=== PATIENT | male | born 1940 | race Caucasian/White ===

== ENCOUNTER → 2017-12-16 10:57 | Outpatient (CLI) | payer MEDICARE, OTHER, SELFPAY ==
[2017-12-16 12:11] LABS: PSA,Total- Diagnostic 3.18 ng/mL (0.0-4.0)
== END ==
PROVIDERS: Family Provider Preventive Medicine Occupational Medicine; PCP Preventive Medicine Occupational Medicine; Visit Provider Nurse Practitioner Adult Health
DX: C61 Malignant neoplasm of prostate (principal)
CPT/HCPCS: 36415; 84153; 84403

== ENCOUNTER → 2018-01-15 17:15 | Outpatient (CLI) | payer MEDICARE, OTHER, SELFPAY ==
--- NOTE | 2018-01-15 | IMM_PTH ---
PATIENT: JOSIE KERNS LOC: [facility] U#:[id number] AGE/SX: 85/M ROOM: RE01/15/[address]: Dr. Vega Azevedo MD : 1940 BED: DIS: SPEC #: [id number] RECD: 01/19/18 11:19 STATUS: GEORGES RELiza #: [id number] JEREMY: 01/15/18 00:[address]: Vega Azevedo DEPT: IMMUNOHISTOCHEMISTRY RECD BY: Pat Tony ENTERED: 01/19/18 11:21 SP TYPE: IMMUNO OTHR DR: Dr. Nathan Black DO Tissues: A - PROSTATE RIGHT B - PROSTATE RIGHT D - PROSTATE LEFT E - PROSTATE LEFT F - PROSTATE LEFT Procedures: 34BE12 (add) P40 (add) 34BE12 (initial) PHYSICIAN & INSTITUTION [place] [id number] SPECIMEN INFORMATION: Tissue Source: A - Right apex, B - Right mid, D - Left apex, E - Left mid, F - Left base Clinical Info: Elevated PSA Specimen Number: [id number] A, B, D, E, F CPT code: 70236, 62703 x9 METHODOLOGY: Deparaffinized sections of prefer/formalin-fixed tissue or PAP/DQ stained slides are incubated with monoclonal/polyclonal antibodies/oligonucleotide probes. Localization is made via biotin free immunoperoxidase method. Appropriate controls are performed and reacted as expected. Results on target cell population are indicated in the following table: RESULTS: ANTIBODY / CLONE RESULT Block A P40 (BC28) negative 34BE12 (34BE12) negative Block B P40 (BC28) negative 34BE12 (34BE12) negative Block D P40 (BC28) negative 34BE12 (34BE12) negative Block E P40 (BC28) negative 34BE12 (34BE12) negative Block F P40 (BC28) negative 34BE12 (34BE12) negative These tests were developed and their performance characteristics determined by [facility]. They may not have been cleared or approved by the U.S. Food and Drug Administration. The FDA has determined that such clearance or approval is not necessary. INTERPRETATION: A. Right prostate, apex, core biopsy: Adenocarcinoma. B. Right prostate, mid, core biopsy: Adenocarcinoma. D. Left prostate, apex, core biopsy: Adenocarcinoma. E. Left prostate, mid, core biopsy: Focal atypical acinar proliferation suspicious for carcinoma. F. Left prostate, base, core biopsy: Adenocarcinoma. AM:luis 01/20/18
--- NOTE | 2018-01-15 11:15 | PROSBIL_PTH ---
PATIENT: JOSIE KERNS LOC: [facility] U#:[id number] AGE/SX: 85/M ROOM: RE01/15/[address]: Dr. Vega Azevedo MD : 1940 BED: DIS: SPEC #: [id number] RECD: 01/15/18 16:34 STATUS: GEORGES RELiza #: [id number] JEREMY: 01/15/18 11:[address]: Vega Azevedo DEPT: SURGICAL PATHOLOGY RECD BY: Jerald Hale ENTERED: 01/16/18 10:57 SP TYPE: PROST BX VIVIANA DR: Dr. Nathan Black DO Tissues: A - PROSTATE RIGHT B - PROSTATE RIGHT C - PROSTATE RIGHT D - PROSTATE LEFT E - PROSTATE LEFT F - PROSTATE LEFT Procedures: PROSTATE BX HEADER OPERATION: Prostate biopsy PRE-OP DIAGNOSIS: Elevated PSA TISSUE SUBMITTED: A - Right apex, B - Right mid, C - Right base, D - Left apex, E - Left mid, F - Left base MICROSCOPIC DIAGNOSIS A. Right prostate, apex, core biopsy: Adenocarcinoma: [place] grade: 6 (3+3) Cores involved: 2 out of 2 Tissue involved: 5% Greatest tumor length: 8 mm (discontinuous). B. Right prostate, mid, core biopsy: Adenocarcinoma: [place] grade: 6 (3+3) Cores involved: 2 out of 2 Tissue involved: 5% Greatest tumor length: 3 mm Perineural invasion: Positive C. Right prostate, base, core biopsy: Adenocarcinoma: Matthew grade: 6 (3+3) Cores involved: 2 out of 2 Tissue involved: 55% Greatest tumor length: 10 mm Perineural invasion: Positive D. Left prostate, apex, core biopsy: Adenocarcinoma: [place] grade: 6 (3+3) Cores involved: 1 out of 2 Tissue involved: 1% Greatest tumor length: 1 mm E. Left prostate, mid, core biopsy: Atypical small acinar proliferation suspicious for minute focus of adenocarcinoma. F. Left prostate, base, core biopsy: Adenocarcinoma: Matthew grade: 6 (3+3) Cores involved: 1 out of 2 Tissue involved: 20% Greatest tumor length: 4 mm AM:luis 01/19/18 COMMENT Immunohistochemistry ([id number]) supports the above diagnosis. Reference is made to the patient?s prostate, needle core biopsies from 2017 ([id number]) in which adenocarcinoma was identified. MICROSCOPIC DESCRIPTION Slides are reviewed. GROSS DESCRIPTION A - Received is one container designated prostate, right apex. The specimen consists of two elongated fragments of light holden-white soft tissue measuring 1.3 and 1.5 cm in length and 0.1 cm in diameter. The specimen is totally submitted in one cassette. B - Received is one container designated prostate, right mid. The specimen consists of two elongated fragments of light holden-white soft tissue each measuring 1.5 cm in length and 0.1 cm in diameter. The specimen is totally submitted in one cassette. C - Received is one container designated prostate, right base. The specimen consists of two elongated fragments of light holden-white soft tissue measuring 1 and 1.4 cm in length and 0.1 cm in diameter. The specimen is totally submitted in one cassette. D - Received is one container designated prostate, left apex. The specimen consists of two elongated fragments of light holden-white soft tissue each measuring 1.3 cm in length and 0.1 cm in diameter. The specimen is totally submitted in one cassette. E - Received is one container designated prostate, left mid. The specimen consists of two elongated fragments of light holden-white soft tissue each measuring 1.2 cm in length and 0.1 cm in diameter. The specimen is totally submitted in one cassette. F - Received is one container designated prostate, left base. The specimen consists of two elongated fragments of light holden-white soft tissue each measuring 1.5 cm in length and 0.1 cm in diameter. The specimen is totally submitted in one cassette. / MARCIO:luis 01/16/18 TC:0 CPT: G0146 ADDENDUM ADDENDUM ADDENDUM ADDENDUM ADDENDUM ADDENDUM ADDENDUM ADDENDUM 03/11/2018 14:24 ADDENDUM 03/11/2018 14:24 ADDENDUM 03/11/2018 14:24 ADDENDUM 03/11/2018 14:24 ADDENDUM 03/11/2018 14:24 An order for Oncotype testing was received from Dr. Azevedo. This necessitated case review, block and slide selection by pathologist at [facility]. Genomic Prostate Score = 52 Results of the complete Oncotype testing (Jumpzter report) are viewable in EMR under: Reports - Pathology - Lab Pathology Report, Scanned.
== END ==
PROVIDERS: Family Provider Preventive Medicine Occupational Medicine; PCP Preventive Medicine Occupational Medicine; Visit Provider Urology
DX: R97.20 Elevated prostate specific antigen [PSA] (principal)
CPT/HCPCS: 88305; 88341; 88342; G0416

== ENCOUNTER → 2018-10-30 12:23 | Outpatient (CLI) | payer MEDICARE, OTHER, SELFPAY ==
[2018-10-30 16:21] LABS: PSA,Total- Diagnostic 2.76 ng/mL (0.0-4.0)
== END ==
PROVIDERS: Family Provider Preventive Medicine Occupational Medicine; PCP Preventive Medicine Occupational Medicine; Referring Provider Urology; Visit Provider Urology
DX: C61 Malignant neoplasm of prostate (principal)
CPT/HCPCS: 36415; 84153

== ENCOUNTER → 2019-03-31 07:01 | Outpatient (CLI) | payer MEDICARE, OTHER, SELFPAY ==
[2019-03-03 10:56] VITALS: BMI 26.1
[2019-03-03 14:22] VITALS: BMI 26.1
--- NOTE | 2019-03-31 08:09 | CT_ITS ---
STUDY: CT ABDOMEN AND PELVIS WITH CONTRAST REASON FOR EXAM: Male, 78 years old. Incisional hernia and post surgery RADIATION DOSAGE (If Supplied By Facility): DLP = ( 772.24 ) mGycm TECHNIQUE: Transaxial images were obtained from the dome of the diaphragm to the symphysis pubis with oral contrast. 100 ml of Isovue 300 contrast was administered. Sagittal and coronal images were reconstructed. Individualized dose optimization techniques were used for this CT. COMPARISON: CT abdomen pelvis January 21, 2017 FINDINGS: The visualized lung bases are clear. The visualized portions of the heart and pericardium are within normal limits. There are no calcified gallstones present. The liver is within normal limits. There are no suspicious hepatic lesions. The spleen is normal in size. The pancreas is within normal limits. The adrenal glands are within normal limits. There are no obstructing renal stones. There is no hydronephrosis. There are no focal renal lesions. Normal visualized stomach. There is no bowel obstruction or inflammation. There is prominent stool throughout the colon. The appendix is not visualized, but there are no findings to suggest acute appendicitis. There is an infrarenal abdominal aortic aneurysm measuring 3.5 cm in diameter. There is no abdominal or pelvic free air, free fluid, fluid collection or lymphadenopathy. Several small ventral fat-containing hernias are present adjacent to the incision. There is a right inguinal fat-containing hernia. There are no destructive osseous lesions. CT/Abdomen/Pelvis WITH Contrast IMPRESSION: Small ventral fat-containing hernias adjacent to the midline incision. Right inguinal fat-containing hernia. Infrarenal abdominal aortic aneurysm measuring 3.5 cm in diameter. Prominent stool throughout the colon suggesting constipation. Electronically Signed: Tien Nice, at 19:31 EDT Tel , Service support ,
[2019-03-31 08:25] LABS: CREATININE FINGERSTICK 1.1 mg/dL (0.70-1.30)
--- NOTE | 2019-03-31 12:50 | PFT ---
INTRODUCTION: The patient is a 78-year-old male that presents for pulmonary function studies secondary to a diagnosis of COPD. Respiratory therapy reports good patient effort. Bronchodilators were used during testing. INTERPRETATION: Forced expiration spirometry demonstrates the presence of a severe large airways obstructive ventilatory defect. There was a significant response to aerosolized bronchodilators, based upon change noted in FVC. Spirograms are of good quality and do not plateau indicating slow emptying of the lungs. Body plethysmography was performed and reveals lung volumes to be within normal limits. Diffusing capacity by single breath CO is within normal limits as well. There has been improvement in the patient's pulmonary function studies since they were last completed in 2017. IMPRESSION: Partially reversible severe large airways obstructive ventilatory defect with preserved lung volumes and diffusing capacity.
== END ==
PROVIDERS: Family Provider Preventive Medicine Occupational Medicine; PCP Preventive Medicine Occupational Medicine; Referring Provider Surgery; Visit Provider Internal Medicine Critical Care Medicine
DX: J44.9 Chronic obstructive pulmonary disease, unspecified (principal); K43.2 Incisional hernia without obstruction or gangrene
CPT/HCPCS: 74177; 94060; 94726; 94729; Q9967

== ENCOUNTER → 2019-04-02 11:07 | Outpatient (CLI) | payer MEDICARE, OTHER, SELFPAY ==
[2019-03-03 10:56] VITALS: BMI 26.1
[2019-03-03 14:22] VITALS: BMI 26.1
[2019-04-02 11:36] VITALS: PULSE 3; PULSE 79; PULSE 82; PULSE 85; PULSE 88; PULSE 90; PULSE 91; O2SAT 92; O2SAT 929; O2SAT 93; O2SAT 97
--- NOTE | 2019-04-03 07:04 | PCM.PSN.6M ---
PSN 6 Minute Walk Test - 6 Minute Walk Test 6 Minute Walk Test: 6 Minute Walk Test PSN:6-Minute Walk Test Start: 04/02/19 11:36 Freq: Status: Active Protocol: RESP.6MINW Document 04/02/19 11:36 [facility] (Rec: 04/02/19 11:40 [facility] [id number]) 6 Minute Walk Test Date Performed 04/02/19 Time Performed 11:00 Height 5 ft 8 in Weight: 165 lb Weight in Pounds 165.[address]: Godwin Vines Assistive device used: None Pre-test Oxygen Delivery Method Room Air Pulse Ox (%) 97 Pulse Rate (60-100 beats/min) 79 Dyspnea Natalee Scale (0-10) 0 1st minute Oxygen Delivery Method Room Air Pulse Ox (%) 92 Pulse Rate (60-100 beats/min) 85 Dyspnea Natalee Scale (0-10) 0 2nd minute Oxygen Delivery Method Room Air Pulse Ox (%) 93 Pulse Rate (60-100 beats/min) 85 Dyspnea Natalee Scale (0-10) 2 3rd minute Oxygen Delivery Method Room Air Pulse Ox (%) 93 Pulse Rate (60-100 beats/min) 88 Dyspnea Natalee Scale (0-10) 2 4th minute Oxygen Delivery Method Room Air Pulse Ox (%) 93 Pulse Rate (60-100 beats/min) 90 Dyspnea Natalee Scale (0-10) 2 5th minute Oxygen Delivery Method Room Air Pulse Ox (%) 93 Pulse Rate (60-100 beats/min) 91 Dyspnea Natalee Scale (0-10) 3 Reported Symptoms Increased Work of Breathing 6th minute Oxygen Delivery Method Room Air Pulse Ox (%) 929 Pulse Rate (60-100 beats/min) 3 L Reported Symptoms Increased Work of Breathing Post-test Oxygen Delivery Method Room Air Pulse Ox (%) 97 Pulse Rate (60-100 beats/min) 82 Dyspnea Natalee Scale (0-10) 0 Full Laps Walked 17 Partial Lap, Number of Tiles Walked 34 Total Distance Walked (ft) 1037 - Interpretation Interpretation: The patient ambulated 1037 feet over the course of 6 minutes beginning on room air without assistive devices or breaks. Pretesting oxygen saturation was noted to be 97% on room air. With ambulation, the nupur oxygen saturation was 92%. This represents a significant exertional oxygen desaturation. - Recommendations Recommendations: There is no indication for the use of supplemental oxygen at this time. However, close interval follow-up is recommended, given the degree of oxygen desaturation noted during the study.
== END ==
PROVIDERS: Family Provider Preventive Medicine Occupational Medicine; PCP Preventive Medicine Occupational Medicine; Referring Provider Family Medicine; Visit Provider Family Medicine
DX: J44.9 Chronic obstructive pulmonary disease, unspecified (principal)
CPT/HCPCS: 94618

== ENCOUNTER → 2019-08-17 14:48 | Outpatient (CLI) | payer MEDICARE, OTHER, SELFPAY ==
[2019-07-27 08:11] VITALS: BMI 25.7
[2019-08-18 07:15] LABS: PSA,Total- Diagnostic 2.32 ng/mL (0.0-4.0)
== END ==
PROVIDERS: Family Provider Preventive Medicine Occupational Medicine; PCP Preventive Medicine Occupational Medicine; Referring Provider Urology; Visit Provider Urology
DX: R97.20 Elevated prostate specific antigen [PSA] (principal)
CPT/HCPCS: 36415; 84153; G0103

== ENCOUNTER → 2020-05-24 14:06 | Outpatient (CLI) | payer MEDICARE, OTHER, SELFPAY ==
[2020-05-24 13:28] VITALS: BMI 24.3
[2020-05-24 15:32] LABS: Absolute Lymphocyte Count 1.96 X10^3/uL (0.83-4.51); Absolute Neutrophil Count 5.4 X10^3/uL (2.0-7.7); Basophil# 0.07 X10^3/uL; Basophil% 0.8 % (0-1); Eosinophil# 0.28 X10^3/uL; Eosinophils% 3.3 % (0-5); Hematocrit 35.5 % (40-54); Hemoglobin 11.6 g/dL (13.0-16.5); Lymphocyte # 1.96 X10^3/ul (4.0); Lymphocyte % 23.1 % (19-41); Mean Corp Hgb Conc 32.7 g/dL (32-36); Mean Corpuscular Hgb 32.3 pg (27.0-32.0); Mean Corpuscular Volume 98.9 fL (80-94); Mean Platelet Vol. 9.4 fl (6.2-12.0); Monocyte% 9.4 % (0-10); NRBC Flagged by Analyzer 0 % (0-5); Neutrophil # 5.35 X10^3/uL (2.7-7.7); Platelet Count 265 K/mm3 (150-450); RBC Distribution Width CV 13.8 % (11.6-14.6); RBC Distribution Width SD 50.4 fl (35.1-43.9); Red Blood Count 3.59 M/mm3 (4.6-6.2); White Blood Count 8.5 K/mm3 (4.4-11.0)
[2020-05-24 15:44] LABS: ALB/GLOB Ratio 0.9 RATIO (0.9-2.4); AST(SGOT) 17 U/L (15-37); Alanine Aminotransfer ALT/SGPT 20 U/L (16-61); Albumin, Serum 3.6 g/dL (3.2-5.0); Alkaline Phosphatase 80 U/L (45-117); Anion Gap 3 (5-15); BUN 17 mg/dL (7-18); Calcium,Total 8.9 mg/dL (8.5-10.1); Chloride 107 mmol/L (98-107); Cholesterol 189 mg/dL (200); Creatinine, Serum 1.55 mg/dL (0.70-1.30); EST Glomerular Filtration Rate 46 mL/min (>60); Est Glom Filt Rate - Afr Amer 56 mL/min (>60); Globulin 4.1 g/dL (2.2-4.2); Glucose 91 mg/dL (74-106); High Density Lipoprotein 44 mg/dL; Protein, Total 7.7 g/dL (6.4-8.2); Sodium Level 139 mmol/L (136-145); Triglycerides 84 mg/dL; Very Low Density Lipoprotein 17 mg/dL (5-40)
== END ==
PROVIDERS: PCP Internal Medicine; Referring Provider Internal Medicine; Visit Provider Internal Medicine
DX: I25.10 Atherosclerotic heart disease of native coronary artery without angina pectoris (principal); E78.5 Hyperlipidemia, unspecified
CPT/HCPCS: 36415; 80053; 80061; 85025

== ENCOUNTER → 2020-07-13 13:47 | Outpatient (CLI) | payer MEDICARE, OTHER, SELFPAY ==
[2020-06-28 08:51] VITALS: BMI 26.9
[2020-07-13 13:45] VITALS: PULSE 69; PULSE 80; PULSE 81; PULSE 89; PULSE 95; PULSE 97; O2SAT 90; O2SAT 92; O2SAT 93; O2SAT 96; O2SAT 98
--- NOTE | 2020-07-13 15:33 | PCM.PSN.6M ---
PSN 6 Minute Walk Test - 6 Minute Walk Test 6 Minute Walk Test: 6 Minute Walk Test PSN:6-Minute Walk Test Start: 07/13/20 14:14 Freq: Status: Active Protocol: RESP.6MINW Document 07/13/20 13:45 AE (Rec: 07/13/20 14:17 [facility] [id number]) 6 Minute Walk Test Date Performed 07/13/20 Time Performed 13:45 Height 5 ft 8 in Weight: 74.843 kg Weight in Pounds 165.[address]: Dr Vines Assistive device used: None Pre-test Oxygen Delivery Method Room Air Pulse Ox (%) 93 Pulse Rate (60-100 beats/min) 69 Dyspnea Natalee Scale (0-10) 0 Exertion Natalee Scale (6-20) 6 1st minute Oxygen Delivery Method Room Air Pulse Ox (%) 90 Pulse Rate (60-100 beats/min) 80 2nd minute Oxygen Delivery Method Room Air Pulse Ox (%) 90 Pulse Rate (60-100 beats/min) 89 3rd minute Oxygen Delivery Method Room Air Pulse Ox (%) 93 Pulse Rate (60-100 beats/min) 95 4th minute Oxygen Delivery Method Room Air Pulse Ox (%) 96 Pulse Rate (60-100 beats/min) 95 5th minute Oxygen Delivery Method Room Air Pulse Ox (%) 96 Pulse Rate (60-100 beats/min) 89 6th minute Oxygen Delivery Method Room Air Pulse Ox (%) 92 Pulse Rate (60-100 beats/min) 97 Dyspnea Natalee Scale (0-10) 2 Exertion Natalee Scale (6-20) 11 Post-test Oxygen Delivery Method Room Air Pulse Ox (%) 98 Pulse Rate (60-100 beats/min) 81 Full Laps Walked 13 Partial Lap, Number of Tiles Walked 7 Total Distance Walked (ft) 774 - Interpretation Interpretation: The patient was able to ambulate 774 feet over the course of 6 minutes on room air with no assistive devices or breaks. The patient did have significant desaturation as low as 90% and no significant tachycardia. - Recommendations Recommendations: No supplemental oxygen is indicated at this time. However, patient will need to be followed closely given level of desaturation.
== END ==
PROVIDERS: PCP Internal Medicine; Visit Provider Internal Medicine Critical Care Medicine
DX: J44.9 Chronic obstructive pulmonary disease, unspecified (principal); F17.201 Nicotine dependence, unspecified, in remission
CPT/HCPCS: 94618

== ENCOUNTER → 2020-10-06 06:30 | Outpatient (CLI) | payer MEDICARE, OTHER, SELFPAY ==
[2020-06-28 08:51] VITALS: BMI 26.9
--- NOTE | 2020-10-05 | IMM_PTH ---
PATIENT: JOSIE KERNS LOC: [facility] U#:[id number] AGE/SX: 85/M ROOM: RE10/06/[address]: Dr. Vega Azeveod MD : 1940 BED: DIS: SPEC #: [id number] RECD: 10/09/20 14:08 STATUS: GEORGES RELiza #: [id number] JEREMY: 10/05/20 00:[address]: Vega Azevedo DEPT: IMMUNOHISTOCHEMISTRY RECD BY: Pat Tony ENTERED: 10/09/20 14:09 SP TYPE: IMMUNO OTHR DR: Dr. Bradley Castrejon MD Tissues: D - PROSTATE LEFT E - PROSTATE LEFT F - PROSTATE LEFT Procedures: 34BE12 (add) P40 (add) 34BE12 (initial) PHYSICIAN & INSTITUTION [place] [id number] SPECIMEN INFORMATION: Tissue Source: D - Left apex, E - Left mid, F - Left base Clinical Info: Elevated PSA Specimen Number: [id number]-F CPT code: 58903, 86191 x5 METHODOLOGY: Deparaffinized sections of prefer/formalin-fixed tissue or PAP/DQ stained slides are incubated with monoclonal/polyclonal antibodies/oligonucleotide probes. Localization is made via biotin free immunoperoxidase method. Appropriate controls are performed and reacted as expected. Results on target cell population are indicated in the following table: RESULTS: ANTIBODY / CLONE RESULT Block D P40 (BC28) positive 34BE12 (34BE12) positive Block E P40 (BC28) positive 34BE12 (34BE12) positive Block F P40 (BC28) positive 34BE12 (34BE12) positive These tests were developed and their performance characteristics determined by [facility]. They may not have been cleared or approved by the U.S. Food and Drug Administration. The FDA has determined that such clearance or approval is not necessary. The above immunohistochemical/dualISH markers are ordered and reviewed by the Pathologist. INTERPRETATION: D. Left prostate, apex, core biopsy: Benign prostatic tissue. E. Left prostate, mid, core biopsy: Benign prostatic tissue. F. Left prostate, base, core biopsy: Benign prostatic tissue. AM:luis 10/10/2020
--- NOTE | 2020-10-05 08:00 | PROSBIL_PTH ---
PATIENT: JOSIE KERNS LOC: [facility] U#:[id number] AGE/SX: 85/M ROOM: RE10/06/[address]: Dr. Vega Azevedo MD : 1940 BED: DIS: SPEC #: [id number] RECD: 10/05/20 17:52 STATUS: GEORGES LISA #: [id number] JEREMY: 10/05/20 08:[address]: Vega Azevedo DEPT: SURGICAL PATHOLOGY RECD BY: Agnes Heaton ENTERED: 10/06/20 07:19 SP TYPE: PROST BX VIVIANA DR: Dr. Bradley Castrejon MD Tissues: A - PROSTATE RIGHT B - PROSTATE RIGHT C - PROSTATE RIGHT D - PROSTATE LEFT E - PROSTATE LEFT F - PROSTATE LEFT Procedures: PROSTATE BX HEADER OPERATION: TRUS/biopsy PRE-OP DIAGNOSIS: Elevated PSA TISSUE SUBMITTED: A - Right apex, B - Right mid, C - Right base, D - Left apex, E - Left mid, F - Left base MICROSCOPIC DIAGNOSIS A. Right prostate, apex, core biopsy: Adenocarcinoma. [place] grade: 7 (4+3) Cores involved: 1 out of 1 Tissue involved: 80% Greatest tumor length: 4 mm B. Right prostate, mid, core biopsy: Adenocarcinoma. [place] grade: 7 (4+3) Cores involved: 1 out of 1 Tissue involved: 90% Greatest tumor length: 11 mm C. Right prostate, base, core biopsy: Adenocarcinoma. Matthew grade: 7 (4+3) Cores involved: 1 out of 1 Tissue involved: 70% Greatest tumor length: 7 mm D. Left prostate, apex, core biopsy: Benign prostatic tissue. See comment. E. Left prostate, mid, core biopsy: Benign prostatic tissue. See comment. F. Left prostate, base, core biopsy: Focal high-grade prostatic intraepithelial neoplasia (HGPIN). See comment. AM:luis 10/09/2020 COMMENT D-F. Immunohistochemistry ([id number]) supports the above diagnosis. Case has been reviewed in consultation with Dr. Balbuena who concurs with the above diagnosis. IDC:MARCIO MICROSCOPIC DESCRIPTION Slides are reviewed. GROSS DESCRIPTION A - Received is one container designated prostate, right apex. The specimen consists of one elongated fragment of light holden-white soft tissue measuring 0.8 cm in length and 0.1 cm in diameter. The specimen is totally submitted in one cassette. B - Received is one container designated prostate, right mid. The specimen consists of one elongated fragment of light holden-white soft tissue measuring 1.5 cm in length and 0.1 cm in diameter. The specimen is totally submitted in one cassette. C - Received is one container designated prostate, right base. The specimen consists of one elongated fragment of light holden-white soft tissue measuring 1.5 cm in length and 0.1 cm in diameter. The specimen is totally submitted in one cassette. D - Received is one container designated prostate, left apex. The specimen consists of two elongated fragments of light holden-white soft tissue each measuring 0.8 cm in length and 0.1 cm in diameter. The specimen is totally submitted in one cassette. E - Received is one container designated prostate, left mid. The specimen consists of one elongated fragment of light holden-white soft tissue measuring 1 cm in length and 0.1 cm in diameter. The specimen is totally submitted in one cassette. F - Received is one container designated prostate, left base. The specimen consists of one elongated fragment of light holden-white soft tissue measuring 1.5 cm in length and 0.1 cm in diameter. The specimen is totally submitted in one cassette. / AM:luis 10/06/2020 TC:0 CPT: G0146
== END ==
PROVIDERS: PCP Internal Medicine; Referring Provider Urology; Visit Provider Urology
DX: R97.20 Elevated prostate specific antigen [PSA] (principal)
CPT/HCPCS: 88305; 88341; 88342; G0416

== ENCOUNTER → 2020-10-17 07:22 | Outpatient (CLI) | payer MEDICARE, OTHER, SELFPAY ==
[2020-06-28 08:51] VITALS: BMI 26.9
--- NOTE | 2020-10-17 07:30 | CT_ITS ---
STUDY: CT ABDOMEN AND PELVIS WITH AND WITHOUT CONTRAST REASON FOR EXAM: Male, 80 years old. NEOPLASM OF PROSTATE -- SURG-APPY,RIGHT HEMICOLECTOMY,INGUINAL HERNIA REPAIR RADIATION DOSAGE (If Supplied By Facility): CTDIvol = ( 12.39 ) mGy, DLP = ( 1731.87 ) mGycm TECHNIQUE: Transaxial images were obtained from the dome of the diaphragm to the symphysis pubis without oral contrast. IV 75mL Isovue-300 was administered. Sagittal and coronal images were reconstructed. Individualized dose optimization techniques were used for this CT. COMPARISON: Comparison is made with prior examination dated 03/31/2019. FINDINGS: The visualized lung bases are unremarkable. The visualized portions of the heart are within normal limits. Normal liver. Normal gallbladder and extrahepatic biliary system. Normal spleen. Normal pancreas. Normal bilateral adrenal glands. Normal right kidney. Normal left kidney. Normal visualized stomach. Normal small intestine. The patient is status post right hemicolectomy. Sigmoid diverticulosis. There is diffuse atherosclerotic calcification of the abdominal aorta and its major visceral branches. There is evidence of a saccular infrarenal abdominal aortic aneurysm with a transverse dimension of 3.5 cm. 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 Normal inferior vena cava. Normal retroperitoneum. Normal urinary bladder. There is enlargement of the prostate gland. It measures 4.8 cm x 4.1 cm. There is a right-sided inguinal hernia containing adipose tissue. Small left periumbilical hernia containing fat. Trace narrowing and disc degeneration at the L5-S1 level. CT/CT Abd/Pelvis W/WO Contrast IMPRESSION: Status post right hemicolectomy. Prostatic enlargement. Stable right inguinal and left para umbilical hernia containing fat. Stable aneurysmal dilatation of the infrarenal abdominal aorta and right common iliac artery. Electronically Signed: Murphy Orozco MD at 10:13 EST , Service support ,
[2020-10-17 07:51] LABS: CREATININE FINGERSTICK 1.7 mg/dL (0.70-1.30)
== END ==
PROVIDERS: PCP Internal Medicine; Referring Provider Urology; Visit Provider Urology
DX: C61 Malignant neoplasm of prostate (principal)
CPT/HCPCS: 74178; 87426; Q9967

== ENCOUNTER → 2020-10-20 09:52 | Outpatient (CLI) | payer MEDICARE, OTHER, SELFPAY ==
[2020-06-28 08:51] VITALS: BMI 26.9
--- NOTE | 2020-10-20 09:56 | NM_ITS ---
CLINICAL: 80-year-old male with reported history of carcinoma of the prostate. WHOLE BODY 99m Tc MDP RADIONUCLIDE BONE SCINTIGRAPHY COMPARISON: CT of the abdomen-pelvis report 10/17/2020 FINDINGS: Following the intravenous administration of approximately 25.0 mCi of 99m Tc MDP, whole body bone images reveal: 1. Increased radiopharmaceutical concentration is defined in the acromioclavicular compartments of both shoulders, wrist articulations bilaterally, upper cervical spine posteriorly on the left, mid cervical spine posteriorly on the right, fifth and seventh thoracic vertebra, fifth lumbar vertebra posteriorly on the left and right. 2. The remaining skeletal structures are scintigraphically unremarkable with normal-appearing renal images and urinary bladder activity identified. Intense tracer concentration is defined in the proximal-distal sternum most consistent with reported recent median sternotomy. NM/Bone Scan Whole Body IMPRESSION: 1. The increase in tracer distribution identified in the bilateral shoulders and wrists, cervical, thoracic and lumbar spine is most consistent with degenerative arthritis. 2. There is no definitive scintigraphic evidence of diffuse axial skeletal metastatic disease on the current examination. Electronically Signed: Marquise Prado DO at 8:18 EST Tel , Service support ,
== END ==
PROVIDERS: PCP Internal Medicine; Referring Provider Urology; Visit Provider Urology
DX: C61 Malignant neoplasm of prostate (principal)
CPT/HCPCS: 78306

== ENCOUNTER 2020-11-15 09:03 | Day surgery (SDC) | payer MEDICARE, OTHER, SELFPAY ==
[2020-06-28 08:51] VITALS: BMI 26.9
[2020-11-15 09:33] VITALS: BP 105/61; PULSE 60; RESP 16; TEMP 36.4; O2SAT 94; BMI 25.9
[2020-11-15] MEDS: Lactated Ringers 1,000 ML 100 ML IV (10:03)
[2020-11-15] MEDS: Cefazolin 2 GM in 0.9% Normal Saline 100 ML IV (10:38)
[2020-11-15] MEDS: 0.9% Saline Lock 10 ML Syringe IV (11:02)
--- NOTE | 2020-11-15 11:03 | DCINST_ITS ---
Discharge Diet: Light diet - advance as tolerated Discharge Activity: Return to Normal Activity Allergies/Adverse Reactions: Allergies No Known Allergies Allergy (Verified 11/08/20 15:13) Medications to take at Discharge Tamsulosin HCl 0.4 mg PO DAILY 01/25/16 Incruse Ellipta 62.5 mcg/actuation powder for inhalation 1 inh INHALATION DAILY #30 ea NS 04/04/20 multivitamin 1 cap PO DAILY 05/10/20 albuterol sulfate 2.5 mg INHALATION Q4H PRN #180 ml 05/24/20 aspirin 81 mg tablet,delayed release 81 mg PO DAILY 05/24/20 bupropion HCl 150 mg 24 hr tablet, extended release 150 mg PO DAILY #90 tab 05/24/20 budesonide-formoterol HFA 160 mcg-4.5 mcg/actuation aerosol inhaler 2 puff INHALATION BID #10.2 g 06/28/20 lisinopril 10 mg tablet 10 mg PO DAILY tab 06/28/20 metoprolol succinate 25 mg tablet,extended release 24 hr 12.5 mg PO BID tab 06/28/20 lamotrigine 150 mg tablet 150 mg PO DAILY #90 tab 10/12/20 Primary Care Physician: Bradley Castrejon MD [Primary Care Provider] - Test Results: Test results from this visit will be discussed in further detail at your follow- up appointment, if applicable. Please Follow Up With: Vega Azevedo MD When: KEEP APPT FOR NEXT INJECTION
--- NOTE | 2020-11-15 11:03 | PCM.OPRPT ---
Report of Operation Date of Procedure: 11/15/20 Pre-Operative Diagnosis: Prostate cancer Post-Operative Diagnosis: Same Surgery/Procedure Performed:: Placement of gold fiducial markers in the prostate for radiation treatment planning, placement of a spacer gel matrix organ at risk gel matrix. Description of Surgical Findings:: Patient was taken back to the operating room after smooth induction of anesthesia he was placed supine on the table. The genitals and perineum were prepped and draped in usual sterile fashion. I then introduced a biplanar ultrasound probe into the rectum and performed ultrasonography and identified the Denonvilliers' fascia the prostate mid base and apex and seminal vesicles. The spacer gel mix was then prepared on the back table per manufactures instruction. Under ultrasound guidance in the midline perineum a bevel needle down we advanced through the perineum below the prostate into the space of Denonvilliers' fascia. This space which could be identified by ultrasound with a bright white layer between the prostate and the rectum. I then injected a puff of normal saline to identify the space further. After I confirmed that the needle was in the correct space in the mid prostate and the space of Denonvilliers' fascia between the rectum and the prostate. Then over the course of 15 seconds the gel matrix was injected slowly there was nice separation between the prostate and the rectum at the gel matrix was injected. The position of the gel matrix was confirmed by ultrasound. Then the injection needle was removed intact. I then introduced a biplanar ultrasound probe into the rectum and performed ultrasonography on the prostate. The prostate seminal vesicles, the base, the mid prostate, the apex were identified. The Denonvilliers' fascia was also identified. I first advanced the first marker in the patient's right side to the mid prostate and deployed the first semiconductor wafers marker. The second semiconductor wafers marker was then advanced under ultrasound guidance to the patient's left mid prostate . And finally the third semiconductor wafers marker was advanced of the prostate left apex and deployed under ultrasound guidance. All 3 markers were confirmed to be present within the prostate on ultrasonography. Patient's perineum was cleaned patient was taken out of stirrups and then taken back to the PACU in good condition. Type of Anesthesia:: General - Admit VTE Documentation VTE Present on Admission: No
[2020-11-15 11:20] VITALS: BP 105/61; BP 110/69; PULSE 60; RESP 16; TEMP 36; O2SAT 98
[2020-11-15 11:30] VITALS: BP 102/54; BP 105/61; PULSE 58; RESP 16; O2SAT 98
[2020-11-15 11:46] VITALS: BP 105/61; BP 120/66; PULSE 60; RESP 16; TEMP 36.3; O2SAT 99
[2020-11-15 12:30] VITALS: BP 105/61; BP 116/81; PULSE 90; RESP 16; TEMP 36.1; O2SAT 99
== END 2020-11-15 13:01 | disposition home or self-care (01) ==
LOC: SDC 09:04 → AC 09:04
PROVIDERS: PCP Internal Medicine; Referring Provider Urology; Visit Provider Urology
PROC: (CPT 55874; principal; 2020-11-15 10:45)
DX: C61 Malignant neoplasm of prostate (principal); I25.10 Atherosclerotic heart disease of native coronary artery without angina pectoris; Z95.1 Presence of aortocoronary bypass graft; N40.3 Nodular prostate with lower urinary tract symptoms; R97.20 Elevated prostate specific antigen [PSA]; I10 Essential (primary) hypertension; Z87.891 Personal history of nicotine dependence; E78.00 Pure hypercholesterolemia, unspecified; J44.9 Chronic obstructive pulmonary disease, unspecified
CPT/HCPCS: 00902; 55875; 55876; C9803; J7120; A4216

== ENCOUNTER → 2020-11-28 10:49 | Outpatient (CLI) | payer MEDICARE, OTHER, SELFPAY ==
[2020-11-15 09:33] VITALS: BMI 25.9
[2020-11-28 12:13] LABS: Absolute Lymphocyte Count 1.44 X10^3/uL (0.83-4.51); Absolute Neutrophil Count 4.5 X10^3/uL (2.0-7.7); Basophil# 0.06 X10^3/uL; Basophil% 0.8 % (0-1); Eosinophils% 4.2 % (0-5); Lymphocyte # 1.44 X10^3/ul (4.0); Lymphocyte % 20.2 % (19-41); Mean Corp Hgb Conc 31.4 g/dL (32-36); Mean Corpuscular Hgb 31.6 pg (27.0-32.0); Mean Corpuscular Volume 100.6 fL (80-94); Mean Platelet Vol. 9.6 fl (6.2-12.0); Monocyte# 0.77 X10^3/uL; Monocyte% 10.8 % (0-10); NRBC Flagged by Analyzer 0 % (0-5); Neutrophil # 4.54 X10^3/uL (2.7-7.7); Neutrophil % 63.7 % (47-70); Platelet Count 245 K/mm3 (150-450); RBC Distribution Width CV 13.5 % (11.6-14.6); RBC Distribution Width SD 49.3 fl (35.1-43.9); Red Blood Count 3.48 M/mm3 (4.6-6.2); White Blood Count 7.1 K/mm3 (4.4-11.0)
[2020-11-28 12:24] LABS: Creatinine, Serum 1.54 mg/dL (0.70-1.30); EST Glomerular Filtration Rate 47 mL/min (>60); Est Glom Filt Rate - Afr Amer 56 mL/min (>60); PSA,Total- Diagnostic 2.48 ng/mL (0.0-4.0)
== END ==
PROVIDERS: PCP Internal Medicine; Referring Provider Radiology Radiation Oncology; Visit Provider Radiology Radiation Oncology
DX: Z01.818 Encounter for other preprocedural examination (principal); C61 Malignant neoplasm of prostate
CPT/HCPCS: 36415; 82565; 84153; 85025

== ENCOUNTER → 2020-11-29 12:52 | Outpatient (CLI) | payer MEDICARE, OTHER, SELFPAY ==
[2020-11-15 09:33] VITALS: BMI 25.9
--- NOTE | 2020-11-29 12:55 | CT_ITS ---
STUDY: CT PELVIS WITH CONTRAST REASON FOR EXAM: Male, 80 years old. PROSTATE CA RADIATION DOSAGE (If Supplied By Facility): CTDIvol = ( 24.61 ) mGy, DLP = ( 2075.45 ) mGycm TECHNIQUE: Transaxial imaging of the pelvis was performed without oral contrast. Isovue 300 100 ml was administered intravenously. Individualized dose optimization techniques were used for this CT. COMPARISON: Comparison is made with prior study dated 04/16/2021. FINDINGS: Indentation at the bladder base due to prostatic enlargement. The urethra is unremarkable. Prostate is enlarged. It measures 4 cm x 3.9 cm. Metallic radiation seeds are seen within the prostate. Normal visualized small intestine. There are multiple colonic diverticula of the sigmoid colon consistent with chronic diverticulosis. There is no pelvic fluid. There is no pelvic lymphadenopathy or mass lesion. There is diffuse atherosclerotic calcification of the pelvic arteries. 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 Stable infrarenal abdominal aortic aneurysm with a transverse dimension of 3.4 cm. Mural thrombus is seen. Bilateral inguinal hernias containing fat. Small bilateral benign-appearing inguinal hernias. Normal osseous structures. CT/CT Pelvis W/CONT Therapy IMPRESSION: Prostatic enlargement with indentation at the bladder base. Metallic radiation seeds are seen within the prostate. The remainder of the examination is unchanged. Electronically Signed: Murphy Orozco MD at 15:13 EST , Service support ,
== END ==
PROVIDERS: PCP Internal Medicine; Referring Provider Radiology Radiation Oncology; Visit Provider Radiology Radiation Oncology
DX: C61 Malignant neoplasm of prostate (principal)
CPT/HCPCS: 51600; 72193; Q9965; Q9967

== ENCOUNTER → 2020-12-26 11:10 | Outpatient (CLI) | payer MEDICARE, OTHER, SELFPAY ==
[2020-12-25 13:15] VITALS: BMI 25.9
[2020-12-26 12:09] LABS: Absolute Lymphocyte Count 0.93 X10^3/uL (0.83-4.51); Absolute Neutrophil Count 3.7 X10^3/uL (2.0-7.7); Basophil# 0.07 X10^3/uL; Basophil% 1.2 % (0-1); Eosinophil# 0.39 X10^3/uL; Eosinophils% 6.8 % (0-5); Hematocrit 33.5 % (40-54); Hemoglobin 10.8 g/dL (13.0-16.5); Lymphocyte # 0.93 X10^3/ul (4.0); Lymphocyte % 16.2 % (19-41); Mean Corp Hgb Conc 32.2 g/dL (32-36); Mean Corpuscular Hgb 31.4 pg (27.0-32.0); Mean Corpuscular Volume 97.4 fL (80-94); Mean Platelet Vol. 9.6 fl (6.2-12.0); Monocyte# 0.64 X10^3/uL; Monocyte% 11.2 % (0-10); NRBC Flagged by Analyzer 0 % (0-5); Neutrophil # 3.69 X10^3/uL (2.7-7.7); Neutrophil % 64.4 % (47-70); Platelet Count 196 K/mm3 (150-450); RBC Distribution Width CV 12.8 % (11.6-14.6); RBC Distribution Width SD 45.7 fl (35.1-43.9); Red Blood Count 3.44 M/mm3 (4.6-6.2); White Blood Count 5.7 K/mm3 (4.4-11.0)
== END ==
PROVIDERS: PCP Internal Medicine; Referring Provider Radiology Radiation Oncology; Visit Provider Radiology Radiation Oncology
DX: C61 Malignant neoplasm of prostate (principal)
CPT/HCPCS: 36415; 85025

== ENCOUNTER → 2021-01-16 10:59 | Outpatient (CLI) | payer MEDICARE, OTHER, SELFPAY ==
[2020-12-25 13:15] VITALS: BMI 25.9
[2021-01-16 12:42] LABS: Absolute Lymphocyte Count 0.69 X10^3/uL (0.83-4.51); Absolute Neutrophil Count 3.7 X10^3/uL (2.0-7.7); Basophil# 0.03 X10^3/uL; Basophil% 0.5 % (0-1); Eosinophil# 0.33 X10^3/uL; Hematocrit 32.1 % (40-54); Hemoglobin 10.3 g/dL (13.0-16.5); Lymphocyte # 0.69 X10^3/ul (0.83-4.51); Lymphocyte % 12.6 % (19-41); Mean Corp Hgb Conc 32.1 g/dL (32-36); Mean Corpuscular Hgb 31.9 pg (27.0-32.0); Mean Corpuscular Volume 99.4 fL (80-94); Mean Platelet Vol. 9.4 fl (6.2-12.0); Monocyte# 0.68 X10^3/uL; Monocyte% 12.4 % (0-10); NRBC Flagged by Analyzer 0 % (0-5); Neutrophil # 3.74 X10^3/uL (2.7-7.7); Neutrophil % 68.3 % (47-70); Platelet Count 224 K/mm3 (150-450); RBC Distribution Width CV 13.2 % (11.6-14.6); RBC Distribution Width SD 47.8 fl (35.1-43.9); Red Blood Count 3.23 M/mm3 (4.6-6.2); White Blood Count 5.5 K/mm3 (4.4-11.0)
== END ==
PROVIDERS: PCP Internal Medicine
DX: C61 Malignant neoplasm of prostate (principal)
CPT/HCPCS: 36415; 85025

== ENCOUNTER 2021-01-19 17:50 | Emergency (ER) | payer MEDICARE, OTHER, SELFPAY ==
[2020-12-25 13:15] VITALS: BMI 25.9
[2021-01-19 17:52] VITALS: BP 128/85; PULSE 65; RESP 17; TEMP 36.3; O2SAT 98; BMI 26.4
--- NOTE | 2021-01-19 18:19 | EKG12_ITS ---
Test Reason : DYSRHYTHMIA Blood Pressure : / mmHG Vent. Rate : 060 BPM Atrial Rate : 060 BPM P-R Int : 178 ms QRS Dur : 100 ms QT Int : 436 ms P-R-T Axes : 054 059 066 degrees QTc Int : 436 ms Normal sinus rhythm Normal ECG Confirmed by JIM DELAROSA, BELA ([id number]), technical writer and editor JOANA ENCISO ([id number]) on 01/22/2021 9:52:03 AM Referred By: SENIA Confirmed By:DARYA FERNANDEZ MD
--- NOTE | 2021-01-19 18:32 | CT_ITS ---
STUDY: CT ABDOMEN AND PELVIS WITH CONTRAST REASON FOR EXAM: Male, 80 years old. Right upper quadrant abdominal pain. RADIATION DOSAGE (If Supplied By Facility): CTDIvol = ( 18.79 ) mGy, DLP = ( 893.27 ) mGycm TECHNIQUE: Transaxial images were obtained from the dome of the diaphragm to the symphysis pubis without oral contrast. IV 100mL Isovue-370 was administered. Sagittal and coronal images were reconstructed. Individualized dose optimization techniques were used for this CT. COMPARISON: 10/17/2020. FINDINGS: There is an 8 mm calcification in the right lung base. There is a calcification along the left pericardial surface. The heart is normal size. There are wires along the anterior pericardial surface suggesting prior external pacer. Normal liver. There is moderate abnormal edema of the gallbladder wall without gallstones or inflammatory process. There is no biliary ductal dilatation or choledocholithiasis. There are multiple benign calcified granulomata of the spleen. Normal pancreas. Normal bilateral adrenal glands. The right kidney is normal in size and cortical thickness. There is normal contrast enhancement. There is no renal calculi or hydronephrosis. There is mild stranding of the perinephric fat with thickening of the posterior pararenal fascial plane. Normal visualized right ureter. Left kidney is of normal size and cortical thickness. Normal contrast enhancement. Mild stranding of the perinephric fat. No renal calculi or hydronephrosis. Normal visualized left ureter. Normal visualized stomach. Normal small intestine. Is evidence of resection of the right colon with a ileum to proximal transverse colon anastomosis. The remainder of the colon is grossly normal. Atherosclerotic changes of the aorta. There is a fusiform infrarenal abdominal aortic aneurysm with a maximum diameter of 3.4 x 3.3 cm. 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 Normal inferior vena cava. Normal retroperitoneum. Normal urinary bladder. Prostate is normal in size. There are biopsy clips noted. Normal seminal vesicles. There is minimal free fluid in the posterior cul-de-sac. No free air is seen within the peritoneal cavity. There are 2 small supraumbilical ventral hernias of omental fat. There is a subcutaneous nodular density in the subcutaneous fat to the left of the umbilicus which may represent a small sebaceous cyst. Abdominal wall is otherwise unremarkable. Degenerative changes of the lumbar spine. There is minimal anterolisthesis of L4 on L5 without pars defects. CT/Abdomen/Pelvis W IV Cont ONLY IMPRESSION: 1. Mild edema of the gallbladder wall without gallstones or inflammatory process. The etiology is uncertain. 2. 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 3. Interval biopsy of the prostate when compared to the previous study. 4. No other abnormality when compared to 10/17/2020. Electronically Signed: Supa Rios DO at 20:33 EDT Tel [phone], Service support ,
--- NOTE | 2021-01-19 18:40 | ED.VIS.GI ---
History of Present Illness Chief Complaint: Abd Pain Informant: Patient - Abdominal Pain/Flank Pain Onset: Today Narrative: She is a 80-year-old male presenting with right upper quadrant abdominal pain. Patient said she got home from radiation therapy and took a nap. He normally does this. He woke up from his nap around noon and had sharp pain in his right upper quadrant. He denies any radiation. He had 2 episodes of associated vomiting. He denies any black or blood in his vomit. He states his symptoms are started to feel better now. He is never had a thing like this before. He denies any change in his bowel habits. He denies any other pain. He states now the abdominal pain feels more like an ache. Patient had his 33rd session of radiation for prostate cancer today. He is not currently on any chemotherapy. He does have a history of hemicolectomy after his bowels flipped. He does not drink alcohol. Denies any issues with acid reflux or his gallbladder. Denies any other complaints at this time. Past Medical History - Allergies and Home Meds Allergies/Adverse Reactions: Allergies No Known Allergies Allergy (Verified 01/19/21 17:51) Primary Care Physician: Bradley Castrejon MD [Primary Care Provider] - Past Medical History: - - Coronary artery disease, prostate cancer, volvulus of the colon, hyperlipidemia, SHELDON, COPD, BPH, bipolar disorder Surgical History: colectomy, - Lives: Spouse/ Significant Other Smoking Status: Former smoker - Family History Maternal Family History: Family History (Last Reviewed 12/25/20 @ 13:17 by Gissel Queen) Father Emphysema, unspecified Heart disease Mother Kidney disease Heart disease Brother Heart disease Family History: Reports: Heart Disease Sibling Family History: Family History (Last Reviewed 12/25/20 @ 13:17 by Gissel Queen) Father Emphysema, unspecified Heart disease Mother Kidney disease Heart disease Brother Heart disease Family History: Reports: Heart Disease Paternal Family History: Family History (Last Reviewed 12/25/20 @ 13:17 by Gsisel Queen) Father Emphysema, unspecified Heart disease Mother Kidney disease Heart disease Brother Heart disease Family History: Reports: Heart Disease Review of Systems General: Denies: Chills, Fever, Sweats Eyes: Denies: Visual changes - bilaterally, Diplopia ENT: Denies: Rhinorrhea, Sore throat Cardiovascular: Denies: Chest pain, Palpitations Respiratory: Denies: Dyspnea, Cough, Dyspnea on exertion Gastrointestinal: Reports: Abdominal pain, Nausea, Vomiting. Denies: Diarrhea, Melena, Hematochezia Genitourinary: Denies: Dysuria, Hematuria, Frequency Musculoskeletal: Denies: Back pain, Extremity Pain Skin: Denies: Rash, Wounds Neurological: Denies: Headache, Weakness, Numbness Physical Exam Vital Signs/Narrative: Vital Signs Temp Pulse Resp BP Pulse Ox 01/19/21 17:52 97.3 F L 65 17 128/85 H 98 Inital Vital Signs reviewed: Yes General: Well nourished, Well developed, No Acute Distress Head: Normocephalic, Atraumatic Eyes: Perrl, EOMI ENT: Moist mucous membranes, No rhinorrhea Neck: Supple, Nontender Cardiovascular: Regular rate, Regular rhythm, No murmurs Respiratory: No distress, CTA bilaterally, Chest nontender Abdomen: Soft, Nontender, Nondistended, Normal bowel sounds. Negative for: Guarding, Rebound tenderness, Lepe's sign Back: Nontender, Normal Inspection Extremities: Nontender, No edema Skin: Normal color, Rash - She does have a slight area of erythema over his right upper quadrant he states has been there for over a month. Is not painful. Neurological: Alert, Oriented x3, Cranial nerves II-XII grossly intact, Normal Strength, Normal Sensation Psychological: Normal affect, Normal Mood Diagnostic/Tx/Re-eval Chest X-Ray - ED: 1 View, Read by ED Physician, Read by Radiologist, No Acute Disease Clinical Impression(s) from Imaging Studies Abdomen/Pelvis CT 01/19/21 18:32 IMPRESSION: 1. Mild edema of the gallbladder wall without gallstones or inflammatory process. The etiology is uncertain. 2. 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 3. Interval biopsy of the prostate when compared to the previous study. 4. No other abnormality when compared to 10/17/2020. Electronically Signed: Supa Rios DO at 20:33 EDT Tel [phone], Service support , Chest X-Ray 01/19/21 19:44 IMPRESSION: No acute radiographic abnormalities. Electronically Signed: Collin Tilley MD at 20:12 EDT Tel , Service support , Gallbladder Ultrasound 01/19/21 20:38 IMPRESSION: Gallstones with mildly edematous thickened gallbladder wall. No evidence of acute cholecystitis. Electronically Signed: Supa iRos DO at 21:38 EDT Tel [phone], Service support , Laboratory Data 01/19/21 01/19/21 18:40 18:40 WBC 9.0 RBC 3.13 L Hgb 10.0 L Hct 30.8 L MCV 98.4 H MCH 31.9 MCHC 32.5 RDW Std Deviation 47.0 H RDW Coeff of Andrez 13.2 Plt Count 199 MPV 9.0 Immature Gran % (Auto) 0.200 Neut % (Auto) 81.9 H Lymph % (Auto) 6.2 L [place] % (Auto) 9.0 Eos % (Auto) 2.4 Baso % (Auto) 0.3 Absolute Neuts (auto) 7.4 Absolute Lymphs (auto) 0.56 L Nucleated RBC % 0 Differential Comment SCANNED Sodium 140 Potassium 4.9 Chloride 105 Carbon Dioxide 32.0 Anion Gap 3 L BUN 25 H Creatinine 1.59 H Estim Creat Clear Calc 35.80 Est GFR (MDRD) Af Amer 54 L Est GFR (MDRD) Non-Af 45 L BUN/Creatinine Ratio 15.7 Glucose 115 H Calcium 8.9 Total Bilirubin 0.50 Direct Bilirubin 0.28 AST 114 H ALT 94 H Alkaline Phosphatase 84 Troponin I < 0.015 Total Protein 6.9 Albumin 3.3 Globulin 3.6 Lipase 131 - Rhythm Strip Rhythm Strip: Sinus Rhythm Rate: 60 Ectopy: None - EKG Initial EKG Interpretation: Sinus Rhythm, - - Sinus rhythm rate of 60 Normal axis Normal intervals Normal ST segments - Medical Decision Making Patient evaluated for sudden onset of pain in his right upper quadrant. It has since improved significantly. He is well-appearing on my exam. He has negative Lepe sign. He did have vomiting prior to arrival. He ate pizza for lunch and his pain occurred about 30 minutes after that. Patient states he eats pizza a lot though and this is never happened to him before. Lab work is significant for mild transaminitis. This does appear to be acute. He also has a chronic elevation of his creatinine and had a chronic anemia which are unchanged. Lipase is normal. I do not suspect acute pancreatitis. Patient declines any pain medication in the ER. CT the abdomen pelvis obtained which shows some inflammation of the gallbladder but it is nonspecific. A right upper quadrant ultrasound obtained which shows all stones and a mildly edematous thickened gallbladder wall but no evidence of acute cholecystitis. Case is discussed with surgery on-call, Dr. Whittaker. Given that patient is resting comfortably, does not have a leukocytosis or other severe features consistent with acute cholecystitis she will follow-up in the office with him on Friday. Patient does have a 6 mm common bile duct but this is normal for his age. At this time we do not suspect choledocholithiasis. His contact information is relayed to her. Patient is discharged home with instructions to call the office on Friday. He is given a short course of Zofran to take as needed. He is counseled on avoiding fatty and greasy foods in the meantime. He is counseled that should his symptoms worsen that he might need to return to the emergency room. He verbalizes agreement understanding this plan. Patient discharged home in stable condition. ED Disposition - Plan for ED Patient: Disposition: Home or Assisted Living Diagnosis: Right upper quadrant abdominal pain, Gallstones Instructions: ED Gallstones with Biliary Colic Prescriptions: Ondansetron [Zofran Odt] 4 mg PO Q8H PRN PRN #10 tablet PRN Reason: Nausea Prescription Printed Referrals: Radha Whittaker MD [STAFF PHYSICIAN] - Additional Instructions: Call the surgeon, Dr. Whittaker on Friday to arrange close follow-up. Return the emergency room if you have worsening symptoms such as inability to eat, fever or worsening pain. Drink plenty of fluids and avoid fatty or greasy foods.
[2021-01-19 19:08] LABS: Absolute Lymphocyte Count 0.56 X10^3/uL (0.83-4.51); Absolute Neutrophil Count 7.4 X10^3/uL (2.0-7.7); Basophil# 0.03 X10^3/uL; Basophil% 0.3 % (0-1); Eosinophil# 0.22 X10^3/uL; Eosinophils% 2.4 % (0-5); Hematocrit 30.8 % (40-54); Lymphocyte # 0.56 X10^3/ul (0.83-4.51); Lymphocyte % 6.2 % (19-41); Mean Corp Hgb Conc 32.5 g/dL (32-36); Mean Corpuscular Hgb 31.9 pg (27.0-32.0); Mean Corpuscular Volume 98.4 fL (80-94); Monocyte# 0.81 X10^3/uL; NRBC Flagged by Analyzer 0 % (0-5); Neutrophil # 7.37 X10^3/uL (2.7-7.7); Neutrophil % 81.9 % (47-70); POSITIVE DIFFERENTIAL YES; Platelet Count 199 K/mm3 (150-450); RBC Distribution Width CV 13.2 % (11.6-14.6); Red Blood Count 3.13 M/mm3 (4.6-6.2)
[2021-01-19 19:32] LABS: Differential Indicated SCAN CRITERIA MET
--- NOTE | 2021-01-19 19:44 | RAD_ITS ---
INDICATION: chest pain EXAMINATION/TECHNIQUE: X-RAY - XR Chest 1 View COMPARISON: 02/09/2016. FINDINGS: Median sternotomy wires present. Multiple mediastinal clips. Again seen are bilateral lower lobe calcified granulomas. Left mid lung scarring. Tortuous and calcified thoracic aorta. The heart is not enlarged. No pleural effusion or pneumothorax. No acute osseous abnormalities. Degenerative changes of the thoracic spine. RAD/Chest 1 View (Portable) IMPRESSION: No acute radiographic abnormalities. Electronically Signed: Collin Tilley MD at 20:12 EDT Tel , Service support ,
[2021-01-19 19:47] LABS: AST(SGOT) 114 U/L (15-37); Alanine Aminotransfer ALT/SGPT 94 U/L (16-61); Albumin, Serum 3.3 g/dL (3.2-5.0); Alkaline Phosphatase 84 U/L (45-117); Anion Gap 3 (5-15); BUN 25 mg/dL (7-18); BUN/Creat Ratio 15.7 RATIO (10-20); Bilirubin, Direct 0.28 mg/dL (0.00-0.30); Calcium,Total 8.9 mg/dL (8.5-10.1); Chloride 105 mmol/L (98-107); Creatinine, Serum 1.59 mg/dL (0.70-1.30); EST Glomerular Filtration Rate 45 mL/min (>60); Est Glom Filt Rate - Afr Amer 54 mL/min (>60); Globulin 3.6 g/dL (2.2-4.2); Glucose 115 mg/dL (74-106); Lipase 131 U/L (73-393); Potassium 4.9 mmol/L (3.5-5.1); Protein, Total 6.9 g/dL (6.4-8.2); Sodium Level 140 mmol/L (136-145)
[2021-01-19 19:52] LABS: Differential Comment SCANNED
[2021-01-19 20:00] VITALS: BP 159/89; PULSE 61; RESP 16; O2SAT 98
--- NOTE | 2021-01-19 20:38 | US_ITS ---
STUDY: ABDOMINAL ULTRASOUND - RIGHT UPPER QUADRANT REASON FOR VISIT: Male, 80 years old abdominal pain. Transaminitis. TECHNIQUE: Ultrasound evaluation of the right upper quadrant was performed with real-time and static hampton-scale imaging. TECHNICAL QUALITY: Adequate. COMPARISON: CT of the abdomen and pelvis, 01/19/2021. FINDINGS: Liver: The liver measures 17.3 cm. There is normal echogenicity of the liver. The bile ducts are within normal limits. There is hepatic color flow. The direction of portal flow is hepatopetal. There is no demonstrated mass lesion. Gallbladder: Normal distended gallbladder. The the edematous gallbladder wall measures 3 mm. There is a negative sonographic Lepe''s sign. There is no pericholecystic fluid. There are several small echogenic foci consistent with small gallstones. Common Bile Duct (C.B.D.): The common bile duct measures 6 mm. Pancreas: Normal size of the head, body and tail of the pancreas. There is normal echogenicity of the pancreas. There is no demonstrated pancreatic mass or cyst. Right Kidney: Normal size of the right kidney. The right kidney measures 10.3 cm. Normal renal cortex. The right cortex measures 1.1 cm. There is no demonstrated renal mass or cyst. There is no right hydronephrosis. US/Gallbladder IMPRESSION: Gallstones with mildly edematous thickened gallbladder wall. No evidence of acute cholecystitis. Electronically Signed: Supa Rios DO at 21:38 EDT Tel [phone], Service support ,
[2021-01-19 22:06] VITALS: BP 148/81; PULSE 63; RESP 16; O2SAT 97
== END 2021-01-19 22:07 | disposition home or self-care (01) ==
PROVIDERS: Emergency Provider Emergency Medicine; PCP Internal Medicine
DX: K80.00 Calculus of gallbladder with acute cholecystitis without obstruction (principal); R10.11 Right upper quadrant pain; E78.5 Hyperlipidemia, unspecified; F31.9 Bipolar disorder, unspecified; G47.33 Obstructive sleep apnea (adult) (pediatric); I25.10 Atherosclerotic heart disease of native coronary artery without angina pectoris; J44.9 Chronic obstructive pulmonary disease, unspecified; N40.0 Benign prostatic hyperplasia without lower urinary tract symptoms; Z82.49 Family history of ischemic heart disease and other diseases of the circulatory system; Z85.46 Personal history of malignant neoplasm of prostate; Z87.891 Personal history of nicotine dependence; Z90.49 Acquired absence of other specified parts of digestive tract
CPT/HCPCS: 71045; 74177; 76705; 80048; 80076; 83690; 84484; 85025; 93005; 99283; Q9967; A4216

== ENCOUNTER → 2021-01-24 08:23 | Outpatient (CLI) | payer MEDICARE, OTHER, SELFPAY ==
[2021-01-19 17:52] VITALS: BMI 26.4
--- NOTE | 2021-01-22 17:10 | HP.PCM_ITS ---
History and Physical Date of Admission: 01/24/21 HISTORY AND PHYSICAL Froylan Vines 1940 REFERRING PHYSICIAN: Geovanna [place] John* CHIEF COMPLAINT: No chief complaint on file. HPI: The patient is a 80 year old male had presented to [facility] with complaint of RUQ and epigastric abdominal pain. He noted this pain for about one day onset and presented to [facility]. He denies previous abdominal pain. He is undergoing radiation treatment for prostate cancer. 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 He has known ventral hernias from his surgeries but no recent surgeries and the hernias have not been bothering him. He denies biliary obstructive signs/symptoms such as icterus and jaundice. Presently, he denies any abdominal pain. He denies fevers. CT scan (01/19/2021) - Normal liver. There is moderate abnormal edema of the gallbladder wall without gallstones or inflammatory process. There is no biliary ductal dilatation or choledocholithiasis. There are multiple benign calcified granulomata of the spleen. Normal pancreas US gallbladder (01/19/2021) Gallbladder: Normal distended gallbladder. The the edematous gallbladder wall measures 3 mm. There is a negative sonographic Lepe''s sign. There is no pericholecystic fluid. There are several small echogenic foci consistent with small gallstones. PAST MEDICAL HISTORY Diagnosis Date ? Bipolar 1 disorder (HCC) ? BPH (benign prostatic hyperplasia) ? CAD (coronary artery disease) ? COPD (chronic obstructive pulmonary disease) (HCC) ? Depression ? 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 Incarcerated left inguinal hernia 11/08/2016 ? Mild mitral valve regurgitation ? SHELDON (obstructive sleep apnea) PAST SURGICAL HISTORY Procedure Laterality Date ? APPENDECTOMY HX ? CABG, ARTERIAL, TWO 11/2019 ? CARDIAC CATHETERIZATION HX 09/20/2019 ? CATARACT EXTRACTION HX ? INSER NON-TUNNEL CVC >= 5 YR Left 01-25-16 ? REMVL COLON/TERM ILEUM/ILEOCOLOSTOMY 01-25-16 ? REPAIR INGUINAL HERNIA Left 11/08/2016 ? RPR 1ST INGUN HRNA AGE 5 YRS/> INCARCERATED 11/08/2016 Current Outpatient Medications Medication Sig ? therapeutic multivitamin (THERA VITAMIN) tablet Take 1 tablet by mouth daily with breakfast. ? lamoTRIgine (LAMICTAL) 200 mg tablet Take 1 tablet by mouth twice daily. ? metoprolol succinate ER (TOPROL XL) 25 mg 24 hr tablet TAKE 1 TABLET BY MOUTH TWICE DAILY. ? umeclidinium (INCRUSE ELLIPTA) 62.5 mcg/actuation inhaler Inhale 1 Puff as instructed once daily. ? atorvastatin (LIPITOR) 40 mg tablet Take 40 mg by mouth once daily. ? SYMBICORT 160-4.5 mcg/actuation inhaler 2 Puffs twice daily. ? tamsulosin ER (FLOMAX) 0.4 mg cp24 daily at bedtime. ? buPROPion XL (WELLBUTRIN XL) 150 mg 24 hr tablet once daily. ? pantoprazole DR (PROTONIX) 20 mg tablet TAKE ONE TABLET BY MOUTH DAILY AT 6AM. ? amiodarone (PACERONE) 200 mg tablet TAKE 1 TABLET BY MOUTH TWICE A DAY FOR 2 WEEKS THEN REDUCE TO 1 TABLET DAILY. ? furosemide (LASIX) 20 mg tablet TAKE 1 TABLET BY MOUTH EVERY OTHER DAY FOR 10 DAYS THEN STOP ? aspirin, enteric coated (ASPIRIN, ENTERIC COATED) 81 mg EC tablet Take 1 tablet by mouth once daily. ? albuterol HFA (VENTOLIN HFA) 90 mcg/actuation inhaler Inhale 2 Puffs as instructed every 4 hours as needed for Wheezing/Shortness of Breath. ? ferrous sulfate 325 mg (65 mg iron) EC tablet Take 325 mg by mouth daily with breakfast. 12-02-2019: on hold for past 7 days. ALLERGIES: Patient has no known allergies. PERSONAL HISTORY: Social History Tobacco Use ? Smoking status: Former Smoker Quit date: 09/15/2013 Years since quittin.3 ? Smokeless tobacco: Never Used Vaping Use ? Vaping Use: Never used Substance Use Topics ? Alcohol use: Yes Comment: rare ? Drug use: No FAMILY HISTORY Problem Relation Age of Onset ? Heart Mother mi ( of SCD at 79) ? Heart Father mi ( of SCD 75) ? COPD Father ? Heart Brother [place] s/p PCI The review of systems data was entered by the nurse and reviewed by tn Nursing Notes: Segundo You LPN 01/22/2021 3:40 PM Signed REVIEW OF SYSTEMS: General: The patient denies fatigue, denies weight loss, denies weight gain, denies feeling hot, and denies feelings of cold. Eyes: The patient denies glaucoma, NOTES eye injury/surgery, wears glasses or contacts. Ear/Nose/Throat: The patient denies allergies, denies hayfever, denies ear infections, and denies bloody noses. Cardiovascular: The patient NOTES chest pain, NOTES heart disease, denies high blood pressure,denies cardiac stent, denies prior heart attack, NOTES irregular heart beat, NOTES high cholesterol, denies poor circulation, denies heart failure, other cardiac issues, denies claudication, denies cold feet, denies peripheral arterial stent. Respiratory: The patient denies tuberculosis, denies pneumonia, denies frequent cough, denies pulmonary embolism, NOTES shortness of breath, and denies coughing up blood. Gastrointestinal: The patient denies difficulty swallowing, denies acid reflux, denies ulcers, denies vomiting, denies jaundice/hepatitis, NOTES gallbladder problems, denies black or tarry stools, denies hemorrhoids, denies bleeding from rectum, denies diverticulitis, denies constipation, denies diarrhea, denies loss of stool control, and NOTES hernias. Kidney/Bladder: The patient denies kidney stones, denies urine infections, and denies bloody urine. Skin: The patient denies a history of skin cancer, denies bleeding/changing moles, and denies a history of skin rash. Neurologic: The patient denies a history of epilepsy/convulsions, denies headaches, denies head/spinal injuries, and denies stroke/TIA. Psychiatric: The patient NOTES psychiatric medications, denies depression, and denies voices, denies substance abuse. Endocrine: The patient denies thyroid disorders, denies diabetes, and denies hormonal problems. Hematologic: The patient denies a history of bruising, denies bleeding, and denies anemia, denies blood clots. Infections: The patient denies a history of measles and mumps, denies rheumatic fever, and denies sexually transmitted diseases. Musculoskeletal: The patient denies back pain/injury, denies back problems, denies sciatica, denies knee/foot trouble, denies arthritis, or denies gout. When was patient's last Mammogram screening? N/A Last Colonoscopy: N/A Segundo You LPN PHYSICAL EXAMINATION: General: The patient is 80 year old male, well nourished, well hydrated in no acute distress. The patient is oriented to time, place, and person. VITALS: Pulse 94, temperature 36.4 ?C (97.5 ?F), height 172.7 cm (5' 8), weight 76.7 kg (169 lb), SpO2 94 %. Body mass index is 25.7 kg/m?. Head ? Normocephalic. EOM intact with sclera clear and no icterus noted. Mouth with mucus membranes moist. Neck - supple with no jugular venous distention noted. Trachea is midline. Lungs ? clear to auscultation. Normal breath sounds. No rales/rhonchi/wheezing noted. No labored breathing noted, such as retractions. No cough heard. Heart ? normal S1 and S2 auscultated. No rubs/clicks/murmurs noted. Regular rate. Abdomen ? soft and benign. Possible ventral hernia superior to umbilicus at midline incisional siteNormal bowel sounds.. Extremities ? no calf tenderness noted. No pitting edema noted. Skin ? normal skin integrity. Neurological ? gait normal, no focal deficits noted. Psych ? calm and appropriate RADIOLOGIC STUDIES: As Noted IMPRESSION: cholelithiasis with thickened gallbladder wall PLAN: I have discussed the above with the patient and his who is present with him. I have offered laparoscopic cholecystectomy, possible cholangiograms I have explained the procedure to the patient. I have counseled the patient as to the risks of the procedure, including but not limited to: infection, bleeding, injury to any blood vessels/nerves, scar tissue, injury to any intrabdominal organs, injury to bowel/bladder, injury to the common bile duct/biliary tree, bile leakage, intraabdominal abscess/bleeding, hernias at incisional sites, possible open procedure, wound infections, complications of anesthesia, etc. ? the patient understands. The patient was offered a surgery/procedure. The provider and patient have discussed in detail the risk of exposure to and/or potential harm posed by the COVID-19 virus with having a surgery/procedure at this time versus the risk of delaying the surgery/procedure. It is not possible to know either the risk of delaying the surgery or procedure or chance of getting an infection with perfect accuracy, but a joint decision was made between the patient and the provider to proceed at this time with the scheduled surgery/procedure. The patient wishes to proceed. I have answered all questions to the patient?s satisfaction and the patient has no further questions. . Diagnoses: (K80.20) Calculus of gallbladder without cholecystitis without obstruction (primary encounter diagnosis) Return to Clinic: The patient is instructed to follow-up with me after the procedure
[2021-01-24 13:22] VITALS: BP 106/45; PULSE 64; RESP 18; TEMP 36.6; O2SAT 89; BMI 25.4
[2021-01-24 13:34] LABS: International Normalized Ratio 1.1; Prothrombin Time (Protime)PT. 13.3 SECONDS (11.7-14.9)
[2021-01-24 13:35] LABS: Partial Thromboplast Time 22.4 Seconds (24.1-36.2)
[2021-01-24] MEDS: Lactated Ringers 1,000 ML 100 ML IV (13:37)
[2021-01-24 13:38] LABS: AST(SGOT) 27 U/L (15-37); Alanine Aminotransfer ALT/SGPT 56 U/L (16-61); Albumin, Serum 3.4 g/dL (3.2-5.0); Alkaline Phosphatase 76 U/L (45-117); Bilirubin, Direct 0.17 mg/dL (0.00-0.30); Globulin 3.7 g/dL (2.2-4.2); Protein, Total 7.1 g/dL (6.4-8.2)
[2021-01-24 14:18] VITALS: PULSE 39; RESP 16
[2021-01-24] MEDS: Ipratropium/Albuterol Sulfate 3 ML AMPUL.NEB INHALATION (14:18)
== END ==
LOC: AC 14:36 → PAT 02-16 08:25
PROVIDERS: Anesthesiology; PCP Internal Medicine; Referring Provider Surgery; Visit Provider Surgery
DX: K80.20 Calculus of gallbladder without cholecystitis without obstruction (principal); Z53.09 Procedure and treatment not carried out because of other contraindication; Z91.19 Patient's noncompliance with other medical treatment and regimen; G47.33 Obstructive sleep apnea (adult) (pediatric); R10.11 Right upper quadrant pain
CPT/HCPCS: 80076; 85610; 85730; 94640; J7120

== ENCOUNTER → 2021-03-27 13:31 | Outpatient (CLI) | payer MEDICARE, OTHER, SELFPAY ==
[2021-03-19 06:44] VITALS: BMI 25.2
[2021-03-27 13:45] VITALS: PULSE 110; PULSE 112; PULSE 113; PULSE 127; PULSE 128; PULSE 130; O2SAT 93; O2SAT 94; O2SAT 95; O2SAT 96; O2SAT 98
--- NOTE | 2021-03-28 09:46 | PCM.PSN.6M ---
PSN 6 Minute Walk Test 6 Minute Walk Test 6 Minute Walk Test: 6 Minute Walk Test PSN:6-Minute Walk Test Start: 03/27/21 13:51 Freq: Status: Active Protocol: [id number].6MINW Document 03/27/21 13:45 HJ (Rec: 03/27/21 13:56 [id number]) 6 Minute Walk Test Date Performed 03/27/21 Time Performed 13:45 Height 5 ft 8 in Weight: 165 lb Weight in Pounds 165.[address]: Godwin Vines FIO2 (% Oxygen) 21 Assistive device used: None Pre-test Oxygen Delivery Method Room Air Pulse Ox (%) 96 Pulse Rate (60-100 beats/min) 110 H Dyspnea Natalee Scale (0-10) 0 Exertion Natalee Scale (6-20) 6 1st minute Oxygen Delivery Method Room Air Pulse Ox (%) 93 Pulse Rate (60-100 beats/min) 112 H 2nd minute Oxygen Delivery Method Room Air Pulse Ox (%) 93 Pulse Rate (60-100 beats/min) 113 H 3rd minute Oxygen Delivery Method Room Air Pulse Ox (%) 95 Pulse Rate (60-100 beats/min) 113 H 4th minute Oxygen Delivery Method Room Air Pulse Ox (%) 94 Pulse Rate (60-100 beats/min) 127 H 5th minute Oxygen Delivery Method Room Air Pulse Ox (%) 96 Pulse Rate (60-100 beats/min) 128 H 6th minute Oxygen Delivery Method Room Air Pulse Ox (%) 96 Pulse Rate (60-100 beats/min) 130 H Post-test Oxygen Delivery Method Room Air Pulse Ox (%) 98 Pulse Rate (60-100 beats/min) 128 H Dyspnea Natalee Scale (0-10) 2 Exertion Natalee Scale (6-20) 13 Full Laps Walked 18 Partial Lap, Number of Tiles Walked 0 Total Distance Walked (ft) 1062 Interpretation Interpretation: The patient ambulated 1062 feet over the course of 6 minutes beginning on room air without assistive devices. Pretesting oxygen saturation was noted to be 96% on room air. With ambulation, the nupur oxygen saturation was 93%. There was no significant exertional oxygen desaturation. Recommendations Recommendations: There is no indication for the use of supplemental oxygen at this time.
== END ==
PROVIDERS: PCP Internal Medicine; Referring Provider Internal Medicine Critical Care Medicine; Visit Provider Internal Medicine Critical Care Medicine
DX: J44.9 Chronic obstructive pulmonary disease, unspecified (principal)
CPT/HCPCS: 94618

== ENCOUNTER → 2021-04-17 09:31 | Outpatient (CLI) | payer MEDICARE, OTHER, SELFPAY ==
[2021-03-19 06:44] VITALS: BMI 25.2
--- NOTE | 2021-04-17 09:37 | PR.HP_ITS ---
History of Present Illness Arrival date:: 04/17/21 Arrival time:: 09:30 Date of Referral:: 03/19/21 Date of Evaluation: 04/17/21 Referring Physician: Dr. Godwin Vines Primary Diagnosis: COPD GOLD III: Severe History of Present Illness: The patient has known severe obstructive pulmonary disease and is currently on maximum triple therapy inhaler regimen with symbicort, Incruse, and as needed albuterol. mMRC Breathless Scale: When is the patient short of breath? Y/N Grade: Description of Breathlessness: 0 I only get breathless with strenuous exercise. 1 I get short of breath when hurrying on level ground or walking up a slight hill. 2 On level ground, I walk slower than people of the same age because of breathless, or have to stop for breath when walking at my own pace. 3 I stop for breath after walking 100 yards or after a few minutes on level ground. 4 I am too breathless to leave the house or I am breathless when dressing. Respiratory Problems: Yes: Retain Secretions, Fatigue, Wheezing, Able to Speak in Full Sentences, Dyspnea with Activity No: Dyspnea Lying Down Flat, Cough with Secretions - Secretions Cough:: No A.T.C.: No Hx of Sleep Apnea: Yes Do you snore loudly (louder than talking or can be heard through closed doors)?: Yes Do you often feel tired/ fatigued/ sleepy during daytime?: Yes History of Hypertension (for STOP score): Yes - patient is currently noncompliant with the use of CPAP. Home Medications: Home Medications tamsulosin 0.4 mg PO DAILY 01/25/16 multivitamin 1 cap PO DAILY 05/10/20 albuterol sulfate 2.5 mg INHALATION Q4H PRN #180 ml 05/24/20 aspirin 81 mg tablet,delayed release 81 mg PO DAILY 05/24/20 bupropion HCl 150 mg 24 hr tablet, extended release 150 mg PO DAILY #90 tab 05/24/20 metoprolol succinate 25 mg tablet,extended release 24 hr 25 mg PO BID tab 06/28/20 budesonide-formoterol HFA 160 mcg-4.5 mcg/actuation aerosol inhaler 2 puff INHALATION BID #10.2 g 11/22/20 acetaminophen 325 mg capsule 325 mg PO ONCE PRN 03/29/21 atorvastatin 40 mg PO QHS 01/19/21 lamotrigine 200 mg PO BID 01/19/21 ondansetron 4 mg PO Q8H PRN PRN #10 tablet 01/19/21 albuterol sulfate 1 - 2 puff INHALATION Q6H PRN PRN 01/22/21 Incruse Ellipta 62.5 mcg/actuation powder for inhalation 1 inh INHALATION DAILY #30 ea NS 03/29/21 Allergies/Adverse Reactions: Allergies No Known Allergies Allergy (Verified 03/19/21 13:35) Medical Utilization Do you use a peak flow meter at home?: No Do you use a spacer device with your inhalers?: No Number of hospital visits in the last year?: 0 Number of emergency room visits in the last year?: 0 Do you see your physician on a regular schedule?: No Advanced Directives - Advanced Directives Power of Dementia Program Director: Yes Living Will: Yes Advance Directives Information Provided: No Advance Directives on File: No DNR Order?:: No - MOLST See MOLST form: No Past Medical History - Covid-19 Screening Fever: No Unexplained muscle aches: No Current respiratory symptoms: Yes - Severe COPD usually always short of breath with activities. Upper respiratory infections symptoms: No Gastro-intestinal symptoms: No Ikf-Svib-Vftcoo symptoms: No Has tested positive for COVID-19 in last 30 days: No Date of testin04/17/21 - Patient has already received the COVID vaccine Had contact w/person w/symptoms or Covid-19 (+) last 14 days: No 65 years or older:: Yes Lives in Assisted Living facility:: No Has a chronic lung disease or moderate to severe asthma:: Yes Has a serious heart condition:: Yes Immunocompromised:: No Severely obese (Body Mass Index of 40 or higher):: No Diabetic:: No Medical History: Past Medical History (Last Reviewed 03/19/21 @ 13:35 by Gissel Queen) Bipolar disorder F31.9 BPH (benign prostatic hyperplasia) N40.0 COPD (chronic obstructive pulmonary disease) J44.9 Degeneration of cervical intervertebral disc M50.30 Depressive disorder F32.9 Diarrhea R19.7 Emphysema, unspecified J43.9 History of alcohol abuse F10.11 History of prostate cancer Z85.46 Hyperlipidemia E78.5 Hypocalcemia E83.51 Hypoxemia R09.02 Impotence of organic origin N52.9 Macrocytic anemia D53.9 Malignant neoplasm of skin C44.90 Neck pain M54.2 Nonallopathic lesion of sacroiliac region M99.9 SHELDON (obstructive sleep apnea) G47.33 Sciatica M54.30 Sleep disorder breathing G47.30 Tobacco dependence in remission F17.201 Vertigo R42 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 Surgical History: Past Surgical History (Last Reviewed 03/19/21 @ 13:35 by Gissel Queen) H/O hemicolectomy Z90.49 2016 History of appendectomy Z90.49 History of colonoscopy Z98.890 History of left inguinal hernia repair Z98.890, Z87.19 History of open heart surgery Z98.890 12/07/19, double valve bypass Status post right colectomy Family History: Family History (Last Reviewed 03/19/21 @ 13:35 by Gissel Queen) Father Emphysema, unspecified Heart disease Mother Kidney disease Heart disease Brother Heart disease - Current/ Previous Services Pulmonary Rehab:: No Social History - Smoking History Smoking Status: Former smoker Hx Smoking Cessation Date: 08/29/13 Hx Tobacco Use: Yes Hx Smoking Exposure: No - Alcohol Use Alcohol Usage: Yes - very little; once is a great while - Substance Abuse Hx Substance Use: No - Occupation Occupation (List type of work in comments):: Retired - Hobbies, Recreation, Social Activities Hobbies: Other - [employer] cars ori[employer] Recreational Activities: I am able to engage in most, but not all activities, I can hardly do any recreational activities Functioning ADL/IADL - Current Ability Current Ability: Independent Self-Care (e.g.,grooming, dressing, & bathing), Independent Ambulation, Independent Transfer, Independent Household tasks (e.g., light meal prep, laundry, shopping) - Pt Functioning Prior to Problem Prior Functioning: Self-Care (e.g.,grooming, dressing, & bathing): Independent, Ambulation: Independent, Transfer: Independent, Household tasks (e.g., light meal prep, laundry, shopping): Independent Social Environment - Status Marital Status: - 2 - Current Living Arrangements Living Environment:: Spouse - Children How many children do you have?: 2 - 3 Do any of your children live nearby?: Yes - son still lives at home, and daughter in [place] - Safety Do you feel safe in your surroundings?: Yes - Assistance Do you need any assistance at home?: none Review of Systems Review of Systems: Right click = Denies (Slash). Left click = Reports ([place]) Respiratory: Reports: SOB upon Exertion, Wheezing, Appetite, Normal, Fatigue, Sleep, Normal. Denies: Cough, Hemoptysis, Pleuritic Pain, SOB at Rest, Sputum p roduction, Dizziness/Lightheadedness Is Patient Pain Free?: Yes Pain Location: none Pain Level: 0/10 Risk Factor Assessment - Chief Complaint Chief Complaint: COPD GOLD III: Severe - Vital Signs Temperature: 97.5 F Pulse Rate: 67 Pulse Rhythm: Regular Respiratory Rate: 18 Pulse Ox: 94 Blood Pressure: 101/62 - Diabetes Nutrition Referral for Diabetes: No - Obesity Height: 5 ft 8 in Weight:: 166 lb Weight in Pounds: 166.0 lbs Weight Source: Standing Scale Body Mass Index (BMI): 25.2 Nutritional Referral for Obesity: No - Physical Activity Physical Inactivity: None - Risk Stratification Risk Guidelines: Lowest Risk: Risk Factor for Smoking, Risk Factor for Dyslipidemia, Risk Factor for Diabetes, Risk Factor for Obesity, Risk Factor for Hypertension, Moderate Risk: Risk Factor for Depression, Highest Risk: Risk Factor for Sedentary Lifestyle Motivation - Motivation to Participate On a scale of 1 to 10, how prepared are you to commit to attending program?: 7 What do you see as barriers to successfully being able to complete the program?: I think I can do it; none. What do you see as the benefits of succesfully completing the program? In other words, what do you hope to get out of participating in the program?: Healthier, breathe easier, more motivation to do things. Are there issues you are dealing with that will interfere with completing the program?: none Do you have a spouse or signficant other, family or friends who will help support you to complete the program?: yes. Diagnostic Data Review - Pulmonary Function Test FEV1:: 1.34 - 48% predicted FVC:: 2.63 - 68% predicted FEV1/FVC%:: 51 Gold Classification: GOLD class III(severe COPD)with FEV1/FVC<70, 30%</=FEV1< 50% predicted
--- NOTE | 2021-04-17 09:37 | PCM.PR.TP ---
General Information - General Information Admitting Diagnosis: Chronic Obstructive Pulmonary Disease (COPD) Gold Classification:: GOLD 3: Severe Special Needs: Depression, Bipolar Disorder - Education/Goals Barriers to Learning: Hearing Impairment, Vision Impairment Individual Counseling: Initial Assessment: Dyspnea control techniques at rest, activity, and ADLs, Inhaled and respiratory medications, ADL management and pacing, Panic & depression management, Home exercise plan & guidelines Patient Goals: Breathe better: Initial Assessment, Increase endurance/stamina: Initial Assessment Exercise - Initial Assessment - Visit Date of Eval: 04/17/21 - Problem/Goals Problems: Deconditioning, No regular exercise, Knowledge deficit exercise guidelines, Knowledge deficit exercise safety Goals:: MO: 2-3/wk - Physician Prescribed Exercise Modalities: Treadmill, Airdyne, NuStep Frequency (days/week): 3 Duration (Minutes):: 30-45 Intensity: 60-80% of age predicted maximum heart rate reserve METs - Progression: 0.5-1.0 MET, RPE 11-14 WEEK: 2.5 Target Heart Rate:: 92-120 - Plan Plan and Plan to Review:: Benefits of exercise, Core components of exercise, How to measure dyspnea level, How to monitor dyspnea level, Exercise intensity, Exercise safety guideline, Home exercise guidelines, Natalee: 3-4/-13 Disease Management - Initial - Problems/Goals-Hypoxemia Hypoxemia Goals:: Hypoxemia managed, Using O2 as Rx's safely - Problems/Goals-Medications Medication Problems:: Medication non-adherence Medication Goals: Adherence to prescribed medications, Correct technique/timing & care of MDI, DPI, nebulizer, and spacer. - Problems/Goals-Bronchial Hygiene Bronchial Hygiene Problems:: Respiratory infection Prevention/Management Bronchial Hygiene Goals:: Pt describes signs and symptoms of infection. - Initial Assessment SpO2:: 94 - room air FiO2:: 21 Does pt report taking home meds as prescribed?: Yes Medications: Yes MDI, Yes DPI, Yes NEB, Yes Spacer - Plans Hypoxemia Plan:: Monitor SpO2 rest & with exercise, Train appropriate O2 use with exercise, Train O2 safety & systems Reviewed prescribed medications:: Purpose, Schedule, Side effects, Importance of compliance Instruct correct technique/timing & care:: MDI, DPI, Nebulizer, Return demo use of inhaler Bronchial Hygiene Plan: Controlled cough, Vibratory PEP device, Hydration, Hand hygiene, When to call MD Psychosocial - Initial Assess - Problems/Goals Problems: Depression, Ineffective coping - BiPolar Disorder, Impaired Q.O.L. Psychosocial Goals: Improved psychosocial coping skills., Verbalizes coping strategies., Adequate treatment of depression., Improved Q.O.L. - Psychosocial Test Depression:: Self report, Impaired QOL Tests Completed: Mood Scale Test - Plan Reviewed screening results: Yes Instructions given regarding:: Benefits of exercise, Relaxation techniques, Training in coping strategies Stress management: On meds currently, Receiving counseling Tobacco - Initial Assessment - Stage of Change Stages of Change:: Action - Learning Barriers Learning Barriers: Hearing, Vision, Ready to Learn - Family Support Do you have family support?: Yes - Tobacco Use Tobacco Use: Non-smoker Years Smokin Do you use smokeless tobacco?: No - Intervention Smoking Cessation Referral:: No Individual Education/Counseling:: No Education Schedule Given:: Yes - Education Gave Education Materials For:: Pulmonary Disease, Risk Factors, Breathing Techniques, Medical Compliance, Pulmonary A&P, Exacerbation Signs & Symptoms, Stress & Relaxation Tobacco - 30-Day Assessment Tobacco - 60-Day Assessment Tobacco - 90-Day Assessment Tobacco - Final Assessment Nutrition/Wt Mgmt - Initial - Problems/Goals Goals: BMI 21-25 - Diabetes Diabetes:: No - Intervention Referral to dietitian:: No Referral to Diabetic Clinic:: No Will attend diet classes:: Yes - Plan Nutrition Plan: Yes Review BMI or WC & identify target wt & strategies for wt control Patient Health Questionnaire Initial Assessment 1. Little interest or pleasure in doing things: Not at all 2. Feeling down, depressed, or hopeless: Several days 3. Trouble falling or staying asleep, or sleeping too much: Not at all 4. Feeling tired or having little energy: Several days 5. Poor appetite or overeating: Not at all 6. Feeling bad about yourself -- or that you are a failure or have let yourself or your family down: Several days 7. Trouble concentrating on things, such as reading the newspaper or watching television: Not at all 8. Moving or speaking so slowly that other people could have noticed. Or the opposite - being so fidgety or restless that you have been moving around a lot more than usual: Not at all 9. Thoughts that you would be better off , or of hurting yourself in some way: Not at all How difficult have these problems made it for you to do your work, take care of things at home, or get along with other people?: Not difficult at all Total Score: 3 COPD Knowledge Test Initial COPD is a lung disease that:: Makes it hard to breathe & gets worse over time In the [place] the term COPD describes 2 main lung conditions:: Emphysema & chronic bronchitis The most common lung irritant that causes COPD is:: Cigarette smoke Common signs and symptoms of COPD include:: An ongoing cough/cough that produces a large amount of mucus, & SOB If you have COPD, what steps can you take?: Follow your treatment plan for COPD exactly as your doctor prescribes Swelling of the ankles is common in COPD:: True Fatigue [tiredness] is common in COPD:: True Wheezing is common in COPD:: True Crushing chest pain is common in COPD:: True Rapid weight loss is common in COPD:: True Breathlessness is a normal response to exercise: True Exercise should be avoided if it makes you short of breath: True All bronchodilators act within 10 minutes: True A spacer device increases the medication to the lungs: True Annual flu vaccine is recommended for pts w/lung disease: True COPD Knowledge Test Total Score:: 9 COPD Assessment Test [CAT] - Questions Never cough = 0, Cough all the time = 5: 3 No phlegm = 0, Chest full of phlegm = 5: 1 No chest tightness = 0, Chest very tight = 5: 2 No breathless w/exertion = 0, Very breathless w/exertion = 5: 3 No limitations w/activity = 0, Very limited w/activity = 5: 2 Confident leaving home = 0, Not at all confident = 5: 2 Sleep soundly = 0, Don't sleep soundly = 5: 2 Lots of energy = 0, No energy at all = 5: 3 Total CAT score:: 18 Self-Efficacy Initial Assessment We would like to know how confident you are in doing certain activities. Please select your confidence level for:: Select your confidence level for the following using the scale 1-10 where 1 is not at all confident and 10 is totally confident. Your score is the average of all 6 responses. Fatigue: How confident are you that you can keep the fatigue caused by your disease from interfering with the things you want to do? Select Number: 8 Physical Discomfort or Pain: How confident are you that you can keep the physical discomfort or pain of your disease from interfering with the things you want to do? Select Number: 7 Emotional Distress: How confident are you that you can keep the emotional distress caused by your disease from interfering with the things you want to do? Select Number: 7 Other Symptoms or Health Problems: How confident are you that you can keep other symptoms or health problems from interfering with the things you want to do? Select Number: 8 Different Tasks and Activities: How confident are you that you can do the different tasks and activities needed to manage your health condition so as to reduce your need to see a doctor? Select Number: 8 Medication: How confident are you that you can do things other than just taking medication to reduce how much your illness affects your everyday life? Select Number: 7 Total Score:: 7 Nutrition Survey - Nutrition Survey Initial Have you lost >10 lbs over the past 2 months without trying?: No Are you following a special diet at home for diabetes, low fat, or low salt?: No Are you interested in meeting with a dietitian for help understanding your diet?: No Do you eat less than 3 meals a day?: Yes Do you eat fatty meats (nation, sausage, ribs, etc), fried foods, desserts, large amounts of salad dressings, margarine, butter, or cheese most days?: Yes Do you have food allergies? [Enter types in comment field]: No Do you eat in restaurants more than 3 times a week?: No Do you season food with salt, seasoning salt, or garlic salt?: Yes Do you used canned, boxed, frozen meals, or soups, seasoning packets?: No Total Score:: 3
[2021-04-17 10:23] VITALS: O2SAT 94
[2021-04-17 10:32] VITALS: BP 101/62; PULSE 67; RESP 18; TEMP 36.4; O2SAT 94; BMI 25.2
== END ==
PROVIDERS: PCP Internal Medicine; Referring Provider Internal Medicine Critical Care Medicine; Visit Provider Internal Medicine Critical Care Medicine
DX: J44.9 Chronic obstructive pulmonary disease, unspecified (principal)

== ENCOUNTER 2021-04-27 09:30 | Outpatient (RCR) | payer MEDICARE, OTHER, SELFPAY ==
[2021-04-17 10:32] VITALS: BMI 25.2
== END 2021-04-28 23:59 ==
LOC: PR 09:30
PROVIDERS: PCP Internal Medicine; Referring Provider Internal Medicine Critical Care Medicine; Visit Provider Internal Medicine Critical Care Medicine
DX: J44.9 Chronic obstructive pulmonary disease, unspecified (principal)
CPT/HCPCS: 97150; G0424

== ENCOUNTER 2021-05-28 09:30 | Outpatient (RCR) | payer MEDICARE, OTHER, SELFPAY ==
[2021-04-17 10:32] VITALS: BMI 25.2
--- NOTE | 2021-05-18 08:19 | PCM.PR.TP ---
Exercise - 30-Day Assessment - Physician Prescribed Exercise Modalities: Treadmill, Airdyne, NuStep Frequency (days/week): 3 - M,W,F Duration (Minutes):: 30-45 Intensity: 60-80% of age predicted maximum heart rate reserve Aerobic Exercise [30-60 min 3-7x/week]:: Progressing Target heart rate: 92-120 Natalee METs - Progression: 0.5-1.0 MET, RPE 11-14 WEEK: 3.0 - unchanged D/T arrythmias Disease Management - 30-Day - Hypoxemia Reassessment: Demonstrates knowledge of O2 Rx with exercise - Medications Medication list reviewed:: Yes Taking medications 100% of the time:: Approximately 75% of the time Medication reassessment: Yes Pt demonstrates correct technique timing for MDI, Yes Pt demonstrates correct technique timing for DPI, Yes Pt demonstrates correct technique timing for NEB, Yes Pt demonstrates correct technique timing for spacer - Bronchial Hygiene Bronchial Hygiene Plan: Yes Pt demonstrates correctly for effective cough, Yes Pt demo correct for improved hydration, Yes Pt demo correct for hand hygiene, Reinstructed Pt demo correct for device Psychosocial - 30-Day - Assessment Reassessment: Management of stress & depression, Practicing interventions, Demonstrate coping strategies, Geriatric depression screening, Self efficacy score Tobacco - Initial Assessment Tobacco - 30-Day Assessment - Stage of Change Stages of Change:: Action - Learning Barriers Learning Barriers: Participates in education - Family Support Do you have family support?: Yes - Tobacco Use Tobacco Use: Non-smoker Do you use smokeless tobacco?: No - Intervention Education Schedule Given:: Yes - Education Gave Education Materials For:: Pulmonary Disease, Risk Factors, Breathing Techniques, Medical Compliance, Pulmonary A&P, Exacerbation Signs & Symptoms, Stress & Relaxation Tobacco - 60-Day Assessment Tobacco - 90-Day Assessment Tobacco - Final Assessment Nutrition/Wt Mgmt - 30-Day - Weight Management Weight Assessment:: BMI 21 to 25 Weight:: 168 lb - BMI 25.2 Weight Goals Progress:: Goal met Patient Health Questionnaire 30-Day Re-eval Assessment 1. Little interest or pleasure in doing things: Not at all 2. Feeling down, depressed, or hopeless: Several days 3. Trouble falling or staying asleep, or sleeping too much: Not at all 4. Feeling tired or having little energy: Several days 5. Poor appetite or overeating: Not at all 6. Feeling bad about yourself -- or that you are a failure or have let yourself or your family down: Several days 7. Trouble concentrating on things, such as reading the newspaper or watching television: Not at all 8. Moving or speaking so slowly that other people could have noticed. Or the opposite - being so fidgety or restless that you have been moving around a lot more than usual: Not at all 9. Thoughts that you would be better off , or of hurting yourself in some way: Not at all How difficult have these problems made it for you to do your work, take care of things at home, or get along with other people?: Not difficult at all Total Score: 3 COPD Assessment Test [CAT] - Questions Never cough = 0, Cough all the time = 5: 3 No phlegm = 0, Chest full of phlegm = 5: 1 No chest tightness = 0, Chest very tight = 5: 2 No breathless w/exertion = 0, Very breathless w/exertion = 5: 3 No limitations w/activity = 0, Very limited w/activity = 5: 2 Confident leaving home = 0, Not at all confident = 5: 2 Sleep soundly = 0, Don't sleep soundly = 5: 2 Lots of energy = 0, No energy at all = 5: 3 Total CAT score:: 18 Self-Efficacy 30-Day Re-eval Assessment We would like to know how confident you are in doing certain activities. Please select your confidence level for:: Select your confidence level for the following using the scale 1-10 where 1 is not at all confident and 10 is totally confident. Your score is the average of all 6 responses. Fatigue: How confident are you that you can keep the fatigue caused by your disease from interfering with the things you want to do? Select Number: 8 Physical Discomfort or Pain: How confident are you that you can keep the physical discomfort or pain of your disease from interfering with the things you want to do? Select Number: 7 Emotional Distress: How confident are you that you can keep the emotional distress caused by your disease from interfering with the things you want to do? Select Number: 7 Other Symptoms or Health Problems: How confident are you that you can keep other symptoms or health problems from interfering with the things you want to do? Select Number: 8 Different Tasks and Activities: How confident are you that you can do the different tasks and activities needed to manage your health condition so as to reduce your need to see a doctor? Select Number: 8 Medication: How confident are you that you can do things other than just taking medication to reduce how much your illness affects your everyday life? Select Number: 7 Total Score:: 7 Nutrition Survey
== END 2021-05-29 23:59 ==
LOC: PR 09:30
PROVIDERS: PCP Internal Medicine; Referring Provider Internal Medicine Critical Care Medicine; Visit Provider Internal Medicine Critical Care Medicine
DX: J44.9 Chronic obstructive pulmonary disease, unspecified (principal)
CPT/HCPCS: 97150; G0424

== ENCOUNTER 2021-06-27 09:30 | Outpatient (RCR) | payer MEDICARE, OTHER, SELFPAY ==
[2021-05-30 00:41] VITALS: BMI 25.2
--- NOTE | 2021-06-18 08:13 | PCM.PR.TP ---
Exercise - 60-Day Assessment - Physician Prescribed Exercise Modalities: Treadmill, Airdyne, NuStep Frequency (days/week): 3 Duration (Minutes):: 35-40 Intensity: 60-80% of age predicted maximum heart rate reserve Aerobic Exercise [30-60 min 3-7x/week]:: Progressing Target heart rate: 92-120 Natalee METs - Progression: 0.5-1.0 MET, RPE 11-14 WEEK: 3.0 - unchanged - Home Exercise Home Exercise:: No Disease Management - 60-Day - Hypoxemia Reassessment: Demonstrates knowledge of O2 Rx with exercise - Medications Medication list reviewed:: Yes Taking medications 100% of the time:: Approximately 75% of the time - aided by his Medication reassessment: Yes Pt demonstrates correct technique timing for MDI, Yes Pt demonstrates correct technique timing for NEB, Reinstructed Pt demonstrates correct technique timing for spacer - Bronchial Hygiene Bronchial Hygiene Plan: Reinstructed Pt demo correct for improved hydration - Reinforced Psychosocial - 60-Day - Assessment Depression reassess: Management of stress: Progressing, Management of depression: Progressing, Practicing interventions: Progressing Tobacco - Initial Assessment Tobacco - 30-Day Assessment Tobacco - 60-Day Assessment - Stage of Change Stages of Change:: Action - Learning Barriers Learning Barriers: Participates in education - Family Support Do you have family support?: Yes - Tobacco Use Tobacco Use: Non-smoker Do you use smokeless tobacco?: No - Intervention Smoking Cessation Referral:: No Individual Education/Counseling:: No Education Schedule Given:: Yes - Education Gave Education Materials For:: Pulmonary Disease, Risk Factors, Breathing Techniques, Medical Compliance, Pulmonary A&P, Exacerbation Signs & Symptoms, Stress & Relaxation Tobacco - 90-Day Assessment Tobacco - Final Assessment Nutrition/Wt Mgmt - 60-Day - Weight Management Weight:: 168 lb - BMI 25.2 Weight Goals Progress:: Goal met Patient Health Questionnaire 60-Day Re-eval Assessment 1. Little interest or pleasure in doing things: Not at all 2. Feeling down, depressed, or hopeless: Nearly every day 3. Trouble falling or staying asleep, or sleeping too much: Several days 4. Feeling tired or having little energy: Nearly every day 5. Poor appetite or overeating: More than half the days 7. Trouble concentrating on things, such as reading the newspaper or watching television: More than half the days 8. Moving or speaking so slowly that other people could have noticed. Or the opposite - being so fidgety or restless that you have been moving around a lot more than usual: Several days 9. Thoughts that you would be better off , or of hurting yourself in some way: Nearly every day How difficult have these problems made it for you to do your work, take care of things at home, or get along with other people?: Extremely difficult Total Score: 15 Self-Efficacy 60-Day Re-eval Assessment We would like to know how confident you are in doing certain activities. Please select your confidence level for:: Select your confidence level for the following using the scale 1-10 where 1 is not at all confident and 10 is totally confident. Your score is the average of all 6 responses. Fatigue: How confident are you that you can keep the fatigue caused by your disease from interfering with the things you want to do? Select Number: 7 Physical Discomfort or Pain: How confident are you that you can keep the physical discomfort or pain of your disease from interfering with the things you want to do? Select Number: 6 Emotional Distress: How confident are you that you can keep the emotional distress caused by your disease from interfering with the things you want to do? Select Number: 6 Other Symptoms or Health Problems: How confident are you that you can keep other symptoms or health problems from interfering with the things you want to do? Select Number: 7 Different Tasks and Activities: How confident are you that you can do the different tasks and activities needed to manage your health condition so as to reduce your need to see a doctor? Select Number: 7 Medication: How confident are you that you can do things other than just taking medication to reduce how much your illness affects your everyday life? Select Number: 6 Total Score:: 6 Nutrition Survey
== END 2021-06-28 23:59 ==
LOC: PR 09:30
PROVIDERS: PCP Internal Medicine; Referring Provider Internal Medicine Critical Care Medicine; Visit Provider Internal Medicine Critical Care Medicine
DX: J44.9 Chronic obstructive pulmonary disease, unspecified (principal)
CPT/HCPCS: 97150; G0424

== ENCOUNTER → 2021-07-12 10:42 | Outpatient (CLI) | payer MEDICARE, OTHER, SELFPAY ==
[2021-07-12 12:03] LABS: Basophil# 0.05 X10^3/uL; Basophil% 0.8 % (0-1); Eosinophil# 0.36 X10^3/uL; Eosinophils% 5.9 % (0-5); Hematocrit 30.5 % (40-54); Hemoglobin 9.7 g/dL (13.0-16.5); Lymphocyte % 16.5 % (19-41); Mean Corp Hgb Conc 31.8 g/dL (32-36); Mean Corpuscular Hgb 32.2 pg (27.0-32.0); Mean Corpuscular Volume 101.3 fL (80-94); Mean Platelet Vol. 9.6 fl (6.2-12.0); Monocyte# 0.63 X10^3/uL; Monocyte% 10.4 % (0-10); NRBC Flagged by Analyzer 0 % (0-5); Neutrophil # 4.01 X10^3/uL (2.7-7.7); Neutrophil % 66.1 % (47-70); Platelet Count 236 K/mm3 (150-450); RBC Distribution Width CV 13.4 % (11.6-14.6); RBC Distribution Width SD 49.5 fl (35.1-43.9); Red Blood Count 3.01 M/mm3 (4.6-6.2); White Blood Count 6.1 K/mm3 (4.4-11.0)
[2021-07-12 12:23] LABS: Anion Gap 7 (5-15); BUN 29 mg/dL (7-18); BUN/Creat Ratio 17.5 RATIO (10-20); Calcium,Total 9.3 mg/dL (8.5-10.1); Chloride 109 mmol/L (98-107); Cholesterol 118 mg/dL (200); Creatinine, Serum 1.66 mg/dL (0.70-1.30); EST Glomerular Filtration Rate 43 mL/min (>60); Est Glom Filt Rate - Afr Amer 52 mL/min (>60); Glucose 94 mg/dL (74-106); High Density Lipoprotein 41 mg/dL; Potassium 4.7 mmol/L (3.5-5.1); Sodium Level 142 mmol/L (136-145); Thyroid Stim Hormone (TSH) 2.65 uIU/mL (0.358-3.74); Triglycerides 120 mg/dL; Very Low Density Lipoprotein 24 mg/dL (5-40)
== END ==
PROVIDERS: PCP Internal Medicine; Referring Provider Nurse Practitioner Family; Visit Provider Nurse Practitioner Family
DX: F31.9 Bipolar disorder, unspecified (principal); I25.10 Atherosclerotic heart disease of native coronary artery without angina pectoris; E78.5 Hyperlipidemia, unspecified
CPT/HCPCS: 36415; 80048; 80061; 84443; 85025

== ENCOUNTER → 2021-07-16 11:24 | Outpatient (CLI) | payer MEDICARE, OTHER, SELFPAY ==
[2021-07-16 13:00] LABS: Vitamin B12 506 pg/mL (211-911)
== END ==
PROVIDERS: PCP Internal Medicine; Referring Provider Nurse Practitioner Family; Visit Provider Nurse Practitioner Family
DX: D53.9 Nutritional anemia, unspecified (principal)
CPT/HCPCS: 36415; 82607; 82746

== ENCOUNTER 2021-07-25 09:30 | Outpatient (RCR) | payer MEDICARE, OTHER, SELFPAY ==
[2021-06-29 00:31] VITALS: BMI 25.2
--- NOTE | 2021-07-16 07:03 | PCM.PR.TP ---
Exercise - 90-Day Assessment - Physician Prescribed Exercise Modalities: Treadmill, Airdyne, NuStep Frequency (days/week): 3 - M, W, F Duration (minutes): 38 Aerobic Exercise [30-60 min 3-7x/week]:: Met Target heart rate: 92-120 Natalee-13 METs - Progression: 0.5-1.0 MET, RPE 11-14 WEEK: 3.0 - Home Exercise Home Exercise?: Yes Frequency:: walks with Time (minutes):: 30 Disease Management - 90-Day - Hypoxemia Reassessment: Demonstrates knowledge of O2 Rx with exercise - Medications Medication list reviewed:: Yes Taking medications 100% of the time:: Met Medication reassessment: Yes Pt demonstrates correct technique timing for MDI, Yes Pt demonstrates correct technique timing for DPI, Yes Pt demonstrates correct technique timing for NEB, Yes Pt demonstrates correct technique timing for spacer - Bronchial Hygiene Bronchial Hygiene Plan: Yes Pt demonstrates correctly for effective cough, Yes Pt demo correct for device - Return demonstration use of Acapella, Yes Pt demo correct for sputum management - Return demonstration use of PEP therapy, Yes Pt demo correct for improved hydration, Yes Pt demo correct for hand hygiene, Yes Pt demo correct for verbalize when to call MD Psychosocial - 90-Day - Assessment Depression reassess: Management of stress: Met, Management of depression: Met, Practicing interventions: Met Tobacco - Initial Assessment Tobacco - 30-Day Assessment Tobacco - 60-Day Assessment Tobacco - 90-Day Assessment - Stage of Change Stages of Change:: Action - Learning Barriers Learning Barriers: Participates in education - Family Support Do you have family support?: Yes - and Daughter very supportive - Tobacco Use Tobacco Use: Non-smoker - Education Gave Education Materials For:: Pulmonary Disease, Risk Factors, Breathing Techniques, Medical Compliance, Pulmonary A&P, Exacerbation Signs & Symptoms, Stress & Relaxation Tobacco - Final Assessment Nutrition/Wt Mgmt - 90-Day - Weight Management Weight Assessment:: BMI 21 to 25 Weight:: 171 lb - BMI 25.2 Weight Goals Progress:: Progressing Patient Health Questionnaire 90-Day Re-eval Assessment 1. Little interest or pleasure in doing things: Not at all 2. Feeling down, depressed, or hopeless: More than half the days 3. Trouble falling or staying asleep, or sleeping too much: Several days 4. Feeling tired or having little energy: More than half the days 5. Poor appetite or overeating: Several days 6. Feeling bad about yourself -- or that you are a failure or have let yourself or your family down: Not at all 7. Trouble concentrating on things, such as reading the newspaper or watching television: Not at all 8. Moving or speaking so slowly that other people could have noticed. Or the opposite - being so fidgety or restless that you have been moving around a lot more than usual: Several days 9. Thoughts that you would be better off , or of hurting yourself in some way: Several days How difficult have these problems made it for you to do your work, take care of things at home, or get along with other people?: Somewhat difficult Total Score: 8 Self-Efficacy 90-Day Re-eval Assessment We would like to know how confident you are in doing certain activities. Please select your confidence level for:: Select your confidence level for the following using the scale 1-10 where 1 is not at all confident and 10 is totally confident. Your score is the average of all 6 responses. Fatigue: How confident are you that you can keep the fatigue caused by your disease from interfering with the things you want to do? Select Number: 8 Physical Discomfort or Pain: How confident are you that you can keep the physical discomfort or pain of your disease from interfering with the things you want to do? Select Number: 7 Emotional Distress: How confident are you that you can keep the emotional distress caused by your disease from interfering with the things you want to do? Select Number: 7 Other Symptoms or Health Problems: How confident are you that you can keep other symptoms or health problems from interfering with the things you want to do? Select Number: 8 Different Tasks and Activities: How confident are you that you can do the different tasks and activities needed to manage your health condition so as to reduce your need to see a doctor? Select Number: 8 Medication: How confident are you that you can do things other than just taking medication to reduce how much your illness affects your everyday life? Select Number: 7 Total Score:: 7 Nutrition Survey
== END 2021-07-29 23:59 ==
LOC: PR 09:30
PROVIDERS: PCP Internal Medicine; Referring Provider Internal Medicine Critical Care Medicine; Visit Provider Internal Medicine Critical Care Medicine
DX: J44.9 Chronic obstructive pulmonary disease, unspecified (principal)
CPT/HCPCS: 97150; G0424

== ENCOUNTER 2021-11-27 14:05 | Outpatient (CLI) | payer MEDICARE, OTHER, SELFPAY ==
[2021-11-27 15:20] LABS: PSA,Total- Diagnostic 0.48 ng/mL (0.0-4.0)
== END 2021-11-27 23:59 | disposition home or self-care (01) ==
LOC: LAB 14:10
PROVIDERS: PCP Internal Medicine; Referring Provider Registered Nurse; Visit Provider Registered Nurse
DX: C61 Malignant neoplasm of prostate (principal)
CPT/HCPCS: 36415; 84153

== ENCOUNTER 2021-12-07 14:16 | Outpatient (CLI) | payer MEDICARE, OTHER, SELFPAY ==
[2021-12-07 16:07] LABS: PSA,Total- Diagnostic 0.37 ng/mL (0.0-4.0)
== END 2021-12-07 23:59 | disposition home or self-care (01) ==
LOC: LAB 14:18
PROVIDERS: PCP Internal Medicine; Visit Provider Registered Nurse
DX: C61 Malignant neoplasm of prostate (principal)
CPT/HCPCS: 36415; 84153

== ENCOUNTER 2021-12-31 16:02 | Outpatient (CLI) | payer MEDICARE, OTHER, SELFPAY ==
[2021-12-31 17:02] LABS: Absolute Lymphocyte Count 1.07 X10^3/uL (0.83-4.51); Absolute Neutrophil Count 4.7 X10^3/uL (2.0-7.7); Basophil# 0.06 X10^3/uL; Basophil% 0.9 % (0-1); Eosinophil# 0.26 X10^3/uL; Eosinophils% 3.8 % (0-5); Hematocrit 32.1 % (40-54); Hemoglobin 10.4 g/dL (13.0-16.5); Lymphocyte # 1.07 X10^3/ul (0.83-4.51); Lymphocyte % 15.6 % (19-41); Mean Corp Hgb Conc 32.4 g/dL (32-36); Mean Corpuscular Hgb 33.1 pg (27.0-32.0); Mean Corpuscular Volume 102.2 fL (80-94); Mean Platelet Vol. 9.2 fl (6.2-12.0); Monocyte# 0.76 X10^3/uL; Monocyte% 11.1 % (0-10); NRBC Flagged by Analyzer 0 % (0-5); Neutrophil # 4.67 X10^3/uL (2.7-7.7); Neutrophil % 68.2 % (47-70); Platelet Count 243 K/mm3 (150-450); RBC Distribution Width CV 13.5 % (11.6-14.6); RBC Distribution Width SD 50.4 fl (35.1-43.9); Red Blood Count 3.14 M/mm3 (4.6-6.2); White Blood Count 6.9 K/mm3 (4.4-11.0)
[2021-12-31 17:36] LABS: ALB/GLOB Ratio 0.9 RATIO (0.9-2.4); AST(SGOT) 17 U/L (15-37); Alanine Aminotransfer ALT/SGPT 24 U/L (16-61); Albumin, Serum 3.3 g/dL (3.2-5.0); Alkaline Phosphatase 87 U/L (45-117); Anion Gap 5 (5-15); BUN 18 mg/dL (7-18); BUN/Creat Ratio 9.6 RATIO (10-20); Calcium,Total 8.7 mg/dL (8.5-10.1); Chloride 108 mmol/L (98-107); Creatinine, Serum 1.87 mg/dL (0.70-1.30); EST Glomerular Filtration Rate 37 mL/min (>60); Est Glom Filt Rate - Afr Amer 45 mL/min (>60); Globulin 3.8 g/dL (2.2-4.2); Glucose 107 mg/dL (74-106); Potassium 4.6 mmol/L (3.5-5.1); Protein, Total 7.1 g/dL (6.4-8.2); Sodium Level 141 mmol/L (136-145)
== END 2021-12-31 23:59 | disposition home or self-care (01) ==
LOC: BIMLAB 16:03
PROVIDERS: PCP Internal Medicine; Referring Provider Internal Medicine; Visit Provider Internal Medicine
DX: R11.10 Vomiting, unspecified (principal); J44.9 Chronic obstructive pulmonary disease, unspecified
CPT/HCPCS: 36415; 80053; 85025

== ENCOUNTER → 2022-01-17 | Outpatient (CLI) | payer MEDICARE, OTHER, SELFPAY ==
--- NOTE | 2022-01-17 09:04 | ART_ITS ---
Reason For Study: PVD Procedure A bilateral lower extremity continuous wave Doppler with analog waveform analysis and ankle brachial indexes. Left Segmental Pressures Left brachial= 128mmHg. Left posterior tibial artery = 129mmHg. Left dorsalis pedis artery = 133mmHg. The left dorsalis pedis waveforms are triphasic. The left posterior tibial artery waveforms are triphasic. Right Segmental Pressures Right posterior tibial artery = 115mmHg. Right dorsalis pedis artery = 115mmHg. The right dorsalis pedis waveforms are triphasic. The right posterior tibial artery waveforms are biphasic. Indices The right ankle brachial index by the dorsalis pedis is .9. The right ankle brachial index by the posterior tibial artery is .9. The left ankle brachial index by the posterior tibial artery is 1.01. The left ankle brachial index by the dorsalis pedis is 1.04. VL/Ankle Brachial Index Interpretation Summary Mildly abnormal right PT and DP ankle-brachial index of 0.9 and 0.9 respectivel y with biphasic right posterior tibial Doppler waveforms and normal triphasic right dorsalis pedis Do ppler waveforms Normal left PT and DP ankle-brachial index of 1.01 and 1.04 respectively with n ormal left posterior tibial and dorsalis pedis triphasic Doppler waveforms Ordering Physician: Bradley Castrejon Performed By: Roberto Chavez [id number]
== END | disposition home or self-care (01) ==
LOC: CVS 09:03
PROVIDERS: PCP Internal Medicine; Referring Provider Internal Medicine; Visit Provider Internal Medicine
DX: I73.9 Peripheral vascular disease, unspecified (principal)
CPT/HCPCS: 93922

== ENCOUNTER → 2022-04-02 | Outpatient (CLI) | payer MEDICARE, OTHER, SELFPAY ==
--- NOTE | 2022-04-02 08:18 | US_ITS ---
STUDY: RENAL ULTRASOUND - COMPLETE REASON FOR EXAM: Male, 81 years old. CKD TECHNIQUE: Ultrasound evaluation of the kidneys was performed with real-time and static lay-scale imaging. COMPARISON: None. FINDINGS: RIGHT KIDNEY: with mild renal atrophy. The right kidney measures 8.9 cm x 5.5 cm x 4 cm. There is a normal cortex of the right kidney. The renal cortex measures 1.2 cm. There is no right renal mass or cyst. There are no right renal calculi. There is no right hydronephrosis. DISTAL RIGHT URETER: There is non-visualization of the distal right ureter. There is no demonstrated right ureterovesical junction calculus. There is a visualized right ureteral jet. LEFT KIDNEY: Normal location of the left kidney, which is normal in size. The left kidney measures 10.1 cm x 5.5 cm x 4.4 cm. There is a normal cortex of the left kidney. The renal cortex measures 1.1 cm. There is no left renal mass or cyst. There are no left renal calculi. There is no left hydronephrosis. DISTAL LEFT URETER: There is non-visualization of the distal left ureter. There is no demonstrated left ureterovesical junction calculus. There is a visualized left ureteral jet. BLADDER: The distended urinary bladder has a volume of 144 ml. There is a normal wall thickness of the distended urinary bladder. There is no demonstrated mass within the urinary bladder. There are no demonstrated bladder calculi. US/Kidney and Bladder IMPRESSION: Mild degree of right renal atrophy. Electronically Signed: Murphy Orozco MD at 12:25 EDT ,
== END | disposition home or self-care (01) ==
PROVIDERS: PCP Internal Medicine; Referring Provider Internal Medicine Nephrology; Visit Provider Internal Medicine Nephrology
DX: N18.32 Chronic kidney disease, stage 3b (principal)
CPT/HCPCS: 76770

== ENCOUNTER → 2022-04-18 | Outpatient (CLI) | payer MEDICARE, OTHER, SELFPAY ==
[2022-04-18 15:12] LABS: Hematocrit 30.6 % (40-54); Hemoglobin 10.1 g/dL (13.0-16.5); Mean Corpuscular Hgb 33.1 pg (27.0-32.0); Mean Corpuscular Volume 100.3 fL (80-94); Mean Platelet Vol. 9.3 fl (6.2-12.0); Platelet Count 241 K/mm3 (150-450); RBC Distribution Width CV 13.4 % (11.6-14.6); RBC Distribution Width SD 49.2 fl (35.1-43.9); Red Blood Count 3.05 M/mm3 (4.6-6.2); White Blood Count 7.5 K/mm3 (4.4-11.0)
[2022-04-18 15:24] LABS: Albumin, Serum 3.2 g/dL (3.2-5.0); BUN 19 mg/dL (7-18); BUN/Creat Ratio 9.3 RATIO (10-20); Chloride 106 mmol/L (98-107); Creatinine, Serum 2.05 mg/dL (0.70-1.30); EST Glomerular Filtration Rate 33 mL/min (>60); Est Glom Filt Rate - Afr Amer 40 mL/min (>60); Glucose 107 mg/dL (74-106); Phosphorus 2.8 mg/dL (2.5-4.9); Potassium 4.6 mmol/L (3.5-5.1); Sodium Level 139 mmol/L (136-145)
[2022-04-18 15:27] LABS: Vitamin D,25 Hydroxy 103.9 ng/mL
[2022-04-18 15:33] LABS: PTHIN 55.5 pg/mL (18.4-80.1)
[2022-04-21 08:26] LABS: Anti-dsDNA Ab <1 IU/mL (0-9)
[2022-04-22 17:07] LABS: Cytoplasmic Ab (C-ANCA) <1:20 titer (Neg:<1:20)
[2022-04-22 20:00] LABS: Complement C3 127 mg/dL (82-167); Perinuclear Ab (P-ANCA) <1:20 titer (Neg:<1:20)
== END | disposition home or self-care (01) ==
LOC: BIMLAB 13:31
PROVIDERS: PCP Internal Medicine; Referring Provider Internal Medicine Nephrology; Visit Provider Internal Medicine Nephrology
DX: N18.32 Chronic kidney disease, stage 3b (principal)
CPT/HCPCS: 36415; 80069; 82306; 83970; 85027; 86160; 86225; 86256

== ENCOUNTER → 2022-04-22 | Outpatient (CLI) | payer MEDICARE, OTHER, SELFPAY ==
[2022-04-22 15:40] LABS: Protein, Urine (Random) 16.1 mg/dL (<11.9); Protein:Creat Ratio 90 mg/g CRE (0-200)
== END | disposition home or self-care (01) ==
LOC: LABSPEC 14:04
PROVIDERS: PCP Internal Medicine; Referring Provider Internal Medicine Nephrology; Visit Provider Internal Medicine Nephrology
DX: N18.32 Chronic kidney disease, stage 3b (principal)
CPT/HCPCS: 82570; 84156

== ENCOUNTER → 2022-06-04 | Outpatient (CLI) | payer MEDICARE, OTHER, SELFPAY ==
--- NOTE | 2022-06-04 14:10 | RAD_ITS ---
STUDY: X-RAY CHEST REASON FOR EXAM: Male, 81 years old. Cough and chest congestion TECHNIQUE: PA and lateral views of the chest. COMPARISON: Comparison is made with prior study dated 01/19/2021. FINDINGS: There is hyperinflation of the lungs consistent with chronic obstructive lung disease (COPD). Scattered calcified granulomas. There is no demonstrated pleural abnormality. Sternal cerclage wires and vascular clips are present from a prior sternotomy and coronary artery bypass graft procedure (CABG). Normal mediastinum and robert. Normal visualized pulmonary arteries. There is atherosclerotic calcification of the aortic arch with tortuosity. There is demineralization of the osseous structures. There is degenerative osteoarthritis of the bilateral shoulders. There is no demonstrated abnormality of the visualized soft tissue structures of the upper abdomen. RAD/Chest PA and Lateral IMPRESSION: Hyperinflation. The lungs are clear. Electronically Signed: Murphy Orozco MD at 14:45 EDT ,
== END | disposition home or self-care (01) ==
LOC: RAD 13:56
PROVIDERS: PCP Internal Medicine; Referring Provider Internal Medicine; Visit Provider Internal Medicine
DX: R05.9 Cough, unspecified (principal); R09.89 Other specified symptoms and signs involving the circulatory and respiratory systems
CPT/HCPCS: 71046

== ENCOUNTER → 2022-07-15 | Outpatient (CLI) | payer MEDICARE, OTHER, SELFPAY ==
--- NOTE | 2022-07-15 13:10 | ECHOCS_ITS ---
Reason For Study: Dyspnea/SOB Procedure This was a 2D Doppler, Color Flow transthoracic echocardiogram. The study was technically difficult. Contrast injection was performed. Exam performed in department. Left Ventricle Normal LV size. Left ventricular systolic function is normal. The estimated ejection fraction is 65 %. No evidence for diastolic dysfunction. No regional wall motion abnormalities noted. Right Ventricle Normal RV size. Normal systolic function. Atria Normal left atrium. Normal right atrium. No doppler evidence for ASD. Mitral Valve There is no mitral annular calcification. Normal mitral valve. The mitral papillary muscle appears thickened and/or calcified. Trivial mitral valve insufficiency. Tricuspid Valve Normal tricuspid valve. Mild tricuspid valve insufficiency. Right ventricular systolic pressure estimated to be 29 mmHg. Aortic Valve Trisinus/trileaflet aortic valve. Mild focal aortic valve thickening. Pulmonic Valve The pulmonic valve is not well visualized. Mild (1+) pulmonic valve insufficiency. Great Vessels Borderline-mildly enlarged aortic root. Pericardium/Pleural No pericardial effusion. Medication 20 gauge I.V. with prn adaptor inserted into left arm. Diluted definity 2ml given slow IV push to enhance endocardial definition. MMode/2D Measurements & Calculations LVIDd: 3.8 cm IVSd: 0.94 cm Ao root diam: 4.0 cm LVIDs: 2.5 cm LVPWd: 0.92 cm LA dimension: 2.7 cm RVDd: 3.9 cm FS: 35.3 % LAV(MOD-bp): 31.0 ml LA A4 area: 15.0 cm2 RA A4 area: 15.7 cm2 LAV(MOD-bp) Indexed: 16.4 ml/m2 LAV(MOD-sp2): 22.5 ml LAV(MOD-sp4): 31.6 ml Time Measurements MV dec time: 0.20 sec Doppler Measurements & Calculations MV E max brennen: 37.3 cm/sec Lat Peak E' Brennen: 11.3 cm/sec Med Peak E' Brennen: 8.3 cm/sec MV A max brennen: 61.2 cm/sec E/E' lat: 3.3 E/E' med: 4.5 MV E/A: 0.61 MV V2 max: 75.9 cm/sec MV P1/2t max brennen: 49.2 cm/sec Ao V2 max: 114.2 cm/sec MV max P.3 mmHg MV P1/2t: 76.0 msec Ao max P.2 mmHg MV V2 mean: 31.0 cm/sec MV dec slope: 189.4 cm/sec2 Ao V2 mean: 76.5 cm/sec MV mean P.48 mmHg Ao mean P.7 mmHg MV V2 VTI: 18.5 cm MVA(P1/2t): 2.9 cm2 Ao V2 VTI: 19.6 cm LV V1 max: 92.1 cm/sec PA V2 max: 109.2 cm/sec PI end-d brennen: 102.0 cm/sec LV V1 max P.4 mmHg LV V1 mean P.6 mmHg LV V1 mean: 58.4 cm/sec LV V1 VTI: 17.5 cm TR max brennen: 253.1 cm/sec TR max P.7 mmHg ECHO/Echo Complete W/ Contrast Interpretation Summary The study was technically difficult. Contrast injection was performed. Left ventricular systolic function is normal. The estimated ejection fraction is 65 %. The mitral papillary muscle appears thickened and/or calcified. Trivial mitral valve insufficiency. Mild tricuspid valve insufficiency. Mild focal aortic valve thickening. Mild (1+) pulmonic valve insufficiency. Borderline-mildly enlarged aortic root. Right ventricular systolic pressure estimated to be 29 mmHg. No evidence for diastolic dysfunction. Ordering Physician: Godwin Vines Referring Physician: Bradley Castrejon Performed By: Joel Carrera RCS
== END | disposition home or self-care (01) ==
LOC: CVS 13:06
PROVIDERS: PCP Internal Medicine; Referring Provider Internal Medicine Critical Care Medicine; Visit Provider Internal Medicine Critical Care Medicine
DX: I25.10 Atherosclerotic heart disease of native coronary artery without angina pectoris (principal)
CPT/HCPCS: 93306; Q9957; A4216; C8929

== ENCOUNTER → 2022-10-07 | Outpatient (CLI) | payer MEDICARE, OTHER, SELFPAY ==
[2022-10-07 12:05] LABS: Absolute Lymphocyte Count 1.29 X10^3/uL (0.83-4.51); Absolute Neutrophil Count 5.1 X10^3/uL (2.0-7.7); Basophil# 0.06 X10^3/uL; Basophil% 0.8 % (0-1); Eosinophil# 0.26 X10^3/uL; Eosinophils% 3.4 % (0-5); Hematocrit 34.1 % (40-54); Hemoglobin 11.4 g/dL (13.0-16.5); Lymphocyte # 1.29 X10^3/ul (0.83-4.51); Lymphocyte % 17.1 % (19-41); Mean Corp Hgb Conc 33.4 g/dL (32-36); Mean Corpuscular Hgb 33.1 pg (27.0-32.0); Mean Corpuscular Volume 99.1 fL (80-94); Mean Platelet Vol. 9.6 fl (6.2-12.0); Monocyte# 0.78 X10^3/uL; Monocyte% 10.3 % (0-10); NRBC Flagged by Analyzer 0 % (0-5); Neutrophil # 5.14 X10^3/uL (2.7-7.7); Neutrophil % 68.1 % (47-70); Platelet Count 324 K/mm3 (150-450); RBC Distribution Width CV 13.1 % (11.6-14.6); RBC Distribution Width SD 47.5 fl (35.1-43.9); Red Blood Count 3.44 M/mm3 (4.6-6.2); White Blood Count 7.6 K/mm3 (4.4-11.0)
[2022-10-07 12:35] LABS: ALB/GLOB Ratio 0.8 RATIO (0.9-2.4); AST(SGOT) 9 U/L (15-37); Alanine Aminotransfer ALT/SGPT 18 U/L (16-61); Albumin, Serum 3.3 g/dL (3.2-5.0); Alkaline Phosphatase 75 U/L (45-117); Anion Gap 8 (5-15); BUN 14 mg/dL (7-18); BUN/Creat Ratio 8.9 RATIO (10-20); Calcium,Total 9.3 mg/dL (8.5-10.1); Chloride 99 mmol/L (98-107); Creatinine, Serum 1.58 mg/dL (0.70-1.30); EST Glomerular Filtration Rate 45 mL/min (>60); Est Glom Filt Rate - Afr Amer 55 mL/min (>60); Globulin 4.4 g/dL (2.2-4.2); Glucose 98 mg/dL (74-106); Potassium 5.4 mmol/L (3.5-5.1); Protein, Total 7.7 g/dL (6.4-8.2); Sodium Level 135 mmol/L (136-145)
== END | disposition home or self-care (01) ==
LOC: BIMLAB 10:40
PROVIDERS: PCP Internal Medicine; Referring Provider Internal Medicine; Visit Provider Internal Medicine
DX: J44.9 Chronic obstructive pulmonary disease, unspecified (principal); F31.9 Bipolar disorder, unspecified; N18.30 Chronic kidney disease, stage 3 unspecified
CPT/HCPCS: 36415; 80053; 85025

== ENCOUNTER → 2022-10-21 | Outpatient (CLI) | payer MEDICARE, OTHER, SELFPAY ==
[2022-10-21 15:29] LABS: AST(SGOT) 13 U/L (15-37); Alanine Aminotransfer ALT/SGPT 22 U/L (16-61); Albumin, Serum 3.1 g/dL (3.2-5.0); Alkaline Phosphatase 72 U/L (45-117); Bilirubin, Direct 0.07 mg/dL (0.00-0.30); Cholesterol 154 mg/dL (200); Globulin 4.1 g/dL (2.2-4.2); High Density Lipoprotein 39 mg/dL; Protein, Total 7.2 g/dL (6.4-8.2); Triglycerides 118 mg/dL; Very Low Density Lipoprotein 24 mg/dL (5-40)
[2022-10-21 15:31] LABS: Anion Gap 8 (5-15); BUN 14 mg/dL (7-18); BUN/Creat Ratio 8.7 RATIO (10-20); Calcium,Total 9.2 mg/dL (8.5-10.1); Chloride 103 mmol/L (98-107); Creatinine, Serum 1.61 mg/dL (0.70-1.30); EST Glomerular Filtration Rate 44 mL/min (>60); Est Glom Filt Rate - Afr Amer 53 mL/min (>60); Glucose 89 mg/dL (74-106); Potassium 4.6 mmol/L (3.5-5.1); Sodium Level 138 mmol/L (136-145)
[2022-10-24 19:37] LABS: Lamotrigine (Lamictal) Level 3.6 ug/mL (2.0-20.0)
== END | disposition home or self-care (01) ==
LOC: BIMLAB 13:14
PROVIDERS: Nurse Practitioner Family; PCP Internal Medicine; Referring Provider Internal Medicine; Visit Provider Internal Medicine
DX: F31.9 Bipolar disorder, unspecified (principal); E78.5 Hyperlipidemia, unspecified; I25.10 Atherosclerotic heart disease of native coronary artery without angina pectoris; Z95.1 Presence of aortocoronary bypass graft
CPT/HCPCS: 36415; 80048; 80061; 80076; 82542

== ENCOUNTER → 2022-11-12 | Outpatient (CLI) | payer MEDICARE, OTHER, SELFPAY ==
[2022-11-12 17:25] LABS: PSA,Total- Diagnostic 0.37 ng/mL (0.0-4.0)
== END | disposition home or self-care (01) ==
LOC: BIMLAB 15:58
PROVIDERS: PCP Internal Medicine; Referring Provider Urology; Visit Provider Urology
DX: C61 Malignant neoplasm of prostate (principal)
CPT/HCPCS: 36415; 84153

== ENCOUNTER 2023-02-18 16:17 | Inpatient (IN) | payer MEDICARE, OTHER, SELFPAY ==
[2023-02-18 16:25] VITALS: BP 125/86; PULSE 88; RESP 22; TEMP 37.2; O2SAT 98
[2023-02-18 16:56] VITALS: BMI 24.5
[2023-02-18 18:50] VITALS: PULSE 88
[2023-02-18] MEDS: Metoprolol Tartrate 25 MG Tablet 12.5 MG PO (18:50)
[2023-02-18 18:56] VITALS: O2SAT 98
[2023-02-18 20:00] VITALS: PULSE 88; RESP 28
[2023-02-18] MEDS: Budesonide Respules 0.5 MG/2 ML AMPUL.NEB. 1 MG INHALATION (20:00)
[2023-02-18] MEDS: Atorvastatin Calcium 40 MG Tablet PO (21:36)
[2023-02-18] MEDS: MELATONIN 3 MG TABLET PO (21:36)
[2023-02-18] MEDS: Heparin Injection (Vial) 5,000 UNIT/ML VIAL 5000 UNIT SC (21:42)
--- NOTE | 2023-02-18 21:51 | PCM.HP.STD ---
HPI - General General Date of Admission: 02/18/23 Date of Service: 02/18/23 Chief Complaint: Here for rehabilitation. HPI Narrative JOSIE KERNS, is a 82 Male who presents with followin02/01/2023 [facility] with hematemesis, transferred to [facility]. 02/02/2023 Patient high risk, highly complicated transfer to [facility]. 02/03/2023 Admit to [facility] with hematemesis with concern for emphysematous gastritis, portal venous gas. 02/03/2023 EGD showed focal severe inflammation with appearance of necrosis of greater curvature/fundus. 02/04/2023 Exploratory laparotomy with wedge gastrectomy with partial sleeve of the stomach. 02/05/2023 Transfused 2 units PRBC for hemoglobin 6.4, improved to 9.0. 02/06/2023 Extubated, on oxygen 4 liters per nasal cannula, appeared fluid overloaded, hypertensive overnight. Hemoglobin stable. 02/07/2023 Worsening pleural effusion, Lasix 40mg given. 02/08/2023 CT chest showed increase of partially loculated pleural effusions. IR consulted, too small to be drained. 02/12/2023 Return of bowel function, NG removed, passed swallow evaluation, Advance diet to clear liquid diet. 02/13/2023 MBS showed mild/moderate oral phase dysphagia, no significant pharyngeal phase issues identified. Minced and moist diet with thin liquids recommended. 02/14/2023 Stop TPN, start PO diet. 02/15/2023 TPN weaned off. 02/16/2023 Delgado removed, voiding freely, Encourage PO intake. 02/17/2023 Defer Corpak, up in chair drinking Ensure. 02/18/2023 Minerva removed, oxygen 2 liters per nasal cannula, wean as tolerated. 02/18/2023 Admit to TCU with debility, here for rehabilitation, strengthening, prior to discharge home with . [facility] Medical History (Updated 02/18/23 @ 22:[address] Jean Pérez MD) Atherosclerotic heart disease of [place] coronary artery without angina pectoris Bipolar disorder BPH (benign prostatic hyperplasia) Chest congestion Chronic vomiting CKD (chronic kidney disease), stage III COPD (chronic obstructive pulmonary disease) Cough Degeneration of cervical intervertebral disc Depressive disorder Diarrhea Emphysema, unspecified History of alcohol abuse History of prostate cancer Hyperlipidemia Hypocalcemia Impotence of organic origin Macrocytic anemia Malignant neoplasm of skin Nonallopathic lesion of sacroiliac region SHELDON (obstructive sleep apnea) PAD (peripheral artery disease) Postoperative atrial fibrillation (12/09/19) Sciatica Sleep disorder breathing Tobacco dependence in remission Tremor Volvulus of colon Home Medications multivitamin 1 cap PO DAILY supplement 05/10/20 [History Last Taken Unknown] albuterol sulfate 2.5 mg/3 mL (0.083 %) solution for nebulization 2.5 mg (3 mL) inhalation Q4H PRN shortness of breath or wheezing #180 mL 05/24/20 [Rx Last Taken Unknown] aspirin 81 mg tablet,delayed release 81 mg PO DAILY heart health 05/24/20 [History Last Taken Unknown] B-complex with vitamin C 1 cap PO DAILY 09/07/21 [History Last Taken Unknown] guaifenesin 1,200 mg tablet, extended release 12 hr (Mucinex) 1,200 mg PO Q12H #60 tabs 05/14/22 [Rx Last Taken Unknown] lamotrigine 150 mg tablet 150 mg PO DAILY #90 tabs 08/13/22 [Rx Last Taken Unknown] acetaminophen 325 mg tablet 650 mg PO Q4H PRN Pain 02/18/23 [History Last Taken Unknown] acetylcysteine 200 mg/mL (20 %) solution 1 ml inhalation Q4H PRN PRN Congestion 02/18/23 [History Last Taken Unknown] albuterol sulfate 90 mcg/actuation aerosol inhaler 2 puff inhalation Q4H PRN PRN wheezing/sob 02/18/23 [History Last Taken Unknown] atorvastatin 40 mg tablet 40 mg PO QHS cholesterol 02/18/23 [History Last Taken Unknown] bisacodyl 10 mg rectal suppository 10 mg RI DAILY PRN Constipation 02/18/23 [History Last Taken Unknown] budesonide 0.5 mg/2 mL suspension for nebulization 1 mg inhalation BID lungs 02/18/23 [History Last Taken Unknown] budesonide-formoterol HFA 160 mcg-4.5 mcg/actuation aerosol inhaler (Symbicort) 2 puff inhalation BID lungs 02/18/23 [History Last Taken Unknown] bupropion HCl 150 mg 24 hr tablet, extended release 150 mg PO DAILY antidepressant 02/18/23 [History Last Taken Unknown] cholecalciferol (vitamin D3) 25 mcg (1,000 unit) tablet (Vitamin D3) 25 mcg PO DAILY supplement 02/18/23 [History Last Taken Unknown] furosemide 40 mg tablet 40 mg PO DAILY water pill 02/18/23 [History Last Taken Unknown] heparin (porcine) 5,000 unit/mL injection syringe 5,000 unit subcut Q8H blood thinner 02/18/23 [History Last Taken Unknown] hydralazine 20 mg/mL injection solution 20 mg IV Q6H PRN BP >160 02/18/23 [History Last Taken Unknown] ipratropium 0.5 mg-albuterol 3 mg (2.5 mg base)/3 mL nebulization soln 3 ml inhalation Q4H PRN PRN wheezing/sob 02/18/23 [History Last Taken Unknown] ipratropium bromide 0.02 % solution for inhalation 2.5 ml inhalation Q4H PRN wheezing/sob 02/18/23 [History Last Taken Unknown] lamotrigine 25 mg tablet (Lamictal) 25 mg PO DAILY seizures 02/18/23 [History Last Taken Unknown] melatonin 3 mg tablet 3 mg PO QHS sleep 02/18/23 [History Last Taken Unknown] metoprolol tartrate 25 mg tablet 12.5 mg PO BID BP 02/18/23 [History Last Taken Unknown] metoprolol tartrate 5 mg/5 mL intravenous syringe 5 mg IV Q5M PRN AFIB HR >100 02/18/23 [History Last Taken Unknown] multivitamin,tx-minerals 1 tab PO DAILY supplement 02/18/23 [History Last Taken Unknown] ondansetron HCl (PF) 4 mg/2 mL injection solution 4 mg IM Q6H PRN Nausea 02/18/23 [History Last Taken Unknown] pantoprazole 40 mg intravenous solution 40 mg IV 0600,1700 acid reflux 02/18/23 [History Last Taken Unknown] tamsulosin 0.4 mg capsule 0.4 mg PO DAILY prostate 02/18/23 [History Last Taken Unknown] umeclidinium 62.5 mcg/actuation blister powder for inhalation (Incruse Ellipta) 1 inh inhalation DAILY lungs 02/18/23 [History Last Taken Unknown] Allergy/AdvReac Type Severity Reaction Status Date / Time meclizine AdvReac Other Verified 02/18/23 17:19 Family History Father Emphysema, unspecified Heart disease Mother Kidney disease Heart disease Brother Heart disease Surgical History (Updated 02/18/23 @ 22:[address] Jean Pérez MD) H/O coronary artery bypass surgery (12/07/19) H/O hemicolectomy History of appendectomy History of cholecystectomy History of colonoscopy History of left inguinal hernia repair History of open heart surgery History of partial colectomy History of partial gastrectomy Social History (Updated 02/18/23 @ 22:[address] Jean Pérez MD) household members: spouse Smoking Status: Former smoker quit date: 08/29/13 Tobacco: How many years used: 54 second hand exposure: Yes alcohol intake: never substance use type: does not use what type of physical activity do you participate in: other details: cardiac rehab ROS Constitutional Constitutional: Denies chills, fever(s) or weight gain ENT HEENT: Denies headache(s), nasal congestion or nasal discharge Cardiovascular Cardiovascular: Denies chest pain or palpitations Respiratory/Chest Respiratory/Chest: Denies cough, excessive phlegm production or shortness of breath with exertion Gastrointestinal Gastrointestinal: Denies abdominal pain, nausea or vomiting Genitourinary Genitourinary: Denies dysuria Musculoskeletal Musculoskeletal: Denies joint pain or joint swelling Integumentary Integumentary: Denies rash or wounds Neurologic Neurologic: Denies focal weakness, numbness or tingling Psychiatric Psychiatric: Denies anxiety, auditory hallucinations, depression, homicidal ideation or suicidal ideation Vital Signs Vital Signs Vital Signs: 02/18/23 16:25 02/18/23 18:50 02/18/23 18:56 Temperature 98.9 F Temperature Source Temporal Pulse Rate 88 88 Pulse Rhythm Regular Pulse Strength Normal (2+) Respiratory Rate 22 H Respiratory Effort Normal Non-Labored Respiratory Depth Normal Respiratory Pattern Normal Blood Pressure 125/86 H Blood Pressure Mean 99 Blood Pressure Source Monitor Blood Pressure Position Sitting Blood Pressure Location Left Arm Pulse Ox 98 98 Oxygen Delivery Method Nasal Cannula Nasal Cannula Oxygen Flow Rate (L/min) 2 2 Physical Exam Const alert General Appearance: cooperative HEENT normocephalic Eyes PERRL and EOMs intact bilaterally Neck supple, no JVD and no carotid bruits Resp normal respiratory effort, normal air movement and clear to auscultation bilaterally Cardio regular rate and regular rhythm GI normal to inspection, nondistended, normoactive bowel sounds, non-tender and non-distended Extremity normal capillary refill General Extremity: Negative for edema Skin no rashes or lesions noted General Skin Exam: no breakdown Psych affect normal Appearance: appropriate Results Lab / Micro Data Micro: Microbiology 02/18/23 18:47 Nasal Secretion SARS-CoV-2 Antigen (Rapid) - Final Assessment & Plan Assessment/Plan (1) Debility: (2) Upper gastrointestinal bleeding: (3) Gastric necrosis: (4) COPD (chronic obstructive pulmonary disease): (5) GERD (gastroesophageal reflux disease): (6) Hypertension: (7) Bipolar disorder: (8) BPH (benign prostatic hyperplasia): (9) Coronary artery disease: (10) Obstructive sleep apnea: (11) Chronic kidney disease, stage 3a: PLAN: Plan 82 year old male with below past medical history hospitalized for gastric necrosis, 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 Debility - PT/OT. Dysphagia - ST. Pain - Tylenol 1000mg q6h prn pain (1-10). Bowel - senna/colace 1 tablet bid, Dulcolax 10mg pr daily prn. Adult immunization - Administer pneumonia vaccine, covid19 vaccine, flu vaccine as appropriate. DVT prophylaxis - Lovenox 30mg sc daily. Coronary artery disease - Metoprolol 12.5mg bid, aspirin 81mg daily. Hyperlipidemia - Atorvastatin 40mg qhs. COPD - Budesonide 1mg neb bid, Incruse 1 puff daily, Duoneb 3ml q4h prn, home oxygen 2 liters per nasal cannula. Bipolar disorder - Bupropion XL 150mg daily, Lamictal 25mg daily, stable chronic chcf use, GDR not recommended. Pleural effusion - Furosemide 40mg daily thru 02/22/2023. Insomnia - Melatonin 3mg qhs. Nutrition - MVI daily. Nausea - Zofran 4mg po q6h prn. Severe gastritis - Pantoprazole 40mg bid. BPH - Tamsulosin 0.4mg daily. Vitamin D deficiency - D3 25mcg daily.
[2023-02-18 22:00] VITALS: PULSE 93; RESP 28
[2023-02-18] MEDS: Ipratropium/Albuterol Sulfate 3 ML AMPUL.NEB INHALATION (22:00)
[2023-02-19] MEDS: Umeclidinium Bromide Inhaler 1 PUFF INHALATION (05:23)
[2023-02-19 05:24] VITALS: BP 135/70; PULSE 92
[2023-02-19] MEDS: Metoprolol Tartrate 25 MG Tablet 12.5 MG PO ×2 (05:24→17:15)
[2023-02-19] MEDS: lamoTRIgine 25 MG Tablet PO (05:25)
[2023-02-19] MEDS: Furosemide 40 MG Tablet PO (05:25)
[2023-02-19] MEDS: Enoxaparin 30 MG/0.3 ML Syringe SC (05:25)
[2023-02-19] MEDS: Senna/Docusate Sodium 1 Tablet PO (05:25)
[2023-02-19] MEDS: Pantoprazole Sodium 40 MG Tablet PO ×2 (05:25→17:15)
[2023-02-19] MEDS: buPROPion (XL) 150 MG TABLET.XL PO (05:25)
[2023-02-19 06:11] LABS: Absolute Lymphocyte Count 1.08 X10^3/uL (0.83-4.51); Absolute Neutrophil Count 3.8 X10^3/uL (2.0-7.7); Basophil# 0.06 X10^3/uL; Eosinophil# 0.35 X10^3/uL; Eosinophils% 5.8 % (0-5); Hematocrit 30.6 % (40-54); Hemoglobin 9.7 g/dL (13.0-16.5); Lymphocyte # 1.08 X10^3/ul (0.83-4.51); Lymphocyte % 17.9 % (19-41); Mean Corp Hgb Conc 31.7 g/dL (32-36); Mean Corpuscular Hgb 31.3 pg (27.0-32.0); Mean Corpuscular Volume 98.7 fL (80-94); Mean Platelet Vol. 10.3 fl (6.2-12.0); Monocyte# 0.71 X10^3/uL; Monocyte% 11.8 % (0-10); NRBC Flagged by Analyzer 0 % (0-5); Neutrophil % 63.2 % (47-70); Platelet Count 407 K/mm3 (150-450); RBC Distribution Width CV 13.9 % (11.6-14.6); RBC Distribution Width SD 50.1 fl (35.1-43.9)
[2023-02-19 07:07] VITALS: PULSE 88; RESP 22; O2SAT 96
[2023-02-19 07:11] LABS: Anion Gap 10 (5-15); BUN 44 mg/dL (7-18); BUN/Creat Ratio 27.2 RATIO (10-20); Calcium,Total 8.7 mg/dL (8.5-10.1); Chloride 112 mmol/L (98-107); Creatinine, Serum 1.62 mg/dL (0.70-1.30); EST Glomerular Filtration Rate 44 mL/min (>60); Est Glom Filt Rate - Afr Amer 53 mL/min (>60); Estimated Creatinine Clearance 35.19 ml/min; Glucose 99 mg/dL (74-106); Potassium 3.8 mmol/L (3.5-5.1); Sodium Level 145 mmol/L (136-145)
[2023-02-19] MEDS: Budesonide Respules 0.5 MG/2 ML AMPUL.NEB. 1 MG INHALATION ×2 (07:15→18:52)
[2023-02-19] MEDS: Multivitamins,Ther W-Minerals Tablet 1 TABLET PO (08:03)
[2023-02-19] MEDS: Cholecalciferol (VIT D3) 25 MCG TABLET (1,000 UNITS) PO (08:03)
[2023-02-19] MEDS: Tamsulosin HCl 0.4 MG Capsule PO (08:03)
[2023-02-19] MEDS: Aspirin E.C. 81 MG Tablet PO (08:03)
--- NOTE | 2023-02-19 09:37 | CASEMGMT ---
Social Work Met with patient to complete initial assessment. Introduced self and role. Pt slow to respond and poor historian. SW offered to contact for further information. Pt agreed. SW phoned and completed assessment with her. provided great history. For PLOF, see SW assessment. explained pt has hx of open heart surgery, at which time pt refused skilled HHC; hx of prostate cancer two years ago, which he completed 64 radiation treatments and currently in remission. states PCP has been attempted to set up app[facility] get tested/dx with Parkinson's disease. explains pt has been asking for to assist more and slowly losing memory over the past year. Pt never managed the finances in the 56 years of marriage, but began assisting pt with medications the last year. noted pt cannot pick up attendant the pills with his fingers well; puts them in the palm of her hand and gives them to pt. SW educated to Medicare benefit. Encouraged to contact secondary insurance to ensure copay coverage. Discussed code status. states pt has expressed DNR several times prior. Pt also has advanced directives. agreed to bring in copies of advanced directives and to sign DNR-CCA, no intubation form when visiting this evening. MOLST not completed d/t to pt's cognition. SW encouraged and family to view therapy sessions at any time to assist in determining when/if can assist pt at home. appreciative of information. SW will continue to follow. Alyssa Lane [employer]
--- NOTE | 2023-02-19 11:06 | PCM.PN.DRR ---
TCU RX Drug Regimen Review Subjective: TCU Admission. 82 YOM presented to outside ER with hematemesis. 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 Admitted to TCU with debility for strengthening and rehabilitation. Objective: Allergies meclizine Adverse Reaction (Verified 02/18/23 17:19) Other Current Medications Generic Name Dose Route Start Last Admin Trade Name Freq PRN Reason Stop Dose Admin Acetaminophen 1,000 mg 02/18/23 22:15 Acetaminophen 500 Mg Tablet PO Q6H PRN PRN Pain 1-10 Albuterol/Ipratropium 3 ml 02/18/23 17:07 02/18/23 22:00 Ipratropium/Albuterol Sulfate 3 Ml Ampul.Neb INHALATION 3 ml Q4H PRN PRN Administration wheezing/sob Aspirin 81 mg 02/19/23 08:00 02/19/23 08:03 Aspirin E.C. 81 Mg Tablet PO 81 mg DAILYCM MARY Administration Atorvastatin Calcium 40 mg 02/18/23 22:00 02/18/23 21:36 Atorvastatin Calcium 40 Mg Tablet PO 40 mg QHS MARY Administration Bisacodyl 10 mg 02/18/23 17:07 Bisacodyl 10 Mg Suppository RC DAILY PRN Constipation Budesonide 1 mg 02/18/23 18:00 02/19/23 07:15 Budesonide Respules 0.5 Mg/2 Ml Ampul.Neb. INHALATION 1 mg BID.RT MARY Administration Bupropion HCl 150 mg 02/19/23 06:00 02/19/23 05:25 Bupropion (Xl) 150 Mg Tablet.Xl PO 150 mg DAILY MARY Administration Cholecalciferol 25 mcg 02/19/23 08:00 02/19/23 08:03 Cholecalciferol (Vit D3) 25 Mcg Tablet (1,000 Units) PO 25 mcg DAILYCM MARY Administration Enoxaparin Sodium 40 mg 02/20/23 06:00 Enoxaparin 40 Mg/0.4 Ml Syringe SC DAILY MARY Furosemide 40 mg 02/19/23 06:00 02/19/23 05:25 Furosemide 40 Mg Tablet PO 02/22/23 06:01 40 mg DAILY MARY Administration Lamotrigine 25 mg 02/19/23 06:00 02/19/23 05:25 Lamotrigine 25 Mg Tablet PO 25 mg DAILY MARY Administration Melatonin 3 mg 02/18/23 22:00 02/18/23 21:36 Melatonin 3 Mg Tablet PO 3 mg QHS MARY Administration Metoprolol Tartrate 12.5 mg 02/18/23 18:00 02/19/23 05:24 Metoprolol Tartrate 25 Mg Tablet PO 12.5 mg BID MARY Administration Multivitamins/Minerals 1 tablet 02/19/23 08:00 02/19/23 08:03 Multivitamins,Ther W-Minerals Tablet PO 1 tablet DAILYCM MARY Administration Nutritional Formula (Lactose Free) 120 ml 02/19/23 12:00 Ensure Plus High Protein 120 Ml Liquid PO 4X/DAY [facility] Ondansetron HCl 4 mg 02/18/23 22:14 Ondansetron Odt 4 Mg Tablet PO Q8H PRN PRN NAUSEA/VOMITING Pantoprazole Sodium 40 mg 02/19/23 07:00 02/19/23 05:25 Pantoprazole Sodium 40 Mg Tablet PO 40 mg 0700,1700 [facility] Administration Senna/Docusate Sodium 1 tablet 02/19/23 06:00 02/19/23 05:25 Senna/Docusate Sodium 1 Tablet PO 1 tablet BID [facility] Administration Sodium Chloride 10 - 40 ml 02/18/23 16:40 0.9% Saline Lock 10 Ml Syringe IV UD PRN SALINE FLUSH Tamsulosin HCl 0.4 mg 02/19/23 08:30 02/19/23 08:03 Tamsulosin Hcl 0.4 Mg Capsule PO 0.4 mg DAILY@0830 [facility] Administration Tuberculin PPD 0.1 ml 02/26/23 10:00 Tuberculin,Purif.Prot.Deriv. 50 Tu/Ml Vial ID 02/26/23 10:01 X1 ONE Umeclidinium [place] 1 puff 02/19/23 06:00 02/19/23 05:23 Umeclidinium [place] Inhaler INHALATION 1 puff DAILY [facility] Administration Problem List (Last Reviewed 02/18/23 @ 22:[address] Jean Pérez MD) Chronic kidney disease, stage 3a (Chronic) Obstructive sleep apnea (Acute) Coronary artery disease (Acute) BPH (benign prostatic hyperplasia) (Acute) Bipolar disorder (Acute) Hypertension (Chronic) GERD (gastroesophageal reflux disease) (Acute) COPD (chronic obstructive pulmonary disease) (Chronic) Gastric necrosis (Acute) Upper gastrointestinal bleeding (Acute) Debility (Acute) Vital Signs Temp Pulse Resp BP Pulse Ox O2 Del Method O2 Flow Rate 98.9 F 88 22 H 135/70 H 96 Nasal Cannula 4 02/18/23 16:25 02/19/23 07:07 02/19/23 07:07 02/19/23 05:24 02/19/23 07:07 02/19/23 07:07 02/19/23 07:07 Oxygen Flow Rate (L/min) 4 Oxygen Delivery Method Nasal Cannula Weight: 73.17 kg Body Mass Index (BMI) 24.5 Sodium 145 mmol/L (136-145) 02/19/23 05:56 Potassium 3.8 mmol/L (3.5-5.1) 02/19/23 05:56 Chloride 112 mmol/L (98-107) H 02/19/23 05:56 Carbon Dioxide 23.0 mmol/L (21.0-32.0) 02/19/23 05:56 Anion Gap 10 (5-15) 02/19/23 05:56 BUN 44 mg/dL (7-18) H 02/19/23 05:56 Creatinine 1.62 mg/dL (0.70-1.30) H 02/19/23 05:56 Est GFR (MDRD) Af Amer 53 mL/min (>60) L 02/19/23 05:56 Est GFR (MDRD) Non-Af 44 mL/min (>60) L 02/19/23 05:56 BUN/Creatinine Ratio 27.2 RATIO (10-20) H 02/19/23 05:56 Glucose 99 mg/dL (74-106) 02/19/23 05:56 Assessment/Plan: 1. Pain: acetaminophen 1000mg PO Q6H PRN pain 1-10. Resident has not had any PRN doses. Please continue to monitor for increased pain and PRN usage. 2. Bowel: senna/docusate 1T PO BID and bisacodyl 10mg RC daily PRN constipation. Resident has not had any doses of bisacodyl. Last documented bowel movement today, 02/19/23. Please continue to monitor for constipation and PRN usage. 3. DVT prophylaxis: enoxaparin 40mg SC daily. Dose changed to 40mg due to CrCl >30mL/min. Please continue to monitor for S/S of bleeding/DVT, hemoglobin (last 9.7g/dL), platelets (last 407,000) and renal function. 4. Severe gastritis: pantoprazole 40mg PO BID. Please continue to monitor for S/S of gastritis and diarrhea (BEERs medication). 5. CAD: metoprolol tartrate 12.5mg PO BID and aspirin 81mg PO DAILYCM. Please continue to monitor HR (last 88), BP (last 135/70), S/S of bleeding and hemoglobin. 6. Pleural effusion: furosemide 40mg PO daily thru 02/22/23. Please continue to monitor potassium (last 3.8mmol/L), swelling, BP and renal function. 7. COPD: budesonide 1mg inhalation BID.RT, Incruse 1puff daily and Duoneb 3mL inhalation Q4H PRN SOB/wheezing. Resident has had 1 dose of Duoneb. Please continue to monitor for S/S of COPD/SOB/wheezing, S/S of thrush, HR and PRN usage. Please rinse mouth with water and spit after budesonide administration to prevent thrush. 8. Hyperlipidemia: atorvastatin 40mg PO QHS. Please continue to monitor lipid panel (last 10/21/22), LFTs (last 10/21/22) and muscle pain. 9. Insomnia: melatonin 3mg PO QHS. Please continue to monitor for excessive drowsiness. 10. BPH: tamsulosin 0.4mg PO daily. Please continue to monitor for S/S of BPH and BP. 11. Nausea: ondansetron ODT 4mg PO Q8H PRN nausea/vomiting. Resident has not had any doses. Please continue to monitor for nausea/vomiting and PRN usage. 12. Nutrition/vitamin D deficiency: multivitamin with minerals 1T PO DAILYCM and cholecalciferol 25mcg PO daily. Please continue to monitor vitamin D levels (last 04/18/22). Assessment/Plan for indications treated with psychotropic medications: 1. Bipolar disorder: bupropion XL 150mg PO daily and lamotrigine 25mg PO daily. Please see physician note regarding GDR. Please continue to monitor for suicidal ideation (black box warning), falls/fractures (BEERs medication), drowsiness and serous rash (black box warning). Medical chart and medication regimen reviewed. The following medication irregularities or issues were identified: None Date of Note:: 02/19/23
[2023-02-19] MEDS: Ensure Plus High Protein 120 ML LIQUID PO ×3 (12:10→21:44)
[2023-02-19] MEDS: Tuberculin,Purif.prot.deriv. 50 TU/ML Vial 0.1 ML ID (12:11)
[2023-02-19 14:26] VITALS: O2SAT 97
[2023-02-19 15:17] VITALS: BP 114/75; PULSE 76; RESP 16; TEMP 36.5; O2SAT 98
[2023-02-19 17:15] VITALS: BP 125/54; PULSE 80
[2023-02-19 18:52] VITALS: PULSE 76; RESP 28
[2023-02-19] MEDS: Atorvastatin Calcium 40 MG Tablet PO (21:46)
[2023-02-19] MEDS: MELATONIN 3 MG TABLET PO (21:46)
[2023-02-20 06:32] VITALS: BP 134/75; PULSE 78
[2023-02-20] MEDS: buPROPion (XL) 150 MG TABLET.XL PO (06:32)
[2023-02-20] MEDS: Metoprolol Tartrate 25 MG Tablet 12.5 MG PO ×2 (06:32→17:20)
[2023-02-20] MEDS: lamoTRIgine 25 MG Tablet PO (06:32)
[2023-02-20] MEDS: Senna/Docusate Sodium 1 Tablet PO (06:32)
[2023-02-20] MEDS: Pantoprazole Sodium 40 MG Tablet PO ×2 (06:32→17:20)
[2023-02-20] MEDS: Enoxaparin 40 MG/0.4 ML Syringe SC (06:32)
[2023-02-20] MEDS: Furosemide 40 MG Tablet PO (06:32)
[2023-02-20] MEDS: Umeclidinium Bromide Inhaler 1 PUFF INHALATION (06:33)
[2023-02-20] MEDS: Ensure Plus High Protein 120 ML LIQUID PO ×4 (06:33→21:41)
[2023-02-20 06:55] VITALS: PULSE 76; RESP 22; O2SAT 94
[2023-02-20] MEDS: Ipratropium/Albuterol Sulfate 3 ML AMPUL.NEB INHALATION (06:55)
[2023-02-20] MEDS: Budesonide Respules 0.5 MG/2 ML AMPUL.NEB. 1 MG INHALATION ×2 (06:55→19:25)
[2023-02-20 07:12] VITALS: BP 134/75; PULSE 78
[2023-02-20] MEDS: Aspirin E.C. 81 MG Tablet PO (07:51)
[2023-02-20] MEDS: Multivitamins,Ther W-Minerals Tablet 1 TABLET PO (07:51)
[2023-02-20] MEDS: Tamsulosin HCl 0.4 MG Capsule PO (07:51)
[2023-02-20] MEDS: Cholecalciferol (VIT D3) 25 MCG TABLET (1,000 UNITS) PO (07:51)
--- NOTE | 2023-02-20 14:19 | EKG12_ITS ---
Test Reason : CHEST PAIN Blood Pressure : / mmHG Vent. Rate : 079 BPM Atrial Rate : 079 BPM P-R Int : 124 ms QRS Dur : 092 ms QT Int : 404 ms P-R-T Axes : 000 064 055 degrees QTc Int : 463 ms Normal sinus rhythm Normal ECG When compared with ECG of 19-JAN-2021 18:24, No significant change was found Confirmed by RIRI DELAROSA, SHASTA ([id number]), editorial manager JOANA ENCISO ([id number]) on 02/25/2023 10:33:17 AM Referred By: ZINA Confirmed By:SHASTA MEENZES MD
--- NOTE | 2023-02-20 14:45 | NURSING ---
Addendum entered by Bharti Manuel 02/20/23 16:00: DR IZAGUIRRE AWARE OF EKG, EARLIER EPISODE OF CP. NO N.O. Original Note: R' C/O LEFT SIDED CHEST PAIN WHILE TOILETING IN THERAPY. RATED PAIN 3/10. MILD SOB. O2 IN PLAC E AT 2L VIA NC. VS OBTAINED: 114/63, 83 HR, 96% 2L VIA NC. STAT EKG ORDERED. CHEST PAIN QUICKLY RESOLVED ONCE LYING DOWN IN BED. CURRENTLY DENIES ANY CP/SOB. WILL CONT' TO MONITOR.
[2023-02-20 15:59] VITALS: BP 122/61; PULSE 79; RESP 16; TEMP 36.8; O2SAT 95
[2023-02-20 17:20] VITALS: PULSE 79
[2023-02-20] MEDS: Nystatin Powder 15gm Bottle 1 APPLIC TOPICAL (17:25)
[2023-02-20 19:25] VITALS: PULSE 72; RESP 24
[2023-02-20] MEDS: Atorvastatin Calcium 40 MG Tablet PO (21:38)
[2023-02-20] MEDS: MELATONIN 3 MG TABLET PO (21:38)
[2023-02-21] MEDS: Umeclidinium Bromide Inhaler 1 PUFF INHALATION (04:49)
[2023-02-21 04:50] VITALS: BP 115/52; PULSE 82
[2023-02-21] MEDS: Enoxaparin 40 MG/0.4 ML Syringe SC (04:50)
[2023-02-21] MEDS: buPROPion (XL) 150 MG TABLET.XL PO (04:50)
[2023-02-21] MEDS: Pantoprazole Sodium 40 MG Tablet PO ×2 (04:50→17:33)
[2023-02-21] MEDS: Senna/Docusate Sodium 1 Tablet PO ×2 (04:50→17:34)
[2023-02-21] MEDS: Metoprolol Tartrate 25 MG Tablet 12.5 MG PO ×2 (04:50→17:34)
[2023-02-21] MEDS: Furosemide 40 MG Tablet PO (04:54)
[2023-02-21] MEDS: lamoTRIgine 25 MG Tablet PO (04:54)
[2023-02-21] MEDS: Ensure Plus High Protein 120 ML LIQUID PO ×4 (05:00→20:59)
[2023-02-21 06:23] LABS: Hematocrit 29.5 % (40-54); Hemoglobin 9.4 g/dL (13.0-16.5)
[2023-02-21 08:00] VITALS: O2SAT 96
[2023-02-21] MEDS: Nystatin Powder 15gm Bottle 1 APPLIC TOPICAL ×2 (08:58→17:33)
[2023-02-21] MEDS: Aspirin E.C. 81 MG Tablet PO (08:58)
[2023-02-21] MEDS: Tamsulosin HCl 0.4 MG Capsule PO (08:59)
[2023-02-21] MEDS: Cholecalciferol (VIT D3) 25 MCG TABLET (1,000 UNITS) PO (08:59)
[2023-02-21] MEDS: Multivitamins,Ther W-Minerals Tablet 1 TABLET PO (08:59)
[2023-02-21] MEDS: Pneumococcal Vaccine 20 Valent 0.5 ML Syringe IM (09:05)
--- NOTE | 2023-02-21 14:26 | CASEMGMT ---
Social Work Received call from dtr, Tanika, with many questions on LOS, insurance, DC plans. Dtr also expressed having the responsibility of understanding all of the medical information, options, and explaining to pt's and pt's son. SW provided emotional support. Validated feelings. Empathized with situation. SW educated at length to Medicare benefit in SNF, SNF medicare guidelines, LTC options, financial liability, Medicaid eligibility for SNF with spouse in the community. Offered ongoing assistance with DC planning and options. Encouraged all family to be present for POC mtg for updates and recommendations. Dtr expressed realism to not being able to return home in this condition and aware of SNF need if he does not improve. Dtr expressed great appreciation for support and assistance from this worker. SW to continue to follow for ongoing assistance and support. Alyssa Lane, SHYLA KEATINGW
[2023-02-21 16:00] VITALS: BP 122/75; PULSE 90; RESP 18; TEMP 36.2; O2SAT 98
[2023-02-21 17:34] VITALS: PULSE 90
[2023-02-21] MEDS: Budesonide Respules 0.5 MG/2 ML AMPUL.NEB. 1 MG INHALATION (19:55)
[2023-02-21 19:56] VITALS: PULSE 69; RESP 18; O2SAT 96
[2023-02-21 20:46] VITALS: PULSE 76; RESP 18
[2023-02-21] MEDS: Atorvastatin Calcium 40 MG Tablet PO (21:00)
[2023-02-21] MEDS: Acetaminophen 500 MG Tablet 1000 MG PO (21:00)
[2023-02-21] MEDS: MELATONIN 3 MG TABLET PO (21:00)
[2023-02-22] MEDS: Umeclidinium Bromide Inhaler 1 PUFF INHALATION (05:27)
[2023-02-22 05:28] VITALS: BP 122/70; PULSE 76
[2023-02-22] MEDS: Furosemide 40 MG Tablet PO (05:28)
[2023-02-22] MEDS: lamoTRIgine 25 MG Tablet PO (05:28)
[2023-02-22] MEDS: Pantoprazole Sodium 40 MG Tablet PO ×2 (05:28→18:18)
[2023-02-22] MEDS: Metoprolol Tartrate 25 MG Tablet 12.5 MG PO ×2 (05:28→18:18)
[2023-02-22] MEDS: buPROPion (XL) 150 MG TABLET.XL PO (05:28)
[2023-02-22] MEDS: Enoxaparin 40 MG/0.4 ML Syringe SC (05:30)
[2023-02-22] MEDS: Ensure Plus High Protein 120 ML LIQUID PO ×4 (05:33→21:52)
[2023-02-22] MEDS: Nystatin Powder 15gm Bottle 1 APPLIC TOPICAL ×2 (05:48→18:25)
[2023-02-22] MEDS: Aspirin E.C. 81 MG Tablet PO (07:58)
[2023-02-22] MEDS: Multivitamins,Ther W-Minerals Tablet 1 TABLET PO (07:58)
[2023-02-22] MEDS: Tamsulosin HCl 0.4 MG Capsule PO (07:58)
[2023-02-22] MEDS: Cholecalciferol (VIT D3) 25 MCG TABLET (1,000 UNITS) PO (07:59)
[2023-02-22] MEDS: Budesonide Respules 0.5 MG/2 ML AMPUL.NEB. 1 MG INHALATION ×2 (08:30→20:21)
[2023-02-22 08:54] VITALS: PULSE 70; RESP 16; O2SAT 94
[2023-02-22 14:59] VITALS: BP 106/50; PULSE 65; RESP 24; TEMP 36.7; O2SAT 95
[2023-02-22 18:18] VITALS: BP 127/68; PULSE 86
[2023-02-22] MEDS: Senna/Docusate Sodium 1 Tablet PO (18:20)
[2023-02-22 20:05] VITALS: PULSE 78; RESP 18; O2SAT 97
[2023-02-22] MEDS: MELATONIN 3 MG TABLET PO (21:51)
[2023-02-22] MEDS: Atorvastatin Calcium 40 MG Tablet PO (21:51)
[2023-02-23] MEDS: lamoTRIgine 25 MG Tablet PO (05:15)
[2023-02-23] MEDS: Enoxaparin 40 MG/0.4 ML Syringe SC (05:15)
[2023-02-23] MEDS: Umeclidinium Bromide Inhaler 1 PUFF INHALATION (05:16)
[2023-02-23 05:18] VITALS: BP 110/57; PULSE 77
[2023-02-23] MEDS: Metoprolol Tartrate 25 MG Tablet 12.5 MG PO ×2 (05:18→17:34)
[2023-02-23] MEDS: buPROPion (XL) 150 MG TABLET.XL PO (05:20)
[2023-02-23] MEDS: Nystatin Powder 15gm Bottle 1 APPLIC TOPICAL ×2 (05:21→17:34)
[2023-02-23] MEDS: Senna/Docusate Sodium 1 Tablet PO (05:21)
[2023-02-23] MEDS: Ensure Plus High Protein 120 ML LIQUID PO ×4 (05:24→21:40)
[2023-02-23] MEDS: Aspirin 81 MG TAB.CHEW PO (09:07)
[2023-02-23] MEDS: Multivitamins,Ther W-Minerals Tablet 1 TABLET PO (09:07)
[2023-02-23] MEDS: Cholecalciferol (VIT D3) 25 MCG TABLET (1,000 UNITS) PO (09:07)
[2023-02-23] MEDS: Tamsulosin HCl 0.4 MG Capsule PO (09:07)
[2023-02-23] MEDS: Pantoprazole Sodium 40 MG Tablet PO ×2 (09:07→17:34)
[2023-02-23 14:48] VITALS: BP 109/55; PULSE 77; RESP 18; TEMP 36.3; O2SAT 98
[2023-02-23 17:34] VITALS: BP 121/62; PULSE 83
[2023-02-23 20:17] VITALS: PULSE 80; RESP 16
[2023-02-23 20:20] VITALS: PULSE 78; RESP 28
[2023-02-23] MEDS: Budesonide Respules 0.5 MG/2 ML AMPUL.NEB. 1 MG INHALATION (20:20)
[2023-02-23] MEDS: MELATONIN 3 MG TABLET PO (21:42)
[2023-02-23] MEDS: Atorvastatin Calcium 40 MG Tablet PO (21:42)
[2023-02-24] MEDS: lamoTRIgine 25 MG Tablet PO (05:15)
[2023-02-24] MEDS: Enoxaparin 40 MG/0.4 ML Syringe SC (05:15)
[2023-02-24] MEDS: Senna/Docusate Sodium 1 Tablet PO (05:15)
[2023-02-24] MEDS: Umeclidinium Bromide Inhaler 1 PUFF INHALATION (05:17)
[2023-02-24] MEDS: Nystatin Powder 15gm Bottle 1 APPLIC TOPICAL ×2 (05:18→17:15)
[2023-02-24 05:20] VITALS: BP 101/53; PULSE 82
[2023-02-24] MEDS: buPROPion (XL) 150 MG TABLET.XL PO (05:23)
[2023-02-24] MEDS: Ensure Plus High Protein 120 ML LIQUID PO ×4 (05:25→20:32)
[2023-02-24] MEDS: Pantoprazole Sodium 40 MG Tablet PO ×2 (07:55→17:16)
[2023-02-24] MEDS: Tamsulosin HCl 0.4 MG Capsule PO (07:56)
[2023-02-24] MEDS: Multivitamins,Ther W-Minerals Tablet 1 TABLET PO (07:56)
[2023-02-24] MEDS: Cholecalciferol (VIT D3) 25 MCG TABLET (1,000 UNITS) PO (07:56)
[2023-02-24] MEDS: Aspirin 81 MG TAB.CHEW PO (07:56)
[2023-02-24 08:38] VITALS: PULSE 92; RESP 24; O2SAT 94
[2023-02-24] MEDS: Budesonide Respules 0.5 MG/2 ML AMPUL.NEB. 1 MG INHALATION (08:40)
[2023-02-24 13:57] VITALS: BP 119/64; PULSE 78; RESP 18; TEMP 36.1; O2SAT 99
[2023-02-24 17:15] VITALS: PULSE 78
[2023-02-24] MEDS: Metoprolol Tartrate 25 MG Tablet 12.5 MG PO (17:15)
[2023-02-24] MEDS: Atorvastatin Calcium 40 MG Tablet PO (20:32)
[2023-02-24] MEDS: MELATONIN 3 MG TABLET PO (20:32)
[2023-02-25] VITALS (7 sets, daily range): BP systolic 109–134; BP diastolic 53–57; PULSE 70–84; RESP 16–18; TEMP 36.8; O2SAT 94–99
[2023-02-25] MEDS: Pantoprazole Sodium 40 MG Tablet PO ×2 (05:17→18:00)
[2023-02-25] MEDS: buPROPion (XL) 150 MG TABLET.XL PO (05:17)
[2023-02-25] MEDS: lamoTRIgine 25 MG Tablet PO (05:17)
[2023-02-25] MEDS: Senna/Docusate Sodium 1 Tablet PO ×2 (05:17→18:08)
[2023-02-25] MEDS: Metoprolol Tartrate 25 MG Tablet 12.5 MG PO ×2 (05:17→18:07)
[2023-02-25] MEDS: Nystatin Powder 15gm Bottle 1 APPLIC TOPICAL ×2 (05:18→18:08)
[2023-02-25] MEDS: Enoxaparin 40 MG/0.4 ML Syringe SC (05:18)
[2023-02-25] MEDS: Umeclidinium Bromide Inhaler 1 PUFF INHALATION (05:26)
[2023-02-25] MEDS: Budesonide Respules 0.5 MG/2 ML AMPUL.NEB. 1 MG INHALATION ×2 (07:29→19:30)
[2023-02-25] MEDS: Cholecalciferol (VIT D3) 25 MCG TABLET (1,000 UNITS) PO (08:23)
[2023-02-25] MEDS: Multivitamins,Ther W-Minerals Tablet 1 TABLET PO (08:23)
[2023-02-25] MEDS: Tamsulosin HCl 0.4 MG Capsule PO (08:23)
[2023-02-25] MEDS: Aspirin 81 MG TAB.CHEW PO (08:23)
[2023-02-25] MEDS: Ensure Plus High Protein 120 ML LIQUID PO ×3 (12:37→20:36)
--- NOTE | 2023-02-25 16:05 | CASEMGMT ---
Social Work BIMS (09/12) and PHQ-9 (01/23) completed for MDS assessment. Alyssa Lane MSW SECONDARY ENGLISH TEACHER
[2023-02-25] MEDS: MELATONIN 3 MG TABLET PO (20:33)
[2023-02-25] MEDS: Atorvastatin Calcium 40 MG Tablet PO (20:33)
[2023-02-26 05:30] LABS: Absolute Lymphocyte Count 1.33 X10^3/uL (0.83-4.51); Absolute Neutrophil Count 4.2 X10^3/uL (2.0-7.7); Basophil# 0.04 X10^3/uL; Basophil% 0.6 % (0-1); Eosinophil# 0.29 X10^3/uL; Eosinophils% 4.3 % (0-5); Hematocrit 29.9 % (40-54); Hemoglobin 9.9 g/dL (13.0-16.5); Lymphocyte # 1.33 X10^3/ul (0.83-4.51); Lymphocyte % 19.9 % (19-41); Mean Corp Hgb Conc 33.1 g/dL (32-36); Mean Corpuscular Hgb 32.1 pg (27.0-32.0); Mean Corpuscular Volume 97.1 fL (80-94); Mean Platelet Vol. 9.6 fl (6.2-12.0); Monocyte# 0.82 X10^3/uL; Monocyte% 12.2 % (0-10); NRBC Flagged by Analyzer 0 % (0-5); Neutrophil # 4.18 X10^3/uL (2.7-7.7); Neutrophil % 62.4 % (47-70); Platelet Count 284 K/mm3 (150-450); RBC Distribution Width CV 13.8 % (11.6-14.6); RBC Distribution Width SD 48.7 fl (35.1-43.9); Red Blood Count 3.08 M/mm3 (4.6-6.2); White Blood Count 6.7 K/mm3 (4.4-11.0)
[2023-02-26 05:40] VITALS: BP 117/67; PULSE 83
[2023-02-26] MEDS: buPROPion (XL) 150 MG TABLET.XL PO (05:40)
[2023-02-26] MEDS: Metoprolol Tartrate 25 MG Tablet 12.5 MG PO (05:40)
[2023-02-26] MEDS: lamoTRIgine 25 MG Tablet PO (05:40)
[2023-02-26] MEDS: Pantoprazole Sodium 40 MG Tablet PO ×2 (05:41→18:16)
[2023-02-26] MEDS: Senna/Docusate Sodium 1 Tablet PO (05:41)
[2023-02-26] MEDS: Enoxaparin 40 MG/0.4 ML Syringe SC (05:41)
[2023-02-26 05:49] LABS: Anion Gap 8 (5-15); BUN 21 mg/dL (7-18); BUN/Creat Ratio 14.3 RATIO (10-20); Calcium,Total 8.7 mg/dL (8.5-10.1); Chloride 107 mmol/L (98-107); Creatinine, Serum 1.47 mg/dL (0.70-1.30); EST Glomerular Filtration Rate 49 mL/min (>60); Est Glom Filt Rate - Afr Amer 59 mL/min (>60); Estimated Creatinine Clearance 38.78 ml/min; Glucose 103 mg/dL (74-106); Sodium Level 140 mmol/L (136-145)
[2023-02-26] MEDS: Ensure Plus High Protein 120 ML LIQUID PO ×4 (05:51→20:07)
[2023-02-26 07:20] VITALS: O2SAT 94
[2023-02-26] MEDS: Umeclidinium Bromide Inhaler 1 PUFF INHALATION (09:22)
[2023-02-26] MEDS: Tamsulosin HCl 0.4 MG Capsule PO (09:23)
[2023-02-26] MEDS: Multivitamins,Ther W-Minerals Tablet 1 TABLET PO (09:24)
[2023-02-26] MEDS: Cholecalciferol (VIT D3) 25 MCG TABLET (1,000 UNITS) PO (09:24)
[2023-02-26] MEDS: Aspirin 81 MG TAB.CHEW PO (09:24)
[2023-02-26] MEDS: Nystatin Powder 15gm Bottle 1 APPLIC TOPICAL ×2 (09:30→18:17)
--- NOTE | 2023-02-26 10:20 | CASEMGMT ---
Social Work IDT met with patient, , dtr and son for care plan meeting. Discussed patient's progress in PT/OT/ST/SN. Educated to Medicare benefit. Encouraged to contact secondary insurance to ensure copay coverage. IDT recommending 24/ care currently and according to family, pt was mod I prior with no concerns. Son stated he could build a ramp to enter if pt cannot complete steps. Inquired to family level needed to return home. Family all provided their insight. SW assisted with having a voice and express her needs/wishes for pt to return home. Concluded pt will need to be close to [place], possibly [place] for all tasks. Son does live home with pt/ and can have more flexible work schedule. Pt will continue to receive skilled services but SW broached topic of having an alternative DC plan. SW offered assistance with DC planning. Will continue to follow. SHYLA LeslieW
[2023-02-26] MEDS: Tuberculin,Purif.prot.deriv. 50 TU/ML Vial 0.1 ML ID (11:14)
[2023-02-26 13:22] VITALS: BP 93/61; PULSE 78; RESP 18; TEMP 36; O2SAT 99
[2023-02-26 18:15] VITALS: BP 93/61; PULSE 78
[2023-02-26] MEDS: Atorvastatin Calcium 40 MG Tablet PO (20:04)
[2023-02-26] MEDS: MELATONIN 3 MG TABLET PO (20:05)
[2023-02-27] MEDS: Enoxaparin 40 MG/0.4 ML Syringe SC (05:18)
[2023-02-27] MEDS: Pantoprazole Sodium 40 MG Tablet PO ×2 (05:18→17:24)
[2023-02-27] MEDS: buPROPion (XL) 150 MG TABLET.XL PO (05:18)
[2023-02-27] MEDS: lamoTRIgine 25 MG Tablet PO (05:18)
[2023-02-27 05:19] VITALS: BP 114/71; PULSE 94
[2023-02-27] MEDS: Metoprolol Tartrate 25 MG Tablet 12.5 MG PO ×2 (05:19→17:24)
[2023-02-27] MEDS: Senna/Docusate Sodium 1 Tablet PO (05:19)
[2023-02-27] MEDS: Umeclidinium Bromide Inhaler 1 PUFF INHALATION (05:23)
[2023-02-27] MEDS: Nystatin Powder 15gm Bottle 1 APPLIC TOPICAL ×2 (05:25→17:25)
[2023-02-27] MEDS: Budesonide Respules 0.5 MG/2 ML AMPUL.NEB. 1 MG INHALATION (07:19)
[2023-02-27] MEDS: Tamsulosin HCl 0.4 MG Capsule PO (08:53)
[2023-02-27] MEDS: Multivitamins,Ther W-Minerals Tablet 1 TABLET PO (08:54)
[2023-02-27] MEDS: Aspirin 81 MG TAB.CHEW PO (08:54)
[2023-02-27] MEDS: Cholecalciferol (VIT D3) 25 MCG TABLET (1,000 UNITS) PO (08:54)
[2023-02-27 09:34] VITALS: PULSE 76; RESP 18
[2023-02-27] MEDS: Ensure Plus High Protein 120 ML LIQUID PO ×2 (12:22→20:51)
[2023-02-27 13:52] VITALS: BP 98/57; PULSE 74; RESP 16; TEMP 36.6; O2SAT 98
[2023-02-27 17:24] VITALS: PULSE 84
[2023-02-27] MEDS: MELATONIN 3 MG TABLET PO (20:49)
[2023-02-27] MEDS: Atorvastatin Calcium 40 MG Tablet PO (20:49)
[2023-02-28 05:46] VITALS: BP 104/54; PULSE 72
[2023-02-28] MEDS: lamoTRIgine 25 MG Tablet PO (05:46)
[2023-02-28] MEDS: Metoprolol Tartrate 25 MG Tablet 12.5 MG PO ×2 (05:46→16:36)
[2023-02-28] MEDS: buPROPion (XL) 150 MG TABLET.XL PO (05:46)
[2023-02-28] MEDS: Enoxaparin 40 MG/0.4 ML Syringe SC (05:46)
[2023-02-28] MEDS: Pantoprazole Sodium 40 MG Tablet PO ×2 (05:46→16:33)
[2023-02-28] MEDS: Nystatin Powder 15gm Bottle 1 APPLIC TOPICAL ×2 (05:47→16:36)
[2023-02-28] MEDS: Umeclidinium Bromide Inhaler 1 PUFF INHALATION (05:47)
[2023-02-28] MEDS: Ensure Plus High Protein 120 ML LIQUID PO ×4 (05:49→21:49)
[2023-02-28] MEDS: Aspirin 81 MG TAB.CHEW PO (10:27)
[2023-02-28] MEDS: Tamsulosin HCl 0.4 MG Capsule PO (10:27)
[2023-02-28] MEDS: Multivitamins,Ther W-Minerals Tablet 1 TABLET PO (10:27)
[2023-02-28] MEDS: Cholecalciferol (VIT D3) 25 MCG TABLET (1,000 UNITS) PO (10:27)
[2023-02-28 12:18] VITALS: BMI 24.3
[2023-02-28 13:34] VITALS: BP 123/58; PULSE 72; RESP 14; TEMP 36.8; O2SAT 97
[2023-02-28 16:36] VITALS: PULSE 72
[2023-02-28] MEDS: Senna/Docusate Sodium 1 Tablet PO (16:36)
[2023-02-28] MEDS: MELATONIN 3 MG TABLET PO (21:47)
[2023-02-28] MEDS: Atorvastatin Calcium 40 MG Tablet PO (21:47)
[2023-03-01] MEDS: Ensure Plus High Protein 120 ML LIQUID PO ×4 (04:55→21:01)
[2023-03-01] MEDS: Umeclidinium Bromide Inhaler 1 PUFF INHALATION (04:55)
[2023-03-01 04:56] VITALS: BP 104/64; PULSE 83
[2023-03-01] MEDS: lamoTRIgine 25 MG Tablet PO (04:56)
[2023-03-01] MEDS: Metoprolol Tartrate 25 MG Tablet 12.5 MG PO ×2 (04:56→17:37)
[2023-03-01] MEDS: Pantoprazole Sodium 40 MG Tablet PO ×2 (04:59→17:37)
[2023-03-01] MEDS: buPROPion (XL) 150 MG TABLET.XL PO (04:59)
[2023-03-01] MEDS: Nystatin Powder 15gm Bottle 1 APPLIC TOPICAL ×2 (05:00→17:41)
[2023-03-01] MEDS: Enoxaparin 40 MG/0.4 ML Syringe SC (05:00)
[2023-03-01] MEDS: Aspirin 81 MG TAB.CHEW PO (09:08)
[2023-03-01] MEDS: Tamsulosin HCl 0.4 MG Capsule PO (09:08)
[2023-03-01] MEDS: Multivitamins,Ther W-Minerals Tablet 1 TABLET PO (09:08)
[2023-03-01] MEDS: Cholecalciferol (VIT D3) 25 MCG TABLET (1,000 UNITS) PO (09:08)
[2023-03-01 15:48] VITALS: BP 113/63; PULSE 72; RESP 16; TEMP 36.5; O2SAT 96
[2023-03-01 17:37] VITALS: PULSE 72
[2023-03-01] MEDS: MELATONIN 3 MG TABLET PO (21:00)
[2023-03-01] MEDS: Atorvastatin Calcium 40 MG Tablet PO (21:00)
[2023-03-01 21:03] VITALS: PULSE 74; RESP 16; O2SAT 98
[2023-03-02] MEDS: Ensure Plus High Protein 120 ML LIQUID PO ×4 (05:11→21:26)
[2023-03-02] MEDS: lamoTRIgine 25 MG Tablet PO (05:11)
[2023-03-02] MEDS: Enoxaparin 40 MG/0.4 ML Syringe SC (05:12)
[2023-03-02] MEDS: buPROPion (XL) 150 MG TABLET.XL PO (05:12)
[2023-03-02] MEDS: Nystatin Powder 15gm Bottle 1 APPLIC TOPICAL ×2 (05:12→18:34)
[2023-03-02] MEDS: Senna/Docusate Sodium 1 Tablet PO (05:12)
[2023-03-02 05:13] VITALS: BP 108/57; PULSE 78
[2023-03-02] MEDS: Metoprolol Tartrate 25 MG Tablet 12.5 MG PO ×2 (05:13→18:30)
[2023-03-02] MEDS: Umeclidinium Bromide Inhaler 1 PUFF INHALATION (05:13)
[2023-03-02 10:00] VITALS: RESP 16
[2023-03-02] MEDS: Multivitamins,Ther W-Minerals Tablet 1 TABLET PO (12:16)
[2023-03-02] MEDS: Tamsulosin HCl 0.4 MG Capsule PO (12:16)
[2023-03-02] MEDS: Cholecalciferol (VIT D3) 25 MCG TABLET (1,000 UNITS) PO (12:16)
[2023-03-02] MEDS: Pantoprazole Sodium 40 MG Tablet PO ×2 (12:16→18:34)
[2023-03-02] MEDS: Aspirin 81 MG TAB.CHEW PO (12:16)
[2023-03-02 16:00] VITALS: BP 133/56; PULSE 77; RESP 16; TEMP 36.8; O2SAT 96
[2023-03-02 18:30] VITALS: BP 133/56; PULSE 77
[2023-03-02] MEDS: MELATONIN 3 MG TABLET PO (21:26)
[2023-03-02] MEDS: Acetaminophen 500 MG Tablet 1000 MG PO (21:26)
[2023-03-02] MEDS: Atorvastatin Calcium 40 MG Tablet PO (21:26)
[2023-03-03] MEDS: Ensure Plus High Protein 120 ML LIQUID PO ×2 (05:21→18:01)
[2023-03-03] MEDS: Acetaminophen 500 MG Tablet 1000 MG PO (05:21)
[2023-03-03] MEDS: Umeclidinium Bromide Inhaler 1 PUFF INHALATION (05:21)
[2023-03-03] MEDS: lamoTRIgine 25 MG Tablet PO (05:22)
[2023-03-03] MEDS: Nystatin Powder 15gm Bottle 1 APPLIC TOPICAL ×2 (05:22→18:01)
[2023-03-03] MEDS: buPROPion (XL) 150 MG TABLET.XL PO (05:22)
[2023-03-03] MEDS: Enoxaparin 40 MG/0.4 ML Syringe SC (05:22)
[2023-03-03 05:25] VITALS: BP 92/61; PULSE 78
[2023-03-03] MEDS: Aspirin 81 MG TAB.CHEW PO (08:15)
[2023-03-03] MEDS: Pantoprazole Sodium 40 MG Tablet PO ×2 (08:15→18:01)
[2023-03-03] MEDS: Multivitamins,Ther W-Minerals Tablet 1 TABLET PO (08:16)
[2023-03-03] MEDS: Cholecalciferol (VIT D3) 25 MCG TABLET (1,000 UNITS) PO (08:16)
[2023-03-03] MEDS: Tamsulosin HCl 0.4 MG Capsule PO (08:16)
--- NOTE | 2023-03-03 09:13 | NURSING ---
Contract Assistant Note; Activity Asset: Niki Galeano is independent in his choice of daily activities whoever needs some assistance with his tv and reminders. He has family in daily and when not in therapy he prefers to rest most of the day do to his decline in health. He will read his daily and the news paper and visit with therapy dog when awake. Staff will continue to offer activities and respect his right to say no. Family bring stuff for him as well daily.
--- NOTE | 2023-03-03 09:57 | MDS.RN ---
Information for the mds was obtained from review of the clinical record, interview of resident, staff, and direct observation of resident's care.
[2023-03-03] MEDS: Ondansetron ODT 4 MG Tablet PO (12:20)
[2023-03-03 13:15] VITALS: BP 109/50; PULSE 81; RESP 18; TEMP 36.8; O2SAT 97
[2023-03-03 18:01] VITALS: BP 112/82; PULSE 86
[2023-03-03] MEDS: Metoprolol Tartrate 25 MG Tablet 12.5 MG PO (18:01)
[2023-03-03] MEDS: Senna/Docusate Sodium 1 Tablet PO (18:01)
[2023-03-03 20:59] VITALS: PULSE 90; RESP 16; O2SAT 97
[2023-03-03] MEDS: Atorvastatin Calcium 40 MG Tablet PO (21:11)
[2023-03-03] MEDS: Doxepin Hydrochloride 10 MG Capsule PO (21:12)
[2023-03-04] MEDS: lamoTRIgine 25 MG Tablet PO (05:26)
[2023-03-04] MEDS: Enoxaparin 40 MG/0.4 ML Syringe SC (05:26)
[2023-03-04 05:27] VITALS: BP 138/70; PULSE 72
[2023-03-04] MEDS: Pantoprazole Sodium 40 MG Tablet PO ×2 (05:27→18:08)
[2023-03-04] MEDS: Metoprolol Tartrate 25 MG Tablet 12.5 MG PO ×2 (05:27→18:07)
[2023-03-04] MEDS: buPROPion (XL) 150 MG TABLET.XL PO (05:27)
[2023-03-04] MEDS: Senna/Docusate Sodium 1 Tablet PO ×2 (05:27→18:08)
[2023-03-04] MEDS: Nystatin Powder 15gm Bottle 1 APPLIC TOPICAL ×2 (05:28→18:12)
[2023-03-04] MEDS: Umeclidinium Bromide Inhaler 1 PUFF INHALATION (05:36)
[2023-03-04] MEDS: Aspirin 81 MG TAB.CHEW PO (08:42)
[2023-03-04] MEDS: Tamsulosin HCl 0.4 MG Capsule PO (08:42)
[2023-03-04] MEDS: Cholecalciferol (VIT D3) 25 MCG TABLET (1,000 UNITS) PO (08:42)
[2023-03-04 11:34] VITALS: BMI 24.3
[2023-03-04] MEDS: Ensure Plus High Protein 120 ML LIQUID PO ×3 (12:44→21:33)
[2023-03-04 13:43] VITALS: O2SAT 96
[2023-03-04 15:29] VITALS: BP 107/54; PULSE 51; RESP 17; TEMP 37.2; O2SAT 93
[2023-03-04 18:07] VITALS: BP 110/52; PULSE 78
[2023-03-04] MEDS: Atorvastatin Calcium 40 MG Tablet PO (21:38)
[2023-03-04] MEDS: Doxepin Hydrochloride 10 MG Capsule PO (21:38)
[2023-03-05] MEDS: Ensure Plus High Protein 120 ML LIQUID PO ×4 (05:10→21:30)
[2023-03-05] MEDS: Umeclidinium Bromide Inhaler 1 PUFF INHALATION (05:12)
[2023-03-05] MEDS: Enoxaparin 40 MG/0.4 ML Syringe SC (05:13)
[2023-03-05 05:14] VITALS: BP 118/69; PULSE 77
[2023-03-05] MEDS: buPROPion (XL) 150 MG TABLET.XL PO (05:14)
[2023-03-05] MEDS: Metoprolol Tartrate 25 MG Tablet 12.5 MG PO ×2 (05:14→18:00)
[2023-03-05] MEDS: Nystatin Powder 15gm Bottle 1 APPLIC TOPICAL ×2 (05:14→17:59)
[2023-03-05] MEDS: lamoTRIgine 25 MG Tablet PO (05:14)
[2023-03-05] MEDS: Senna/Docusate Sodium 1 Tablet PO ×2 (05:14→18:00)
[2023-03-05 05:50] LABS: Absolute Lymphocyte Count 1.29 X10^3/uL (0.83-4.51); Absolute Neutrophil Count 5.8 X10^3/uL (2.0-7.7); Basophil# 0.05 X10^3/uL; Basophil% 0.6 % (0-1); Eosinophil# 0.23 X10^3/uL; Eosinophils% 2.8 % (0-5); Hematocrit 30.6 % (40-54); Hemoglobin 9.8 g/dL (13.0-16.5); Lymphocyte # 1.29 X10^3/ul (0.83-4.51); Lymphocyte % 15.6 % (19-41); Mean Corpuscular Hgb 31.8 pg (27.0-32.0); Mean Corpuscular Volume 99.4 fL (80-94); Mean Platelet Vol. 9.6 fl (6.2-12.0); Monocyte# 0.91 X10^3/uL; NRBC Flagged by Analyzer 0 % (0-5); Neutrophil # 5.79 X10^3/uL (2.7-7.7); Neutrophil % 69.8 % (47-70); Platelet Count 187 K/mm3 (150-450); RBC Distribution Width CV 14.2 % (11.6-14.6); RBC Distribution Width SD 50.7 fl (35.1-43.9); Red Blood Count 3.08 M/mm3 (4.6-6.2); White Blood Count 8.3 K/mm3 (4.4-11.0)
[2023-03-05 06:29] LABS: Anion Gap 3 (5-15); BUN 21 mg/dL (7-18); BUN/Creat Ratio 14.6 RATIO (10-20); Calcium,Total 8.6 mg/dL (8.5-10.1); Chloride 108 mmol/L (98-107); Creatinine, Serum 1.44 mg/dL (0.70-1.30); EST Glomerular Filtration Rate 50 mL/min (>60); Est Glom Filt Rate - Afr Amer 61 mL/min (>60); Estimated Creatinine Clearance 39.58 ml/min; Glucose 96 mg/dL (74-106); Potassium 4.5 mmol/L (3.5-5.1); Sodium Level 137 mmol/L (136-145)
[2023-03-05] MEDS: Pantoprazole Sodium 40 MG Tablet PO ×2 (07:30→18:00)
[2023-03-05] MEDS: Aspirin 81 MG TAB.CHEW PO (09:00)
[2023-03-05] MEDS: Tamsulosin HCl 0.4 MG Capsule PO (09:00)
[2023-03-05] MEDS: Cholecalciferol (VIT D3) 25 MCG TABLET (1,000 UNITS) PO (09:00)
[2023-03-05 10:00] VITALS: PULSE 78; RESP 16; O2SAT 94
[2023-03-05 10:54] VITALS: O2SAT 98
[2023-03-05 16:00] VITALS: BP 116/62; PULSE 75; RESP 16; TEMP 36.4; O2SAT 97
[2023-03-05 18:00] VITALS: BP 118/64; PULSE 73
[2023-03-05] MEDS: Ondansetron ODT 4 MG Tablet PO (18:35)
[2023-03-05 21:05] VITALS: PULSE 108; RESP 18; O2SAT 99
[2023-03-05] MEDS: Ipratropium/Albuterol Sulfate 3 ML AMPUL.NEB INHALATION (21:05)
--- NOTE | 2023-03-05 21:14 | CPS ---
pt does not leave mask on-no resp distress noted at this time
[2023-03-05] MEDS: Mirtazapine 15 MG Tablet 7.5 MG PO (21:30)
[2023-03-05] MEDS: Doxepin Hydrochloride 10 MG Capsule PO (21:30)
[2023-03-05] MEDS: Atorvastatin Calcium 40 MG Tablet PO (21:30)
[2023-03-06 05:05] VITALS: BP 96/46; PULSE 80
[2023-03-06] MEDS: Ensure Plus High Protein 120 ML LIQUID PO ×4 (05:07→20:48)
[2023-03-06] MEDS: Senna/Docusate Sodium 1 Tablet PO ×2 (05:09→17:15)
[2023-03-06] MEDS: Enoxaparin 40 MG/0.4 ML Syringe SC (05:09)
[2023-03-06] MEDS: buPROPion (XL) 150 MG TABLET.XL PO (05:09)
[2023-03-06] MEDS: Umeclidinium Bromide Inhaler 1 PUFF INHALATION (05:09)
[2023-03-06] MEDS: lamoTRIgine 25 MG Tablet PO (05:09)
[2023-03-06 05:16] VITALS: BP 96/46; PULSE 80
[2023-03-06] MEDS: Nystatin Powder 15gm Bottle 1 APPLIC TOPICAL ×2 (05:16→18:29)
[2023-03-06 06:24] VITALS: O2SAT 96
[2023-03-06] MEDS: Aspirin 81 MG TAB.CHEW PO (08:59)
[2023-03-06] MEDS: Tamsulosin HCl 0.4 MG Capsule PO (08:59)
[2023-03-06] MEDS: Pantoprazole Sodium 40 MG Tablet PO ×2 (08:59→17:15)
[2023-03-06] MEDS: Cholecalciferol (VIT D3) 25 MCG TABLET (1,000 UNITS) PO (08:59)
[2023-03-06 15:04] VITALS: BP 114/53; PULSE 85; RESP 18; TEMP 36.3; O2SAT 93
--- NOTE | 2023-03-06 15:24 | CHAPLAIN ---
Type of Pastoral Visit _x__ Initial Visit ___ Follow-up Visit ___ On-call Visit ___ General Patient Visit ___ Spiritual Assessment ___ Family Conference ___ Bereavement ___ Rapid Response ___ Code Blue ___ Other (describe below) Pastoral Care Referral From _x__ Patient ___ Family ___ Nurse ___ Physician ___ Rn Primary Care ___ Resident Service Coordinator ___ Other (describe below) Sacrament/Intervention _x__ Active listening ___ Anointing ___ Adventism ___ Bereavement ___ Communion ___ Anu exploration ___ ___ Life review _x__ Prayer ___ Reconciliation ___ Sacrament of Sick _x__ Supportive presence ___ Wedding ___ Other (describe below) Pastoral Comments
[2023-03-06 16:09] VITALS: O2SAT 100
[2023-03-06 17:15] VITALS: BP 107/68; PULSE 80
[2023-03-06] MEDS: Metoprolol Tartrate 25 MG Tablet 12.5 MG PO (17:15)
[2023-03-06] MEDS: Mirtazapine 15 MG Tablet 7.5 MG PO (20:48)
[2023-03-06] MEDS: Atorvastatin Calcium 40 MG Tablet PO (20:52)
[2023-03-06] MEDS: Doxepin Hydrochloride 10 MG Capsule PO (20:52)
[2023-03-07 05:54] LABS: Hematocrit 28.5 % (40-54); Hemoglobin 9.1 g/dL (13.0-16.5)
[2023-03-07 06:17] VITALS: BP 121/69; PULSE 100
[2023-03-07] MEDS: Metoprolol Tartrate 25 MG Tablet 12.5 MG PO ×2 (06:17→17:44)
[2023-03-07] MEDS: Umeclidinium Bromide Inhaler 1 PUFF INHALATION (06:17)
[2023-03-07] MEDS: Enoxaparin 40 MG/0.4 ML Syringe SC (06:17)
[2023-03-07] MEDS: lamoTRIgine 25 MG Tablet PO (06:17)
[2023-03-07] MEDS: buPROPion (XL) 150 MG TABLET.XL PO (06:17)
[2023-03-07] MEDS: Pantoprazole Sodium 40 MG Tablet PO ×2 (06:18→17:44)
[2023-03-07] MEDS: Nystatin Powder 15gm Bottle 1 APPLIC TOPICAL ×2 (06:18→17:46)
[2023-03-07] MEDS: Cholecalciferol (VIT D3) 25 MCG TABLET (1,000 UNITS) PO (08:45)
[2023-03-07] MEDS: Tamsulosin HCl 0.4 MG Capsule PO (08:45)
[2023-03-07] MEDS: Aspirin 81 MG TAB.CHEW PO (08:45)
[2023-03-07] MEDS: Ensure Plus High Protein 120 ML LIQUID PO ×2 (12:04→22:18)
[2023-03-07 16:00] VITALS: BP 138/109; PULSE 71; RESP 18; TEMP 36.7; O2SAT 96
[2023-03-07 17:44] VITALS: BP 137/100; PULSE 70
[2023-03-07] MEDS: Mirtazapine 15 MG Tablet 7.5 MG PO (22:16)
[2023-03-07] MEDS: Atorvastatin Calcium 40 MG Tablet PO (22:16)
[2023-03-07] MEDS: Doxepin Hydrochloride 10 MG Capsule PO (22:17)
[2023-03-08 06:00] VITALS: BP 111/48; PULSE 79
[2023-03-08] MEDS: Metoprolol Tartrate 25 MG Tablet 12.5 MG PO ×2 (06:00→16:39)
[2023-03-08] MEDS: Ensure Plus High Protein 120 ML LIQUID PO ×4 (06:03→20:53)
[2023-03-08] MEDS: Pantoprazole Sodium 40 MG Tablet PO ×2 (06:04→16:39)
[2023-03-08] MEDS: lamoTRIgine 25 MG Tablet PO (06:04)
[2023-03-08] MEDS: buPROPion (XL) 150 MG TABLET.XL PO (06:06)
[2023-03-08] MEDS: Nystatin Powder 15gm Bottle 1 APPLIC TOPICAL ×2 (06:06→16:40)
[2023-03-08] MEDS: Umeclidinium Bromide Inhaler 1 PUFF INHALATION (06:06)
[2023-03-08] MEDS: Senna/Docusate Sodium 1 Tablet PO ×2 (06:06→16:40)
[2023-03-08 06:59] LABS: Hematocrit 29.2 % (40-54); Hemoglobin 9.1 g/dL (13.0-16.5)
[2023-03-08] MEDS: Tamsulosin HCl 0.4 MG Capsule PO (10:28)
[2023-03-08] MEDS: Cholecalciferol (VIT D3) 25 MCG TABLET (1,000 UNITS) PO (10:28)
[2023-03-08] MEDS: Aspirin 81 MG TAB.CHEW PO (10:29)
[2023-03-08 13:07] VITALS: BP 117/50; PULSE 73; RESP 18; TEMP 36.6; O2SAT 96
[2023-03-08 16:39] VITALS: PULSE 73
[2023-03-08 20:00] VITALS: RESP 16
[2023-03-08] MEDS: Mirtazapine 15 MG Tablet 7.5 MG PO (20:54)
[2023-03-08] MEDS: Doxepin Hydrochloride 10 MG Capsule PO (20:54)
[2023-03-08] MEDS: Atorvastatin Calcium 40 MG Tablet PO (20:54)
[2023-03-09] MEDS: Senna/Docusate Sodium 1 Tablet PO ×2 (05:03→16:26)
[2023-03-09] MEDS: buPROPion (XL) 150 MG TABLET.XL PO (05:03)
[2023-03-09] MEDS: Umeclidinium Bromide Inhaler 1 PUFF INHALATION (05:03)
[2023-03-09] MEDS: Pantoprazole Sodium 40 MG Tablet PO ×2 (05:03→16:25)
[2023-03-09] MEDS: lamoTRIgine 25 MG Tablet PO (05:03)
[2023-03-09] MEDS: Nystatin Powder 15gm Bottle 1 APPLIC TOPICAL ×2 (05:04→16:25)
[2023-03-09 05:05] VITALS: BP 139/66; PULSE 91
[2023-03-09] MEDS: Ensure Plus High Protein 120 ML LIQUID PO ×4 (05:05→20:37)
[2023-03-09] MEDS: Metoprolol Tartrate 25 MG Tablet 12.5 MG PO ×2 (05:05→16:28)
[2023-03-09 07:17] VITALS: O2SAT 98
[2023-03-09] MEDS: Tamsulosin HCl 0.4 MG Capsule PO (08:15)
[2023-03-09] MEDS: Aspirin 81 MG TAB.CHEW PO (08:15)
[2023-03-09] MEDS: Cholecalciferol (VIT D3) 25 MCG TABLET (1,000 UNITS) PO (08:16)
[2023-03-09 14:26] VITALS: BP 121/60; PULSE 70; RESP 16; TEMP 36.6; O2SAT 98
[2023-03-09 16:28] VITALS: PULSE 70
[2023-03-09] MEDS: Atorvastatin Calcium 40 MG Tablet PO (20:38)
[2023-03-09] MEDS: Doxepin Hydrochloride 10 MG Capsule PO (20:38)
[2023-03-09] MEDS: Mirtazapine 15 MG Tablet 7.5 MG PO (20:38)
[2023-03-10 06:04] LABS: Hematocrit 29.8 % (40-54); Hemoglobin 9.7 g/dL (13.0-16.5)
[2023-03-10] MEDS: Pantoprazole Sodium 40 MG Tablet PO ×2 (06:45→18:20)
[2023-03-10] MEDS: Umeclidinium Bromide Inhaler 1 PUFF INHALATION (06:45)
[2023-03-10] MEDS: Ensure Plus High Protein 120 ML LIQUID PO ×2 (06:45→22:28)
[2023-03-10] MEDS: buPROPion (XL) 150 MG TABLET.XL PO (06:45)
[2023-03-10] MEDS: lamoTRIgine 25 MG Tablet PO (06:46)
[2023-03-10 06:50] VITALS: BP 111/47; PULSE 76
[2023-03-10] MEDS: Metoprolol Tartrate 25 MG Tablet 12.5 MG PO ×2 (06:50→18:20)
[2023-03-10] MEDS: Nystatin Powder 15gm Bottle 1 APPLIC TOPICAL ×2 (06:56→18:21)
[2023-03-10] MEDS: Cholecalciferol (VIT D3) 25 MCG TABLET (1,000 UNITS) PO (08:05)
[2023-03-10] MEDS: Aspirin 81 MG TAB.CHEW PO (08:05)
[2023-03-10] MEDS: Tamsulosin HCl 0.4 MG Capsule PO (08:05)
[2023-03-10] MEDS: Ondansetron ODT 4 MG Tablet PO (08:26)
--- NOTE | 2023-03-10 08:29 | NURSING ---
Patient had episode of emesis in dining area. Zoan provided. Will monitor.
[2023-03-10 10:05] VITALS: PULSE 72; O2SAT 94
[2023-03-10 18:14] VITALS: BP 115/70; PULSE 77; RESP 18; TEMP 36.2; O2SAT 97
[2023-03-10 18:20] VITALS: PULSE 77
[2023-03-10] MEDS: Senna/Docusate Sodium 1 Tablet PO (18:21)
[2023-03-10] MEDS: Mirtazapine 15 MG Tablet 7.5 MG PO (22:28)
[2023-03-10] MEDS: traZODone 100 MG Tablet PO (22:28)
[2023-03-10] MEDS: Atorvastatin Calcium 40 MG Tablet PO (22:28)
[2023-03-11] MEDS: Ensure Plus High Protein 120 ML LIQUID PO ×2 (06:07→11:59)
[2023-03-11] MEDS: Pantoprazole Sodium 40 MG Tablet PO ×2 (06:08→18:11)
[2023-03-11 06:09] VITALS: BP 111/52; PULSE 82
[2023-03-11] MEDS: Metoprolol Tartrate 25 MG Tablet 12.5 MG PO ×2 (06:09→18:11)
[2023-03-11] MEDS: buPROPion (XL) 150 MG TABLET.XL PO (06:09)
[2023-03-11] MEDS: lamoTRIgine 25 MG Tablet PO (06:09)
[2023-03-11] MEDS: Senna/Docusate Sodium 1 Tablet PO ×2 (06:10→18:11)
[2023-03-11] MEDS: Umeclidinium Bromide Inhaler 1 PUFF INHALATION (06:10)
[2023-03-11] MEDS: Nystatin Powder 15gm Bottle 1 APPLIC TOPICAL ×2 (06:10→22:42)
[2023-03-11] MEDS: Acetaminophen 500 MG Tablet 1000 MG PO (06:15)
[2023-03-11] MEDS: Cholecalciferol (VIT D3) 25 MCG TABLET (1,000 UNITS) PO (08:53)
[2023-03-11] MEDS: Tamsulosin HCl 0.4 MG Capsule PO (08:53)
[2023-03-11] MEDS: Aspirin 81 MG TAB.CHEW PO (08:53)
[2023-03-11 11:30] VITALS: BMI 24.3
[2023-03-11 14:45] VITALS: BP 138/103; PULSE 106; RESP 16; TEMP 36.3; O2SAT 97
[2023-03-11 18:11] VITALS: BP 118/53; PULSE 78
[2023-03-11 18:15] VITALS: BP 118/53; PULSE 78
[2023-03-11] MEDS: traZODone 100 MG Tablet PO (22:44)
[2023-03-11] MEDS: Mirtazapine 15 MG Tablet 7.5 MG PO (22:44)
[2023-03-11] MEDS: Atorvastatin Calcium 40 MG Tablet PO (22:44)
[2023-03-12 05:46] LABS: Absolute Lymphocyte Count 1.34 X10^3/uL (0.83-4.51); Absolute Neutrophil Count 4.9 X10^3/uL (2.0-7.7); Basophil# 0.04 X10^3/uL; Basophil% 0.5 % (0-1); Eosinophil# 0.27 X10^3/uL; Eosinophils% 3.7 % (0-5); Hematocrit 26.5 % (40-54); Hemoglobin 8.6 g/dL (13.0-16.5); Lymphocyte # 1.34 X10^3/ul (0.83-4.51); Lymphocyte % 18.3 % (19-41); Mean Corp Hgb Conc 32.5 g/dL (32-36); Mean Corpuscular Hgb 32.1 pg (27.0-32.0); Mean Corpuscular Volume 98.9 fL (80-94); Mean Platelet Vol. 9.2 fl (6.2-12.0); Monocyte# 0.76 X10^3/uL; Monocyte% 10.4 % (0-10); NRBC Flagged by Analyzer 0 % (0-5); Neutrophil # 4.89 X10^3/uL (2.7-7.7); Neutrophil % 66.7 % (47-70); Platelet Count 202 K/mm3 (150-450); RBC Distribution Width CV 14.4 % (11.6-14.6); RBC Distribution Width SD 51.8 fl (35.1-43.9); Red Blood Count 2.68 M/mm3 (4.6-6.2); White Blood Count 7.3 K/mm3 (4.4-11.0)
[2023-03-12 05:55] VITALS: BP 119/71; PULSE 102
[2023-03-12] MEDS: Metoprolol Tartrate 25 MG Tablet 12.5 MG PO ×2 (05:55→18:15)
[2023-03-12] MEDS: Pantoprazole Sodium 40 MG Tablet PO ×2 (05:55→18:14)
[2023-03-12] MEDS: Senna/Docusate Sodium 1 Tablet PO ×2 (05:55→18:14)
[2023-03-12] MEDS: lamoTRIgine 25 MG Tablet PO (05:55)
[2023-03-12] MEDS: Ensure Plus High Protein 120 ML LIQUID PO ×4 (05:56→22:36)
[2023-03-12] MEDS: buPROPion (XL) 150 MG TABLET.XL PO (05:56)
[2023-03-12] MEDS: Umeclidinium Bromide Inhaler 1 PUFF INHALATION (05:57)
[2023-03-12] MEDS: Nystatin Powder 15gm Bottle 1 APPLIC TOPICAL ×2 (05:57→18:15)
[2023-03-12] MEDS: Carbidopa/Levodopa 25/100 Tablet PO ×3 (06:01→18:14)
[2023-03-12] MEDS: Acetaminophen 500 MG Tablet 1000 MG PO (06:01)
[2023-03-12 06:18] LABS: Anion Gap 5 (5-15); BUN 28 mg/dL (7-18); BUN/Creat Ratio 18.1 RATIO (10-20); Calcium,Total 8.3 mg/dL (8.5-10.1); Chloride 108 mmol/L (98-107); Creatinine, Serum 1.55 mg/dL (0.70-1.30); EST Glomerular Filtration Rate 46 mL/min (>60); Est Glom Filt Rate - Afr Amer 56 mL/min (>60); Estimated Creatinine Clearance 36.77 ml/min; Glucose 97 mg/dL (74-106); Sodium Level 139 mmol/L (136-145)
[2023-03-12] MEDS: Cholecalciferol (VIT D3) 25 MCG TABLET (1,000 UNITS) PO (08:59)
[2023-03-12] MEDS: Tamsulosin HCl 0.4 MG Capsule PO (08:59)
[2023-03-12] MEDS: Aspirin 81 MG TAB.CHEW PO (08:59)
[2023-03-12] MEDS: Iron Polysaccharide Complex 150 MG CAPSULE PO (10:10)
[2023-03-12 14:32] VITALS: BP 132/98; PULSE 101; RESP 16; TEMP 36.1; O2SAT 97
[2023-03-12 18:15] VITALS: BP 104/49; PULSE 72
[2023-03-12] MEDS: Atorvastatin Calcium 40 MG Tablet PO (22:36)
[2023-03-12] MEDS: Mirtazapine 15 MG Tablet 7.5 MG PO (22:36)
[2023-03-12] MEDS: traZODone 100 MG Tablet PO (22:36)
[2023-03-12 23:26] VITALS: PULSE 88; RESP 20; O2SAT 97
[2023-03-13] MEDS: Pantoprazole Sodium 40 MG Tablet PO ×2 (06:41→18:28)
[2023-03-13] MEDS: Senna/Docusate Sodium 1 Tablet PO ×2 (06:41→18:27)
[2023-03-13] MEDS: Umeclidinium Bromide Inhaler 1 PUFF INHALATION (06:41)
[2023-03-13] MEDS: lamoTRIgine 25 MG Tablet PO (06:41)
[2023-03-13] MEDS: Carbidopa/Levodopa 25/100 Tablet PO ×3 (06:41→18:29)
[2023-03-13 06:42] VITALS: BP 101/57; PULSE 83
[2023-03-13] MEDS: Metoprolol Tartrate 25 MG Tablet 12.5 MG PO ×2 (06:42→18:28)
[2023-03-13] MEDS: buPROPion (XL) 150 MG TABLET.XL PO (06:42)
[2023-03-13] MEDS: Ensure Plus High Protein 120 ML LIQUID PO ×2 (06:51→21:03)
[2023-03-13] MEDS: Nystatin Powder 15gm Bottle 1 APPLIC TOPICAL ×2 (06:51→18:32)
--- NOTE | 2023-03-13 09:10 | NURSING ---
8 am meds held at this time d/t emesis after breakfast. Small emesis is cream colored and appears somewhat curdled. Lg amount of brown liquid stool. Pericare done per 2 staff assist. New gown applied. Moderate amount of cream colored nasal congestion. New nasal cannula applied. O2 at 2 lpm. Elena beata given. Placed in recliner chair in common area. Call hewitt w/ in reach. Chair alarm in use. Will continue to monitor.
[2023-03-13 10:00] VITALS: PULSE 65; RESP 16
[2023-03-13] MEDS: Iron Polysaccharide Complex 150 MG CAPSULE PO (11:44)
[2023-03-13] MEDS: Tamsulosin HCl 0.4 MG Capsule PO (11:45)
[2023-03-13] MEDS: Aspirin 81 MG TAB.CHEW PO (11:45)
[2023-03-13] MEDS: Cholecalciferol (VIT D3) 25 MCG TABLET (1,000 UNITS) PO (11:45)
[2023-03-13] MEDS: Acetaminophen 500 MG Tablet 1000 MG PO (11:48)
--- NOTE | 2023-03-13 13:02 | PT ---
Spoke with pt's and daughter about starting family training on Friday daily at 11:00. Pt's and dtr both stated they will attend. Emphasized to family the need to be hands on assist during therapy sessions next week so they are able to truly determine if they will be able to assist pt at home.
[2023-03-13 13:33] VITALS: BP 102/54; PULSE 66; RESP 16; TEMP 36.4; O2SAT 93
[2023-03-13 18:28] VITALS: BP 124/85; PULSE 65
[2023-03-13] MEDS: traZODone 100 MG Tablet PO (21:02)
[2023-03-13] MEDS: Mirtazapine 15 MG Tablet 7.5 MG PO (21:02)
[2023-03-13] MEDS: Atorvastatin Calcium 40 MG Tablet PO (21:02)
[2023-03-14] MEDS: Ensure Plus High Protein 120 ML LIQUID PO ×3 (05:23→17:39)
[2023-03-14] MEDS: buPROPion (XL) 150 MG TABLET.XL PO (05:24)
[2023-03-14] MEDS: Pantoprazole Sodium 40 MG Tablet PO ×2 (05:24→17:39)
[2023-03-14] MEDS: lamoTRIgine 25 MG Tablet PO (05:24)
[2023-03-14] MEDS: Carbidopa/Levodopa 25/100 Tablet PO ×3 (05:24→17:39)
[2023-03-14] MEDS: Nystatin Powder 15gm Bottle 1 APPLIC TOPICAL ×2 (05:25→17:49)
[2023-03-14] MEDS: Umeclidinium Bromide Inhaler 1 PUFF INHALATION (05:26)
[2023-03-14 05:27] VITALS: BP 116/71; PULSE 69
[2023-03-14] MEDS: Metoprolol Tartrate 25 MG Tablet 12.5 MG PO ×2 (05:27→17:39)
[2023-03-14] MEDS: Senna/Docusate Sodium 1 Tablet PO ×2 (05:37→17:40)
[2023-03-14 05:46] LABS: Hemoglobin 9.7 g/dL (13.0-16.5)
[2023-03-14] MEDS: Aspirin 81 MG TAB.CHEW PO (08:20)
[2023-03-14] MEDS: Tamsulosin HCl 0.4 MG Capsule PO (08:21)
[2023-03-14] MEDS: Cholecalciferol (VIT D3) 25 MCG TABLET (1,000 UNITS) PO (08:21)
[2023-03-14] MEDS: Ferrous Sulfate 300 MG/5 ML UDC PO ×2 (08:31→17:39)
[2023-03-14 09:00] VITALS: O2SAT 95
[2023-03-14 11:59] VITALS: O2SAT 2
[2023-03-14 16:00] VITALS: BP 101/50; PULSE 73; RESP 18; TEMP 35.7; O2SAT 96
[2023-03-14 17:39] VITALS: PULSE 73
[2023-03-14] MEDS: Atorvastatin Calcium 40 MG Tablet PO (22:28)
[2023-03-14] MEDS: Mirtazapine 15 MG Tablet 7.5 MG PO (22:28)
[2023-03-14] MEDS: traZODone 100 MG Tablet PO (22:28)
[2023-03-15 04:34] VITALS: PULSE 81
[2023-03-15] MEDS: Umeclidinium Bromide Inhaler 1 PUFF INHALATION (04:34)
[2023-03-15] MEDS: Metoprolol Tartrate 25 MG Tablet 12.5 MG PO ×2 (04:34→18:22)
[2023-03-15] MEDS: buPROPion (XL) 150 MG TABLET.XL PO (04:34)
[2023-03-15] MEDS: lamoTRIgine 25 MG Tablet PO (04:34)
[2023-03-15] MEDS: Ensure Plus High Protein 120 ML LIQUID PO ×4 (04:34→21:02)
[2023-03-15] MEDS: Senna/Docusate Sodium 1 Tablet PO ×2 (04:34→18:22)
[2023-03-15] MEDS: Carbidopa/Levodopa 25/100 Tablet PO ×3 (04:36→18:22)
[2023-03-15] MEDS: Pantoprazole Sodium 40 MG Tablet PO ×2 (04:36→18:22)
[2023-03-15] MEDS: Nystatin Powder 15gm Bottle 1 APPLIC TOPICAL ×2 (04:42→18:32)
[2023-03-15 06:44] VITALS: O2SAT 90
[2023-03-15] MEDS: Aspirin 81 MG TAB.CHEW PO (11:20)
[2023-03-15] MEDS: Cholecalciferol (VIT D3) 25 MCG TABLET (1,000 UNITS) PO (11:20)
[2023-03-15] MEDS: Ferrous Sulfate 300 MG/5 ML UDC PO ×2 (11:20→18:22)
[2023-03-15] MEDS: Tamsulosin HCl 0.4 MG Capsule PO (11:20)
[2023-03-15 16:00] VITALS: BP 119/61; PULSE 68; RESP 18; TEMP 36.5; O2SAT 95
[2023-03-15 18:22] VITALS: BP 119/61; PULSE 68
[2023-03-15] MEDS: Atorvastatin Calcium 40 MG Tablet PO (20:59)
[2023-03-15] MEDS: traZODone 100 MG Tablet PO (20:59)
[2023-03-15] MEDS: Mirtazapine 15 MG Tablet 7.5 MG PO (20:59)
[2023-03-16] MEDS: Umeclidinium Bromide Inhaler 1 PUFF INHALATION (05:21)
[2023-03-16] MEDS: Carbidopa/Levodopa 25/100 Tablet PO ×3 (05:22→18:21)
[2023-03-16] MEDS: buPROPion (XL) 150 MG TABLET.XL PO (05:22)
[2023-03-16] MEDS: Pantoprazole Sodium 40 MG Tablet PO ×2 (05:22→18:21)
[2023-03-16] MEDS: Ensure Plus High Protein 120 ML LIQUID PO ×3 (05:23→18:33)
[2023-03-16] MEDS: Senna/Docusate Sodium 1 Tablet PO ×2 (05:23→18:24)
[2023-03-16] MEDS: Nystatin Powder 15gm Bottle 1 APPLIC TOPICAL ×2 (05:23→18:24)
[2023-03-16] MEDS: lamoTRIgine 25 MG Tablet PO (05:23)
[2023-03-16 05:27] VITALS: BP 115/50; PULSE 67
[2023-03-16] MEDS: Metoprolol Tartrate 25 MG Tablet 12.5 MG PO ×2 (05:27→18:21)
[2023-03-16 07:06] LABS: Hematocrit 29.6 % (40-54); Hemoglobin 9.5 g/dL (13.0-16.5)
[2023-03-16] MEDS: Aspirin 81 MG TAB.CHEW PO (09:18)
[2023-03-16] MEDS: Cholecalciferol (VIT D3) 25 MCG TABLET (1,000 UNITS) PO (09:18)
[2023-03-16] MEDS: Ferrous Sulfate 300 MG/5 ML UDC PO ×2 (09:18→18:21)
[2023-03-16] MEDS: Tamsulosin HCl 0.4 MG Capsule PO (09:18)
[2023-03-16 12:02] VITALS: O2SAT 94
[2023-03-16 13:52] VITALS: BP 104/54; PULSE 66; RESP 16; TEMP 36.2; O2SAT 98
[2023-03-16 15:34] VITALS: PULSE 77; RESP 18
[2023-03-16] MEDS: Ipratropium/Albuterol Sulfate 3 ML AMPUL.NEB INHALATION (15:34)
--- NOTE | 2023-03-16 16:32 | RAD_ITS ---
INDICATION: cough EXAMINATION/TECHNIQUE: X-RAY - XR Chest 2 Views COMPARISON: 06/04/2022 FINDINGS: LINES/DEVICES: None. LUNGS: Multiple ill-defined nodular opacities are seen in the left hemithorax most likely represent healing rib fractures at the posterior aspect of the left fourth, fifth, sixth, seventh, eighth, ninth ribs. Further evaluation by CT scan would be helpful to exclude a neoplastic process. Bilateral calcified granulomas. MEDIASTINUM AND CARDIOVASCULAR STRUCTURES: Cardiac silhouette not enlarged. Central airways and mediastinal contour are unremarkable. BONES AND SOFT TISSUES: Degenerative arthrosis in the shoulders. RAD/Chest PA and Lateral IMPRESSION: Multiple ill-defined nodular opacities are seen in the left hemithorax most likely represent healing rib fractures at the posterior aspect of the left fourth, fifth, sixth, seventh, eighth, ninth ribs. Further evaluation by CT scan would be helpful to exclude a neoplastic process. Electronically Signed: Kyler Chino MD at 17:45 EDT ,
--- NOTE | 2023-03-16 16:54 | NURSING ---
Pt has incresing rhonchi and exp wheezes this afternoon. He had an emesis while having a coughing spell while daughter was here. Dr. Pérez notified. Orders for chest xray and to start pt on antibiotic
[2023-03-16 18:21] VITALS: BP 102/54; PULSE 77
[2023-03-16] MEDS: Doxycycline 100 MG CAPSULE PO (18:24)
[2023-03-16] MEDS: Atorvastatin Calcium 40 MG Tablet PO (22:18)
[2023-03-16] MEDS: Mirtazapine 15 MG Tablet 7.5 MG PO (22:18)
[2023-03-16] MEDS: traZODone 100 MG Tablet PO (22:19)
[2023-03-17] MEDS: Doxycycline 100 MG CAPSULE PO ×2 (05:14→17:02)
[2023-03-17] MEDS: Umeclidinium Bromide Inhaler 1 PUFF INHALATION (05:14)
[2023-03-17] MEDS: Carbidopa/Levodopa 25/100 Tablet PO ×3 (05:15→16:53)
[2023-03-17] MEDS: lamoTRIgine 25 MG Tablet PO (05:15)
[2023-03-17] MEDS: buPROPion (XL) 150 MG TABLET.XL PO (05:15)
[2023-03-17] MEDS: Pantoprazole Sodium 40 MG Tablet PO ×2 (05:15→16:55)
[2023-03-17 05:16] VITALS: BP 104/51; PULSE 74
[2023-03-17] MEDS: Metoprolol Tartrate 25 MG Tablet 12.5 MG PO ×2 (05:16→17:02)
[2023-03-17] MEDS: Senna/Docusate Sodium 1 Tablet PO ×2 (05:17→17:02)
[2023-03-17] MEDS: Nystatin Powder 15gm Bottle 1 APPLIC TOPICAL ×2 (05:17→16:54)
[2023-03-17 07:00] VITALS: O2SAT 93
--- NOTE | 2023-03-17 07:00 | CPS ---
When RT walked into room pt NC was not in the pts nose. pt was sound asleep, This RT checked the pt pulse ox and it was 93%. kept pt off O2 for now.
[2023-03-17] MEDS: Aspirin 81 MG TAB.CHEW PO (09:27)
[2023-03-17] MEDS: Tamsulosin HCl 0.4 MG Capsule PO (09:27)
[2023-03-17] MEDS: Cholecalciferol (VIT D3) 25 MCG TABLET (1,000 UNITS) PO (09:27)
[2023-03-17] MEDS: Ferrous Sulfate 300 MG/5 ML UDC PO ×2 (09:27→16:52)
[2023-03-17] MEDS: Ensure Plus High Protein 120 ML LIQUID PO ×3 (11:55→20:01)
[2023-03-17 13:48] VITALS: BP 105/53; PULSE 69; RESP 14; TEMP 36.3; O2SAT 93
--- NOTE | 2023-03-17 15:49 | NURSING ---
Patient personal alarm on chair sounded. Therapist was walking by and heard the alarm and went in and patient was sitting floor. B\P was stable, a red petros on left lower back located. Remained at baseline of knowing his name. No injuries. Patient said he got up because he needed to the restroom. Patient lifted off floor and onto chair and was taken to the toilet. Dr. Pérez and Camille were informed.
[2023-03-17 17:02] VITALS: PULSE 69
--- NOTE | 2023-03-17 17:06 | PN.TCU_ITS ---
Subjective Subjective Resident seen, examined for regulatory visit. In the interim, therapy noticed resident had signature Parkinsonian signs and symptoms, Sinemet 25/100mg tid started with improvement. Resident had cough after aspiration, on doxycycline for treatment. He has no new problems, concerns, issues, complaints. Objective Data Objective Data Vital Signs: Vital Signs Temp Pulse Resp BP Pulse Ox O2 Del Method O2 Flow Rate 97.4 F L 69 14 105/53 L 93 Room Air 2 03/17/23 13:48 03/17/23 17:02 03/17/23 13:48 03/17/23 13:48 03/17/23 13:48 03/17/23 13:48 03/17/23 15:10 FiO2 99 02/24/23 20:04 Oxygen Flow Rate (L/min) 2 Oxygen Delivery Method Room Air Weight: 72.575 kg Body Mass Index (BMI) 24.3 Intake & Output: Intake and Output for Last 24 Hours 03/15/23 03/16/23 03/17/23 23:59 23:59 23:59 Intake Total 300 / 300 600 / 600 480 / 480 Balance 300 / 300 600 / 600 480 / 480 Lab / Micro Data Result Diagrams: 03/16/23 06:34 03/12/23 05:29 Micro: Microbiology 02/22/23 05:47 Nasal Secretion SARS-CoV-2 Antigen (Rapid) - Final 02/20/23 10:45 Nasal Secretion SARS-CoV-2 Antigen (Rapid) - Final 02/18/23 18:47 Nasal Secretion SARS-CoV-2 Antigen (Rapid) - Final Radiography Diagnostic Testing: Radiology Impression Chest X-Ray 03/16/23 16:32 IMPRESSION: Multiple ill-defined nodular opacities are seen in the left hemithorax most likely represent healing rib fractures at the posterior aspect of the left fourth, fifth, sixth, seventh, eighth, ninth ribs. Further evaluation by CT scan would be helpful to exclude a neoplastic process. Electronically Signed: Kyler Chino MD at 17:45 EDT , Physical Exam Const alert General Appearance: cooperative HEENT normocephalic Eyes PERRL and EOMs intact bilaterally Neck supple, no JVD and no carotid bruits Resp normal respiratory effort, normal air movement and clear to auscultation bilaterally Cardio regular rate and regular rhythm GI normal to inspection, nondistended, normoactive bowel sounds, non-tender and non-distended Extremity normal capillary refill General Extremity: Negative for edema Skin no rashes or lesions noted General Skin Exam: no breakdown Psych affect normal Appearance: appropriate Assessment & Plan Assessment/Plan (1) Debility: (2) Upper gastrointestinal bleeding: (3) Gastric necrosis: (4) COPD (chronic obstructive pulmonary disease): (5) GERD (gastroesophageal reflux disease): (6) Hypertension: (7) Bipolar disorder: (8) BPH (benign prostatic hyperplasia): (9) Coronary artery disease: (10) Obstructive sleep apnea: (11) Chronic kidney disease, stage 3a: PLAN: Plan 82 year old male with below past medical history hospitalized for gastric necrosis, 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 * Debility - PT/OT. * Dysphagia - ST. * Pain - Tylenol 1000mg q6h prn pain (1-10). * Bowel - senna/colace 2 tablet bid, Dulcolax 10mg pr daily prn. * Adult immunization - Administer pneumonia vaccine, covid19 vaccine, flu vaccine as appropriate. * DVT prophylaxis - Held, anemia. * Parkinson Disease - Sinemet 25/100mg tid helpful. * Aspiration bronchitis - Doxycycline 100mg bid thru 03/23/2023. * Coronary artery disease - Metoprolol 12.5mg bid, aspirin 81mg daily. * Hyperlipidemia - Atorvastatin 40mg qhs. * COPD - Incruse 1 puff daily, Duoneb 3ml q4h prn, home oxygen 2 liters per nasal cannula. * Bipolar disorder - Bupropion XL 150mg daily, Lamictal 25mg daily, stable chronic rodent exterminator use, GDR not recommended. * Insomnia - Melatonin 3mg qhs, Trazodone 100mg qhs. * Nutrition - MVI daily, Ensure Plus High 120ml 4xday. * Nausea - Zofran 4mg po q8h prn. * Severe gastritis - Pantoprazole 40mg bid. * BPH - Tamsulosin 0.4mg daily. * Vitamin D deficiency - D3 25mcg daily. * Iron deficiency anemia - Ferrous sulfate 300mg bidcm. * Appetite loss - Mirtazapine 7.5mg qhs. * Tinea Corporis - Nystatin powder topical bid. Capacity Capacity Assessment Tool Can the patient make a choice & communicate that choice?: Yes Can the patient understand benefits, risks and alternatives?: Yes Can the patient make a logical, rational choice?: Yes Is the choice the patient makes consistent w/ their values?: Yes Is there an impending, emergent risk to the patient?: No Does the patient have an Advance Directive?: Yes Is there a Surrogate Available?: Yes i.e. HCPOA: Yes i.e. close relative (spouse, child, parent, sibling)?: Yes
[2023-03-17] MEDS: traZODone 100 MG Tablet PO (19:54)
[2023-03-17] MEDS: Atorvastatin Calcium 40 MG Tablet PO (19:54)
[2023-03-17] MEDS: Mirtazapine 15 MG Tablet 7.5 MG PO (19:54)
[2023-03-17] MEDS: Acetaminophen 500 MG Tablet 1000 MG PO (19:58)
[2023-03-18] MEDS: Carbidopa/Levodopa 25/100 Tablet PO ×3 (05:33→18:05)
[2023-03-18] MEDS: Doxycycline 100 MG CAPSULE PO ×2 (05:33→18:06)
[2023-03-18] MEDS: Senna/Docusate Sodium 1 Tablet PO (05:33)
[2023-03-18] MEDS: lamoTRIgine 25 MG Tablet PO (05:33)
[2023-03-18] MEDS: buPROPion (XL) 150 MG TABLET.XL PO (05:33)
[2023-03-18 05:34] VITALS: BP 120/71; PULSE 77
[2023-03-18] MEDS: Metoprolol Tartrate 25 MG Tablet 12.5 MG PO ×2 (05:34→18:06)
[2023-03-18] MEDS: Nystatin Powder 15gm Bottle 1 APPLIC TOPICAL ×2 (05:34→18:07)
[2023-03-18] MEDS: Pantoprazole Sodium 40 MG Tablet PO ×2 (05:34→18:06)
[2023-03-18 07:36] VITALS: O2SAT 94
[2023-03-18] MEDS: Aspirin 81 MG TAB.CHEW PO (08:59)
[2023-03-18] MEDS: Cholecalciferol (VIT D3) 25 MCG TABLET (1,000 UNITS) PO (08:59)
[2023-03-18] MEDS: Ferrous Sulfate 300 MG/5 ML UDC PO ×2 (08:59→18:05)
[2023-03-18] MEDS: Tamsulosin HCl 0.4 MG Capsule PO (08:59)
[2023-03-18 12:00] VITALS: BMI 25.1
[2023-03-18] MEDS: Ensure Plus High Protein 120 ML LIQUID PO ×3 (12:05→19:57)
--- NOTE | 2023-03-18 13:45 | NS ---
Family follow-up regarding diet/portions: Spoke to resident's and daughter, Tanika regarding small meal portions and in between meal snacks due to hx of gastric bypass. Plan: small/half portions on meal trays with no more than 3-4 items per tray. Will have magic cups labeled and stocked in [facility] kitchenette freezer for snacks between meals as per family request. Resident also has 120mL ensure plus high protein ordered w/ medpass as tolerated. Will follow-up. Lana Harmon, MS, RD, LD
[2023-03-18 15:18] VITALS: BP 112/58; PULSE 72; RESP 19; TEMP 36.6; O2SAT 96
--- NOTE | 2023-03-18 15:39 | CASEMGMT ---
Social Work Dtr contacted this worker requesting an update on pt's progress and DC plans. SW offered to update after UR with IDT. -- SW phoned dtr to update that IDT set DC date 03/27 and d/t to high level of care, and concern with 's memory, recommending SNF placement. Dtr expressed understanding and agrees SNF would be most appropriate but pt's and brother are having a guilty-conscious with SNF placement. SW validated feelings and provided emotional support. Offered to assist with DC planning. Dtr stated is present in pt's room and requesting to speak with this worker about recommendations for DC as well. SW agreed to speak with . Dtr wanting to still give some autonomy, despite new dx of early onset Alzheimer's from PCP, reported by dtr. SW inquired about HCPOA paperwork and who is the alternate POA, daughter or son or no one. Dtr will provide copy to this worker to review. SW discussed financial liability of a SNF. Dtr requesting information be sent via secure email with SNF choices and information needed to determine [facility] eligibility. SW agreed. Dtr provided email and SW sent SNF list with quality and resource data via [employer], along with email of financial question for [facility], explaining estimated cost of SNF room and board and part B therapy coverage. Dtr appreciative. SW spoke with in room and updated on above information. Inquired about 's plans for pt's DC. reluctantly agreed taht she cannot care for pt at home and pt needs to DC to a SNF. SW acknowledged the difficulty decision. Provided SNF list with options. 's first choice is [facility] but is aware there is a waiting list. to speak with children on other options and to provide this worker with financial information. appreciative and agreeable to DC date 03/27. Plan: DC 03/27 to SNF, intermediate, part B therapies SHYLA Leslie
[2023-03-18 18:06] VITALS: BP 112/58; PULSE 72
[2023-03-18 19:39] VITALS: PULSE 71; RESP 16; O2SAT 94
[2023-03-18] MEDS: Mirtazapine 15 MG Tablet 7.5 MG PO (19:56)
[2023-03-18] MEDS: traZODone 100 MG Tablet PO (19:56)
[2023-03-18] MEDS: Atorvastatin Calcium 40 MG Tablet PO (19:57)
--- NOTE | 2023-03-18 21:06 | DS.PCM_ITS ---
Providers Date of Admission: 02/18/23 Primary Care Physician: Dr. 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 - Other diseases of stomach and duodenum (4) COPD (chronic obstructive pulmonary disease): Status: Chronic Code(s): J44.9 - Chronic obstructive pulmonary disease, unspecified (5) GERD (gastroesophageal reflux disease): Status: Acute Code(s): K21.9 - Gastro-esophageal reflux disease without esophagitis (6) Hypertension: Status: Chronic Code(s): I10 - Essential (primary) hypertension (7) Bipolar disorder: Status: Acute Code(s): F31.9 - Bipolar disorder, unspecified (8) BPH (benign prostatic hyperplasia): Status: Acute Code(s): N40.0 - Benign prostatic hyperplasia without lower urinary tract symptoms (9) Coronary artery disease: Status: Acute Code(s): I25.10 - Atherosclerotic heart disease of [place] coronary artery without angina pectoris (10) Obstructive sleep apnea: Status: Acute Code(s): G47.33 - Obstructive sleep apnea (adult) (pediatric) (11) Chronic kidney disease, stage 3a: Status: Chronic Code(s): N18.31 - Chronic kidney disease, stage 3a Plan 82 year old male with below past medical history hospitalized for gastric necrosis, 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 * Debility - PT/OT. * Dysphagia - ST. * Pain - Tylenol 1000mg q6h prn pain (1-10). * Bowel - senna/colace 2 tablet bid, Dulcolax 10mg pr daily prn. * Adult immunization - Administer pneumonia vaccine, covid19 vaccine, flu vaccine as appropriate. * DVT prophylaxis - Held, anemia. * Parkinson Disease - Sinemet 25/100mg tid helpful. * Aspiration bronchitis - Doxycycline 100mg bid thru 03/23/2023. * Coronary artery disease - Metoprolol 12.5mg bid, aspirin 81mg daily. * Hyperlipidemia - Atorvastatin 40mg qhs. * COPD - Incruse 1 puff daily, Duoneb 3ml q4h prn, home oxygen 2 liters per nasal cannula. * Bipolar disorder - Bupropion XL 150mg daily, Lamictal 25mg daily, stable chronic chcf use, GDR not recommended. * Insomnia - Melatonin 3mg qhs, Trazodone 100mg qhs. * Nutrition - MVI daily, Ensure Plus High 120ml 4xday. * Nausea - Zofran 4mg po q8h prn. * Severe gastritis - Pantoprazole 40mg bid. * BPH - Tamsulosin 0.4mg daily. * Vitamin D deficiency - D3 25mcg daily. * Iron deficiency anemia - Ferrous sulfate 300mg bidcm. * Appetite loss - Mirtazapine 7.5mg qhs. * Tinea Corporis - Nystatin powder topical bid. Medications at Discharge Home Medications aspirin 81 mg tablet,delayed release 81 mg PO DAILY heart health 05/24/20 atorvastatin 40 mg tablet 40 mg PO QHS cholesterol 02/18/23 bupropion HCl 150 mg 24 hr tablet, extended release 150 mg PO DAILY antidepr essant 02/18/23 cholecalciferol (vitamin D3) 25 mcg (1,000 unit) tablet (Vitamin D3) 25 mcg PO DAILY supplement 02/18/23 ipratropium 0.5 mg-albuterol 3 mg (2.5 mg base)/3 mL nebulization soln 3 ml i nhalation Q4H PRN PRN wheezing/sob 02/18/23 lamotrigine 25 mg tablet (Lamictal) 25 mg PO DAILY seizures 02/18/23 metoprolol tartrate 25 mg tablet 12.5 mg PO BID BP 02/18/23 tamsulosin 0.4 mg capsule 0.4 mg PO DAILY prostate 02/18/23 umeclidinium 62.5 mcg/actuation blister powder for inhalation (Incruse Ellipta) 1 inh inhalation DAILY lungs 02/18/23 acetaminophen 500 mg tablet 1,000 mg PO Q6H PRN PRN Pain 1-10 #0 tabs 03/18/23 carbidopa 25 mg-levodopa 100 mg tablet 1 tab PO TIDAC #0 tabs 03/18/23 ferrous sulfate 300 mg (60 mg iron)/5 mL oral liquid 300 mg (5 mL) PO BIDCM #0 mL 03/18/23 food supplemt, lactose-reduced 0.08 gram-1.5 kcal/mL oral liquid (Ensure Plus High Protein) 120 ml PO 4X/DAY #0 mL 03/18/23 mirtazapine 15 mg tablet 7.5 mg PO QHS #0 tabs 03/18/23 nystatin 100,000 unit/gram topical powder (Nyamyc) 1 applic topical BID #0 grams 03/18/23 pantoprazole 40 mg tablet,delayed release 40 mg PO 0700,1700 #0 tabs 03/18/23 trazodone 100 mg tablet 100 mg PO QHS #0 tabs 03/18/23 Hospital Course Operations - (See below.) Procedures None Summary of Care Provided Minutes Spent on Discharge: 35 Hospital Course: 82 year old male with below past medical history hospitalized for gastric necrosis, 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 Mirtazapine 7.5mg qhs added for appetite loss. Sinemet 25/100mg tid added for Parkinson Disease. Discharge to SNF 03/27/2023, intermediate, part B therapies. Physical Exam Const alert General Appearance: cooperative HEENT normocephalic Eyes PERRL and EOMs intact bilaterally Neck supple, no JVD and no carotid bruits Resp normal respiratory effort, normal air movement and clear to auscultation bila terally Cardio regular rate and regular rhythm GI normal to inspection, nondistended, normoactive bowel sounds, non-tender and non-distended Extremity normal capillary refill General Extremity: Negative for edema Skin no rashes or lesions noted General Skin Exam: no breakdown Psych affect normal Appearance: appropriate Weight / BMI Weight Weight: 75.296 kg Body Mass Index (BMI) 25.1 ABG / Lab / Microbiology Data Result Diagrams: 03/16/23 06:34 03/12/23 05:29 Microbiology: Microbiology 02/22/23 05:47 Nasal Secretion SARS-CoV-2 Antigen (Rapid) - Final 02/20/23 10:45 Nasal Secretion SARS-CoV-2 Antigen (Rapid) - Final 02/18/23 18:47 Nasal Secretion SARS-CoV-2 Antigen (Rapid) - Final D/C Instructions Discharge Diet: No restrictions Discharge Activity: Return to Normal Activity, May Shower and Use Walker Weight Bearing Status: Weight bearing as tolerated Call your doctor if you observe: Fever of 101 or Higher, Inability to urinate, Inability to have a bowel movement, Shortness of breath, Dizziness, Fainting spells, Swelling in the ankles, Chest pain and Uncontrolled pain Additional Instructions: Discharge to SNF 03/27/2023, intermediate, part B therapies. Please Follow Up With: Caitlyn Paulson- neurology When: 4 weeks. Meaningful Use Info Meaningful Use Diagnoses (Choose all that apply): None applicable Discharge Plan Admission Admit Date/Time: 02/18/23 16:17 Primary Reason for Your Visit: Debility. Attending Provider: Jean Pérez Chi Primary Care Provider: Bradley Castrejon Discharge Orders/Prescriptions Prescriptions: New acetaminophen 500 mg Tablet 1,000 mg PO Q6H PRN PRN (Reason: Pain 1-10) Qty: 0 0RF trazodone 100 mg Tablet 100 mg PO QHS Qty: 0 0RF pantoprazole 40 mg Tablet,Delayed Release (Dr/Ec) 40 mg PO 0700,1700 Qty: 0 0RF ferrous sulfate 300 mg (60 mg iron)/5 mL Liquid 300 mg PO BIDCM Qty: 0 0RF mirtazapine 15 mg Tablet 7.5 mg PO QHS Qty: 0 0RF nystatin [Nyamyc] 100,000 unit/gram Powder 1 applic topical BID Qty: 0 0RF Protocol: *Topical Application Instructions APPLICATION INSTRUCTIONS: GROIN carbidopa-levodopa 25-100 mg Tablet 1 tab PO TIDAC Qty: 0 0RF Ensure Plus High Protein 0.08 gram-1.5 kcal/mL Liquid 120 ml PO 4X/DAY Qty: 0 0RF Continued aspirin 81 mg tablet,delayed release (DR/EC) 81 mg PO DAILY atorvastatin 40 mg Tablet 40 mg PO QHS ipratropium-albuterol 0.5 mg-3 mg(2.5 mg base)/3 mL Solution For Nebulization 3 ml inhalation Q4H PRN PRN (Reason: wheezing/sob) lamotrigine [Lamictal] 25 mg Tablet 25 mg PO DAILY metoprolol tartrate 25 mg Tablet 12.5 mg PO BID cholecalciferol (vitamin D3) [Vitamin D3] 25 mcg (1,000 unit) Tablet 25 mcg PO DAILY tamsulosin 0.4 mg capsule 0.4 mg PO DAILY bupropion HCl 150 mg tablet extended release 24 hr 150 mg PO DAILY Incruse Ellipta 62.5 mcg/actuation blister with device 1 inh INHALATION DAILY Discontinued albuterol sulfate 2.5 mg /3 mL (0.083 %) solution for nebulization 2.5 mg INHALATION Q4H PRN (Reason: shortness of breath or wheezing) Qty: 180 2RF multivitamin capsule 1 cap PO DAILY B-complex with vitamin C Capsule 1 cap PO DAILY Mucinex 1,200 mg tablet extended release 12hr 1,200 mg PO Q12H Qty: 60 2RF furosemide 40 mg Tablet 40 mg PO DAILY Rx Instructions: x4 doses acetylcysteine 200 mg/mL (20 %) Solution 1 ml INHALATION Q4H PRN PRN (Reason: Congestion) acetaminophen 325 mg Tablet 650 mg PO Q4H PRN (Reason: Pain) pantoprazole 40 mg Recon Soln 40 mg IV 0600,1700 melatonin 3 mg Tablet 3 mg PO QHS hydralazine 20 mg/mL Solution 20 mg IV Q6H PRN (Reason: BP >160) Rx Instructions: needed for SBP greater then 160 bisacodyl 10 mg Suppository [address] DAILY PRN (Reason: Constipation) budesonide 0.5 mg/2 mL Suspension For Nebulization 1 mg INHALATION BID ipratropium bromide 0.02 % Solution 2.5 ml INHALATION Q4H PRN (Reason: wheezing/sob) Therapeutic Multivitamins Tablet 1 tab PO DAILY metoprolol tartrate [Lopressor] 5 mg/5 mL Syringe 5 mg IV Q5M PRN (Reason: AFIB HR >100) Rx Instructions: AFIB HR >100 maximum total dose Sni-Au-Vvfhfh 15 mg per episode heparin (porcine) 5,000 unit/mL Syringe 5,000 unit SUBCUT Q8H ondansetron HCl (PF) [Zofran (PF)] 4 mg/2 mL Solution 4 mg IM Q6H PRN (Reason: Nausea) budesonide-formoterol [Symbicort] 160-4.5 mcg/actuation Hfa Aerosol Inhaler 2 puff INHALATION BID albuterol sulfate 90 mcg/actuation HFA aerosol inhaler 2 puff INHALATION Q4H PRN PRN (Reason: wheezing/sob) lamotrigine 150 mg tablet 150 mg PO DAILY Qty: 90 3RF Referrals / Follow Up: Bradley Castrejon MD [Primary Care Provider] - Disposition Disposition (needs filled in before D/C Order can be placed): NonSkilled NH/Intermed Care
--- NOTE | 2023-03-18 21:20 | TREXTCAR_ITS ---
Diet Diet Order/Speech Therapy: 02/18/23 17:07 Diet: Regular - General Food consistency:: Pureed Liquid Consistency:: Regular/Thin Type of Dietary Supplement:: [place] FOOD[place];SMALL PORTIONS Is pt able to select menu?: Yes Diet Comments: HALF PORTIONS-only 3-4 ITEMS/TRAY; smoothie w/B; meds crushed in applesauce Routine Orders/Code Status Code Status: DNRCC-A (No intubation.) Wound(s) Gibson feet: Wound Type: scattered abrasions midline abdomen: Wound Type: Surgical Incision Dressing Change: Dry Sterile Dressing left upper lip: Wound Type: Abrasion left elbow: Wound Type: Abrasion BUE: Wound Type: Abrasion L mid alva: Wound Type: Abrasion Therapies Weight Bearing: Weight bearing as tolerated Extremity Affected:: Bilateral Lower Physical Therapy: Eval and Treat Occupational Therapy: Eval and Treat Speech Therapy: Eval and Treat Problem/Diagnosis (1) Debility: Status: Acute Code(s): R53.81 - Other malaise (2) Upper gastrointestinal bleeding: Status: Acute Code(s): K92.2 - Gastrointestinal hemorrhage, unspecified (3) Gastric necrosis: Status: Acute Code(s): K31.89 - Other diseases of stomach and duodenum (4) COPD (chronic obstructive pulmonary disease): Status: Chronic Code(s): J44.9 - Chronic obstructive pulmonary disease, unspecified (5) GERD (gastroesophageal reflux disease): Status: Acute Code(s): K21.9 - Gastro-esophageal reflux disease without esophagitis (6) Hypertension: Status: Chronic Code(s): I10 - Essential (primary) hypertension (7) Bipolar disorder: Status: Acute Code(s): F31.9 - Bipolar disorder, unspecified (8) BPH (benign prostatic hyperplasia): Status: Acute Code(s): N40.0 - Benign prostatic hyperplasia without lower urinary tract symptoms (9) Coronary artery disease: Status: Acute Code(s): I25.10 - Atherosclerotic heart disease of [place] coronary artery without angina pectoris (10) Obstructive sleep apnea: Status: Acute Code(s): G47.33 - Obstructive sleep apnea (adult) (pediatric) (11) Chronic kidney disease, stage 3a: Status: Chronic Code(s): N18.31 - Chronic kidney disease, stage 3a Plan 82 year old male with below past medical history hospitalized for gastric necrosis, 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 * Debility - PT/OT. * Dysphagia - ST. * Pain - Tylenol 1000mg q6h prn pain (1-10). * Bowel - senna/colace 2 tablet bid, Dulcolax 10mg pr daily prn. * Adult immunization - Administer pneumonia vaccine, covid19 vaccine, flu vaccine as appropriate. * DVT prophylaxis - Held, anemia. * Parkinson Disease - Sinemet 25/100mg tid helpful. * Aspiration bronchitis - Doxycycline 100mg bid thru 03/23/2023. * Coronary artery disease - Metoprolol 12.5mg bid, aspirin 81mg daily. * Hyperlipidemia - Atorvastatin 40mg qhs. * COPD - Incruse 1 puff daily, Duoneb 3ml q4h prn, home oxygen 2 liters per nasal cannula. 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 * Insomnia - Melatonin 3mg qhs, Trazodone 100mg qhs. * Nutrition - MVI daily, Ensure Plus High 120ml 4xday. * Nausea - Zofran 4mg po q8h prn. * Severe gastritis - Pantoprazole 40mg bid. * BPH - Tamsulosin 0.4mg daily. * Vitamin D deficiency - D3 25mcg daily. * Iron deficiency anemia - Ferrous sulfate 300mg bidcm. * Appetite loss - Mirtazapine 7.5mg qhs. * Tinea Corporis - Nystatin powder topical bid. Allergies/Procedures Done in Hospital Allergies meclizine Adverse Reaction (Verified 02/18/23 17:19) Other Procedures: - (See above.) Type of Care/Length of Stay Estimated LOS: More Than 30 Days Type of Care Needed: Intermediate Rehab Potential: Poor Prognosis: Poor Additional Orders/Day of Discharge Additional Orders: part B therapies Day of Discharge: 03/27/23 Dietary and Speech Recommendations Dietitian Recommendations/Changes: Will continue liberal Regular diet, consistency per [employer] ), w/ smoothie and magic cup w/ meals. Will continue to provide fortified foods with meals for increased nutrition if consumed. Will continue 4 oz ensure plus high protein 4x/day w/ medpass for increased nutrition if consumed. Continue appetite stimulant. Overall, res nutritional status is declining - rec consider supplemental nutrition support if in accordance w/ res/family wishes. Follow Up Care Please Follow Up With: Caitlyn Dominguezby- neurology When: [phone] Discharge Plan Admission Admit Date/Time: 02/18/23 16:17 Primary Reason for Your Visit: Debility. Attending Provider: Jean Pérez Chi Primary Care Provider: Bradley Castrejon Discharge Orders/Prescriptions Prescriptions: New acetaminophen 500 mg Tablet 1,000 mg PO Q6H PRN PRN (Reason: Pain 1-10) Qty: 0 0RF trazodone 100 mg Tablet 100 mg PO QHS Qty: 0 0RF pantoprazole 40 mg Tablet,Delayed Release (Dr/Ec) 40 mg PO 0700,1700 Qty: 0 0RF ferrous sulfate 300 mg (60 mg iron)/5 mL Liquid 300 mg PO BIDCM Qty: 0 0RF mirtazapine 15 mg Tablet 7.5 mg PO QHS Qty: 0 0RF nystatin [Nyamyc] 100,000 unit/gram Powder 1 applic topical BID Qty: 0 0RF Protocol: *Topical Application Instructions APPLICATION INSTRUCTIONS: GROIN carbidopa-levodopa 25-100 mg Tablet 1 tab PO TIDAC Qty: 0 0RF Ensure Plus High Protein 0.08 gram-1.5 kcal/mL Liquid 120 ml PO 4X/DAY Qty: 0 0RF Continued aspirin 81 mg tablet,delayed release (DR/EC) 81 mg PO DAILY atorvastatin 40 mg Tablet 40 mg PO QHS ipratropium-albuterol 0.5 mg-3 mg(2.5 mg base)/3 mL Solution For Nebulization 3 ml inhalation Q4H PRN PRN (Reason: wheezing/sob) lamotrigine [Lamictal] 25 mg Tablet 25 mg PO DAILY metoprolol tartrate 25 mg Tablet 12.5 mg PO BID cholecalciferol (vitamin D3) [Vitamin D3] 25 mcg (1,000 unit) Tablet 25 mcg PO DAILY tamsulosin 0.4 mg capsule 0.4 mg PO DAILY bupropion HCl 150 mg tablet extended release 24 hr 150 mg PO DAILY Incruse Ellipta 62.5 mcg/actuation blister with device 1 inh INHALATION DAILY Discontinued albuterol sulfate 2.5 mg /3 mL (0.083 %) solution for nebulization 2.5 mg INHALATION Q4H PRN (Reason: shortness of breath or wheezing) Qty: 180 2RF multivitamin capsule 1 cap PO DAILY B-complex with vitamin C Capsule 1 cap PO DAILY Mucinex 1,200 mg tablet extended release 12hr 1,200 mg PO Q12H Qty: 60 2RF furosemide 40 mg Tablet 40 mg PO DAILY Rx Instructions: x4 doses acetylcysteine 200 mg/mL (20 %) Solution 1 ml INHALATION Q4H PRN PRN (Reason: Congestion) acetaminophen 325 mg Tablet 650 mg PO Q4H PRN (Reason: Pain) pantoprazole 40 mg Recon Soln 40 mg IV 0600,1700 melatonin 3 mg Tablet 3 mg PO QHS hydralazine 20 mg/mL Solution 20 mg IV Q6H PRN (Reason: BP >160) Rx Instructions: needed for SBP greater then 160 bisacodyl 10 mg Suppository 10 mg [place] DAILY PRN (Reason: Constipation) budesonide 0.5 mg/2 mL Suspension For Nebulization 1 mg INHALATION BID ipratropium bromide 0.02 % Solution 2.5 ml INHALATION Q4H PRN (Reason: wheezing/sob) Therapeutic Multivitamins Tablet 1 tab PO DAILY metoprolol tartrate [Lopressor] 5 mg/5 mL Syringe 5 mg IV Q5M PRN (Reason: AFIB HR >100) Rx Instructions: AFIB HR >100 maximum total dose [id number] 15 mg per episode heparin (porcine) 5,000 unit/mL Syringe 5,000 unit SUBCUT Q8H ondansetron HCl (PF) [Zofran (PF)] 4 mg/2 mL Solution 4 mg IM Q6H PRN (Reason: Nausea) budesonide-formoterol [Symbicort] 160-4.5 mcg/actuation Hfa Aerosol Inhaler 2 puff INHALATION BID albuterol sulfate 90 mcg/actuation HFA aerosol inhaler 2 puff INHALATION Q4H PRN PRN (Reason: wheezing/sob) lamotrigine 150 mg tablet 150 mg PO DAILY Qty: 90 3RF Referrals / Follow Up: Bradley Castrejon MD [Primary Care Provider] - Disposition Disposition (needs filled in before D/C Order can be placed): NonSkilled NH/Intermed Care
[2023-03-19 05:30] LABS: Absolute Lymphocyte Count 1.31 X10^3/uL (0.83-4.51); Absolute Neutrophil Count 4.5 X10^3/uL (2.0-7.7); Basophil# 0.04 X10^3/uL; Basophil% 0.6 % (0-1); Eosinophil# 0.27 X10^3/uL; Hemoglobin 9.5 g/dL (13.0-16.5); Lymphocyte # 1.31 X10^3/ul (0.83-4.51); Lymphocyte % 19.3 % (19-41); Mean Corp Hgb Conc 32.8 g/dL (32-36); Mean Corpuscular Volume 97.6 fL (80-94); Monocyte# 0.64 X10^3/uL; Monocyte% 9.4 % (0-10); NRBC Flagged by Analyzer 0 % (0-5); Neutrophil # 4.49 X10^3/uL (2.7-7.7); Neutrophil % 66.3 % (47-70); Platelet Count 284 K/mm3 (150-450); RBC Distribution Width CV 14.6 % (11.6-14.6); RBC Distribution Width SD 52.1 fl (35.1-43.9); Red Blood Count 2.97 M/mm3 (4.6-6.2); White Blood Count 6.8 K/mm3 (4.4-11.0)
[2023-03-19 06:06] LABS: Anion Gap 4 (5-15); BUN 21 mg/dL (7-18); Calcium,Total 8.6 mg/dL (8.5-10.1); Chloride 106 mmol/L (98-107); EST Glomerular Filtration Rate 48 mL/min (>60); Est Glom Filt Rate - Afr Amer 58 mL/min (>60); Glucose 92 mg/dL (74-106); Potassium 3.9 mmol/L (3.5-5.1); Sodium Level 140 mmol/L (136-145)
[2023-03-19] MEDS: buPROPion (XL) 150 MG TABLET.XL PO (06:31)
[2023-03-19] MEDS: Doxycycline 100 MG CAPSULE PO ×2 (06:31→17:13)
[2023-03-19] MEDS: Pantoprazole Sodium 40 MG Tablet PO ×2 (06:31→17:17)
[2023-03-19] MEDS: lamoTRIgine 25 MG Tablet PO (06:32)
[2023-03-19] MEDS: Carbidopa/Levodopa 25/100 Tablet PO ×3 (06:32→17:17)
[2023-03-19 06:33] VITALS: BP 92/47; PULSE 71
[2023-03-19] MEDS: Nystatin Powder 15gm Bottle 1 APPLIC TOPICAL ×2 (06:33→17:12)
[2023-03-19 07:25] VITALS: O2SAT 100
[2023-03-19] MEDS: Cholecalciferol (VIT D3) 25 MCG TABLET (1,000 UNITS) PO (08:21)
[2023-03-19] MEDS: Tamsulosin HCl 0.4 MG Capsule PO (08:21)
[2023-03-19] MEDS: Ferrous Sulfate 300 MG/5 ML UDC PO ×2 (08:21→17:13)
[2023-03-19] MEDS: Aspirin 81 MG TAB.CHEW PO (08:21)
[2023-03-19 10:00] VITALS: O2SAT 95
[2023-03-19] MEDS: Umeclidinium Bromide Inhaler 1 PUFF INHALATION (10:58)
--- NOTE | 2023-03-19 15:54 | CASEMGMT ---
Addendum entered by Alyssa Lane 03/20/23 16:32: SW followed up with [facility] and DON is reviewing. present on unit. SW spoke with and updated. provided this worker with financial paperwork to review. Pt appears to be over resources for Medicaid. However, unsure about the monthly income and relies on legal financial specialist and managing attorney. SW offered to refer to [facility] to confirm, but would prefer to speak with legal financial specialist first. Will continue to follow. Original Note: Social Work SW met with and requested referral to [facility] as well. SW updated that [facility] does not have beds but pt has been placed on waitlist. appreciative. SW placed referral to [facility] via [facility]. Will continue to follow. Alyssa aLne, [address] WORKER
[2023-03-19 16:00] VITALS: BP 90/47; PULSE 69; RESP 96; TEMP 36.6; O2SAT 90
[2023-03-19 17:13] VITALS: BP 107/59; PULSE 69
[2023-03-19] MEDS: Senna/Docusate Sodium 1 Tablet PO (17:13)
[2023-03-19] MEDS: Metoprolol Tartrate 25 MG Tablet 12.5 MG PO (17:13)
[2023-03-19] MEDS: Ensure Plus High Protein 120 ML LIQUID PO (17:18)
[2023-03-19] MEDS: traZODone 100 MG Tablet PO (20:43)
[2023-03-19] MEDS: Mirtazapine 15 MG Tablet 7.5 MG PO (20:43)
[2023-03-19] MEDS: Atorvastatin Calcium 40 MG Tablet PO (20:43)
[2023-03-20] MEDS: lamoTRIgine 25 MG Tablet PO (06:22)
[2023-03-20] MEDS: Senna/Docusate Sodium 1 Tablet PO ×2 (06:22→17:26)
[2023-03-20] MEDS: Doxycycline 100 MG CAPSULE PO ×2 (06:22→17:26)
[2023-03-20] MEDS: Pantoprazole Sodium 40 MG Tablet PO ×2 (06:22→17:26)
[2023-03-20] MEDS: Umeclidinium Bromide Inhaler 1 PUFF INHALATION (06:22)
[2023-03-20 06:23] VITALS: BP 103/65; PULSE 71
[2023-03-20] MEDS: Metoprolol Tartrate 25 MG Tablet 12.5 MG PO ×2 (06:23→17:26)
[2023-03-20] MEDS: buPROPion (XL) 150 MG TABLET.XL PO (06:23)
[2023-03-20] MEDS: Carbidopa/Levodopa 25/100 Tablet PO ×3 (06:23→17:26)
[2023-03-20] MEDS: Ensure Plus High Protein 120 ML LIQUID PO ×2 (06:30→20:25)
[2023-03-20] MEDS: Nystatin Powder 15gm Bottle 1 APPLIC TOPICAL ×2 (06:31→17:33)
[2023-03-20 07:28] VITALS: O2SAT 98
[2023-03-20] MEDS: Cholecalciferol (VIT D3) 25 MCG TABLET (1,000 UNITS) PO (08:21)
[2023-03-20] MEDS: Ferrous Sulfate 300 MG/5 ML UDC PO ×2 (08:21→17:26)
[2023-03-20] MEDS: Tamsulosin HCl 0.4 MG Capsule PO (08:21)
[2023-03-20] MEDS: Aspirin 81 MG TAB.CHEW PO (08:21)
[2023-03-20 15:00] VITALS: BP 103/56; PULSE 64; RESP 16; TEMP 36.3; O2SAT 92
[2023-03-20 17:26] VITALS: PULSE 68
--- NOTE | 2023-03-20 18:13 | EX.PCM.CON.G ---
HPI Consult Data Date of Consult: 03/20/23 HPI Narrative Reason for Consultation: vomiting HPI Narrative: JOSIE KERNS, is a 82-year-old man with a history of coronary artery disease diagnosed in 2019.? He had presented with chest discomfort was transferred to [facility] where he underwent a cardiac catheterization and then subsequently transferred to the [facility] where he elected to have bypass surgery.? He underwent a left internal mammary artery to the left anterior descending artery and a saphenous vein graft to the posterior descending artery.? Postoperatively he did develop atrial fibrillation for which he was put on amiodarone, beta-janusz, and anticoagulation.? The amiodarone and the anticoagulation was subsequently discontinued.? In April 2021, he underwent a Holter monitor which demonstrated an average heart rate of 79 bpm with occasional ectopic atrial tachycardia.? Stress test in April of the same year demonstrated no evidence of ischemia.? An echocardiogram performed demonstrated preserved ejection fraction of 55 to 60% with no wall motion abnormalities present.? He was hospitalized for gastric necrosis, underwent wedge gastrectomy with partial sleeve of stomach 02/04/2023, complicated by pleural effusion, hypoxia, dysphagia, admitted to TCU with debility, here for rehabilitation, strengthening, prior to discharge home. I was consulted to see him due to some persistent vomiting with possible regurgitation. Most the history is as obtained from the chart and the patient's son. He says that his father has been getting nauseous and is not sure if he is eating too fast since his surgery. He denies any abdominal pain with eating he just cannot eat much and is getting full fast and has been noted to have several episodes of vomiting. [facility] Medical History (Updated 03/20/23 @ 18:[address] Faria Friend, DO) Atherosclerotic heart disease of [place] coronary artery without angina pectoris Bipolar disorder BPH (benign prostatic hyperplasia) Chest congestion Chronic vomiting CKD (chronic kidney disease), stage III COPD (chronic obstructive pulmonary disease) Cough Degeneration of cervical intervertebral disc Depressive disorder Diarrhea Emphysema, unspecified History of alcohol abuse History of prostate cancer Hyperlipidemia Hypocalcemia Impotence of organic origin Macrocytic anemia Malignant neoplasm of skin Nonallopathic lesion of sacroiliac region SHELDON (obstructive sleep apnea) PAD (peripheral artery disease) Pancytopenia Postoperative atrial fibrillation (12/09/19) Sciatica Sleep disorder breathing Tobacco dependence in remission Tremor Volvulus of colon Home Medications aspirin 81 mg tablet,delayed release 81 mg PO DAILY heart health 05/24/20 [History Last Taken Unknown] atorvastatin 40 mg tablet 40 mg PO QHS cholesterol 02/18/23 [History Last Taken Unknown] bupropion HCl 150 mg 24 hr tablet, extended release 150 mg PO DAILY antidepressant 02/18/23 [History Last Taken Unknown] cholecalciferol (vitamin D3) 25 mcg (1,000 unit) tablet (Vitamin D3) 25 mcg PO DAILY supplement 02/18/23 [History Last Taken Unknown] ipratropium 0.5 mg-albuterol 3 mg (2.5 mg base)/3 mL nebulization soln 3 ml inhalation Q4H PRN PRN wheezing/sob 02/18/23 [History Last Taken Unknown] lamotrigine 25 mg tablet (Lamictal) 25 mg PO DAILY seizures 02/18/23 [History Last Taken Unknown] metoprolol tartrate 25 mg tablet 12.5 mg PO BID BP 02/18/23 [History Last Taken Unknown] tamsulosin 0.4 mg capsule 0.4 mg PO DAILY prostate 02/18/23 [History Last Taken Unknown] umeclidinium 62.5 mcg/actuation blister powder for inhalation (Incruse Ellipta) 1 inh inhalation DAILY lungs 02/18/23 [History Last Taken Unknown] acetaminophen 500 mg tablet 1,000 mg PO Q6H PRN PRN Pain 1-10 #0 tabs 03/18/23 [Rx Last Taken Unknown] carbidopa 25 mg-levodopa 100 mg tablet 1 tab PO TIDAC #0 tabs 03/18/23 [Rx Last Taken Unknown] ferrous sulfate 300 mg (60 mg iron)/5 mL oral liquid 300 mg (5 mL) PO BIDCM #0 mL 03/18/23 [Rx Last Taken Unknown] food supplemt, lactose-reduced 0.08 gram-1.5 kcal/mL oral liquid (Ensure Plus High Protein) 120 ml PO 4X/DAY #0 mL 03/18/23 [Rx Last Taken Unknown] mirtazapine 15 mg tablet 7.5 mg PO QHS #0 tabs 03/18/23 [Rx Last Taken Unknown] nystatin 100,000 unit/gram topical powder (Nyamyc) 1 applic topical BID #0 grams 03/18/23 [Rx Last Taken Unknown] pantoprazole 40 mg tablet,delayed release 40 mg PO 0700,1700 #0 tabs 03/18/23 [Rx Last Taken Unknown] trazodone 100 mg tablet 100 mg PO QHS #0 tabs 03/18/23 [Rx Last Taken Unknown] Allergy/AdvReac Type Severity Reaction Status Date / Time meclizine AdvReac Other Verified 02/18/23 17:19 Family History Father Emphysema, unspecified Heart disease Mother Kidney disease Heart disease Brother Heart disease Surgical History (Updated 02/18/23 @ 22:[address] Jean Pérez MD) H/O coronary artery bypass surgery (12/07/19) H/O hemicolectomy History of appendectomy History of cholecystectomy History of colonoscopy History of left inguinal hernia repair History of open heart surgery History of partial colectomy History of partial gastrectomy Social History (Updated 02/18/23 @ 22:[address] Jean Pérez MD) household members: spouse Smoking Status: Former smoker quit date: 08/29/13 Tobacco: How many years used: 54 second hand exposure: Yes alcohol intake: never substance use type: does not use what type of physical activity do you participate in: other details: cardiac rehab ROS Constitutional Constitutional: Denies chills, fever(s) or weight gain ENT HEENT: Denies headache(s), nasal congestion or nasal discharge Cardiovascular Cardiovascular: Denies chest pain or palpitations Respiratory/Chest Respiratory/Chest: Denies cough, excessive phlegm production or shortness of breath with exertion Gastrointestinal Gastrointestinal: Denies abdominal pain, nausea or vomiting Genitourinary Genitourinary: Denies dysuria Musculoskeletal Musculoskeletal: Denies joint pain or joint swelling Integumentary Integumentary: Denies rash or wounds Neurologic Neurologic: Denies focal weakness, numbness or tingling Psychiatric Psychiatric: Denies anxiety, auditory hallucinations, depression, homicidal ideation or suicidal ideation Physical Exam Const alert General Appearance: cooperative HEENT normocephalic Eyes PERRL and EOMs intact bilaterally Neck supple, no JVD and no carotid bruits Resp normal respiratory effort, normal air movement and clear to auscultation bilaterally Cardio regular rate and regular rhythm GI normal to inspection, nondistended, normoactive bowel sounds, non-tender and non-distended Extremity normal capillary refill General Extremity: Negative for edema Skin no rashes or lesions noted General Skin Exam: no breakdown Psych affect normal Appearance: appropriate Lab / Micro Data Result Diagrams: 03/19/23 05:19 03/19/23 05:19 Assessment & Plan Assessment/Plan (1) Vomiting: (2) Gastric necrosis: PLAN: Plan 82-year-old gentleman with past medical history of 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 It is unknown if he had a vagotomy and pyloroplasty as I do not know the location of the ulcer. I cannot find it on clinisync. I will order a CAT scan of the abdomen pelvis to evaluate his abdomen. He would likely need upper endoscopy to make sure he does not have any ulcerations at the site of anastomosis and to have GERD I direct visualization of his anatomy. For now recommend PPI therapy. If his upper endoscopy is normal then he would need a gastric emptying study. Charges/Coding Visit Charges Inpatient E&M: 30151 SNF Init L2
[2023-03-20] MEDS: Atorvastatin Calcium 40 MG Tablet PO (20:26)
[2023-03-20] MEDS: traZODone 100 MG Tablet PO (20:26)
[2023-03-20] MEDS: Mirtazapine 15 MG Tablet 7.5 MG PO (20:26)
[2023-03-20 20:36] VITALS: PULSE 96; RESP 16; O2SAT 99
[2023-03-21 06:42] VITALS: O2SAT 97
[2023-03-21] MEDS: Carbidopa/Levodopa 25/100 Tablet PO ×2 (08:37→11:44)
[2023-03-21] MEDS: Pantoprazole Sodium 40 MG Tablet PO (08:37)
[2023-03-21 08:38] VITALS: PULSE 68
[2023-03-21] MEDS: Metoprolol Tartrate 25 MG Tablet 12.5 MG PO (08:38)
[2023-03-21] MEDS: lamoTRIgine 25 MG Tablet PO (08:39)
[2023-03-21] MEDS: buPROPion (XL) 150 MG TABLET.XL PO (08:39)
[2023-03-21] MEDS: Nystatin Powder 15gm Bottle 1 APPLIC TOPICAL ×2 (09:21→21:51)
--- NOTE | 2023-03-21 09:59 | CASEMGMT ---
Addendum entered by Alyssa Lane 03/21/23 12:18: Pt is getting an EGD and will return to floor. SW updated [facility] and proceeded with DC plans. Scheduled cot transport through [facility]. PASRR completed. Original Note: Social Work SW followed up with [facility] and they can accept. However, when admissions spoke with , stated pt is going into surgery today and might not make it. SW to follow up with nursing. Will hold on scheduling transport and PASRR until further information on surgery is provided. SW to continue to follow. SHYLA LeslieW
[2023-03-21 14:16] VITALS: BP 105/54; PULSE 70; RESP 18; TEMP 36.2; O2SAT 99
[2023-03-21] MEDS: Scopolamine 1mg/72hr Patch 1 PATCH TD (21:49)
[2023-03-22] MEDS: Umeclidinium Bromide Inhaler 1 PUFF INHALATION (06:04)
[2023-03-22] MEDS: buPROPion (XL) 150 MG TABLET.XL PO (06:09)
[2023-03-22] MEDS: Doxycycline 100 MG CAPSULE PO ×2 (06:09→18:07)
[2023-03-22 06:10] VITALS: BP 119/61; PULSE 60
[2023-03-22] MEDS: lamoTRIgine 25 MG Tablet PO (06:10)
[2023-03-22] MEDS: Pantoprazole Sodium 40 MG Tablet PO ×2 (06:10→18:06)
[2023-03-22] MEDS: Senna/Docusate Sodium 1 Tablet PO ×2 (06:10→18:07)
[2023-03-22] MEDS: Ensure Plus High Protein 120 ML LIQUID PO ×4 (06:10→20:00)
[2023-03-22] MEDS: Metoprolol Tartrate 25 MG Tablet 12.5 MG PO ×2 (06:10→18:06)
[2023-03-22] MEDS: Carbidopa/Levodopa 25/100 Tablet PO ×3 (06:10→18:07)
[2023-03-22] MEDS: Nystatin Powder 15gm Bottle 1 APPLIC TOPICAL ×2 (06:18→18:07)
[2023-03-22] MEDS: Ferrous Sulfate 300 MG/5 ML UDC PO ×2 (08:02→18:05)
[2023-03-22] MEDS: Cholecalciferol (VIT D3) 25 MCG TABLET (1,000 UNITS) PO (08:02)
[2023-03-22] MEDS: Aspirin 81 MG TAB.CHEW PO (08:02)
[2023-03-22] MEDS: Tamsulosin HCl 0.4 MG Capsule PO (08:02)
[2023-03-22 18:06] VITALS: PULSE 77
[2023-03-22 19:47] VITALS: O2SAT 94
[2023-03-22] MEDS: Atorvastatin Calcium 40 MG Tablet PO (19:53)
[2023-03-22] MEDS: traZODone 100 MG Tablet PO (19:53)
[2023-03-22] MEDS: Mirtazapine 15 MG Tablet 7.5 MG PO (19:54)
[2023-03-22] MEDS: Acetaminophen 500 MG Tablet 1000 MG PO (20:01)
[2023-03-23] MEDS: 0.9% Saline Lock 10 ML Syringe IV (05:38)
[2023-03-23] MEDS: Umeclidinium Bromide Inhaler 1 PUFF INHALATION (05:44)
[2023-03-23] MEDS: Acetaminophen 500 MG Tablet 1000 MG PO ×2 (05:45→23:22)
[2023-03-23] MEDS: Pantoprazole Sodium 40 MG Tablet PO ×2 (05:45→17:20)
[2023-03-23 05:46] VITALS: BP 124/52; PULSE 72
[2023-03-23] MEDS: Metoprolol Tartrate 25 MG Tablet 12.5 MG PO ×2 (05:46→17:20)
[2023-03-23] MEDS: buPROPion (XL) 150 MG TABLET.XL PO (05:46)
[2023-03-23] MEDS: lamoTRIgine 25 MG Tablet PO (05:47)
[2023-03-23] MEDS: Doxycycline 100 MG CAPSULE PO ×2 (05:47→17:20)
[2023-03-23] MEDS: Senna/Docusate Sodium 1 Tablet PO ×2 (05:47→17:22)
[2023-03-23] MEDS: Carbidopa/Levodopa 25/100 Tablet PO ×3 (05:47→17:23)
[2023-03-23] MEDS: Nystatin Powder 15gm Bottle 1 APPLIC TOPICAL ×2 (05:51→17:20)
[2023-03-23 05:54] VITALS: O2SAT 94
[2023-03-23] MEDS: Ferrous Sulfate 300 MG/5 ML UDC PO ×2 (08:16→17:20)
[2023-03-23] MEDS: Aspirin 81 MG TAB.CHEW PO (08:16)
[2023-03-23] MEDS: Cholecalciferol (VIT D3) 25 MCG TABLET (1,000 UNITS) PO (08:17)
[2023-03-23] MEDS: Tamsulosin HCl 0.4 MG Capsule PO (08:17)
[2023-03-23 10:00] VITALS: PULSE 103; RESP 18
[2023-03-23] MEDS: Ensure Plus High Protein 120 ML LIQUID PO ×3 (12:34→23:18)
[2023-03-23 16:00] VITALS: BP 103/61; PULSE 63; RESP 16; TEMP 36.6; O2SAT 99
[2023-03-23 17:20] VITALS: BP 103/61; PULSE 63
[2023-03-23] MEDS: Mirtazapine 15 MG Tablet 7.5 MG PO (23:20)
[2023-03-23] MEDS: Atorvastatin Calcium 40 MG Tablet PO (23:20)
[2023-03-23] MEDS: traZODone 100 MG Tablet PO (23:20)
[2023-03-24] MEDS: Umeclidinium Bromide Inhaler 1 PUFF INHALATION (06:04)
[2023-03-24] MEDS: Pantoprazole Sodium 40 MG Tablet PO ×2 (06:04→16:45)
[2023-03-24] MEDS: Senna/Docusate Sodium 1 Tablet PO ×2 (06:04→16:47)
[2023-03-24] MEDS: buPROPion (XL) 150 MG TABLET.XL PO (06:04)
[2023-03-24 06:05] VITALS: BP 104/47; PULSE 59
[2023-03-24] MEDS: Carbidopa/Levodopa 25/100 Tablet PO ×3 (06:05→16:44)
[2023-03-24] MEDS: lamoTRIgine 25 MG Tablet PO (06:05)
[2023-03-24] MEDS: Nystatin Powder 15gm Bottle 1 APPLIC TOPICAL ×2 (06:05→16:46)
[2023-03-24 06:52] VITALS: O2SAT 96
--- NOTE | 2023-03-24 08:07 | NURSING ---
Verbal orders received on unit for CBC w/ Diff and BMP prior to dc per Dr. Pérez. Labs scheduled for 03/26 as last set of labs drawn 03/19.
[2023-03-24] MEDS: Ferrous Sulfate 300 MG/5 ML UDC PO ×2 (08:15→16:46)
[2023-03-24] MEDS: Tamsulosin HCl 0.4 MG Capsule PO (08:15)
[2023-03-24] MEDS: Cholecalciferol (VIT D3) 25 MCG TABLET (1,000 UNITS) PO (08:17)
[2023-03-24] MEDS: Aspirin 81 MG TAB.CHEW PO (08:17)
[2023-03-24 11:28] VITALS: BP 118/62; PULSE 71; RESP 18; TEMP 36.1; O2SAT 96
[2023-03-24] MEDS: Ensure Plus High Protein 120 ML LIQUID PO ×3 (12:04→21:01)
[2023-03-24] MEDS: Scopolamine 1mg/72hr Patch 1 PATCH TD (16:45)
[2023-03-24 16:49] VITALS: PULSE 78
[2023-03-24] MEDS: Metoprolol Tartrate 25 MG Tablet 12.5 MG PO (16:49)
[2023-03-24 20:52] VITALS: PULSE 90; RESP 14
[2023-03-24] MEDS: Mirtazapine 15 MG Tablet 7.5 MG PO (21:01)
[2023-03-24] MEDS: Atorvastatin Calcium 40 MG Tablet PO (21:01)
[2023-03-24] MEDS: traZODone 100 MG Tablet PO (21:01)
[2023-03-25] MEDS: Ensure Plus High Protein 120 ML LIQUID PO ×4 (05:09→21:06)
[2023-03-25] MEDS: Pantoprazole Sodium 40 MG Tablet PO ×2 (05:10→17:08)
[2023-03-25] MEDS: buPROPion (XL) 150 MG TABLET.XL PO (05:10)
[2023-03-25] MEDS: Umeclidinium Bromide Inhaler 1 PUFF INHALATION (05:10)
[2023-03-25] MEDS: lamoTRIgine 25 MG Tablet PO (05:10)
[2023-03-25] MEDS: Carbidopa/Levodopa 25/100 Tablet PO ×3 (05:10→17:08)
[2023-03-25] MEDS: Senna/Docusate Sodium 1 Tablet PO ×2 (05:10→17:08)
[2023-03-25] MEDS: Nystatin Powder 15gm Bottle 1 APPLIC TOPICAL ×2 (05:11→17:08)
[2023-03-25 05:12] VITALS: BP 138/69; PULSE 69
[2023-03-25] MEDS: Metoprolol Tartrate 25 MG Tablet 12.5 MG PO ×2 (05:12→17:11)
[2023-03-25 08:02] VITALS: O2SAT 95
[2023-03-25] MEDS: Aspirin 81 MG TAB.CHEW PO (09:23)
[2023-03-25] MEDS: Tamsulosin HCl 0.4 MG Capsule PO (09:23)
[2023-03-25] MEDS: Ferrous Sulfate 300 MG/5 ML UDC PO ×2 (09:23→17:08)
[2023-03-25] MEDS: Cholecalciferol (VIT D3) 25 MCG TABLET (1,000 UNITS) PO (09:23)
--- NOTE | 2023-03-25 10:15 | NURSING ---
Pt does not have scopalomine patch behind r ear. Unable to find it. Notified pharmacy. Will send up and this nurse will reapply for pt.
[2023-03-25] MEDS: Scopolamine 1mg/72hr Patch 1 PATCH TD (10:20)
[2023-03-25 10:55] VITALS: BMI 25.6
[2023-03-25 14:37] VITALS: BP 98/60; PULSE 64; RESP 16; TEMP 35.8; O2SAT 92
[2023-03-25 17:11] VITALS: BP 130/59; PULSE 72
[2023-03-25] MEDS: Mirtazapine 15 MG Tablet 7.5 MG PO (21:07)
[2023-03-25] MEDS: traZODone 100 MG Tablet PO (21:07)
[2023-03-25] MEDS: Atorvastatin Calcium 40 MG Tablet PO (21:08)
[2023-03-26 06:00] VITALS: BP 115/81; PULSE 73
[2023-03-26] MEDS: Umeclidinium Bromide Inhaler 1 PUFF INHALATION (06:00)
[2023-03-26] MEDS: lamoTRIgine 25 MG Tablet PO (06:00)
[2023-03-26] MEDS: Senna/Docusate Sodium 1 Tablet PO ×2 (06:00→16:53)
[2023-03-26] MEDS: Pantoprazole Sodium 40 MG Tablet PO ×2 (06:00→16:52)
[2023-03-26] MEDS: Ensure Plus High Protein 120 ML LIQUID PO ×3 (06:00→16:56)
[2023-03-26] MEDS: Metoprolol Tartrate 25 MG Tablet 12.5 MG PO ×2 (06:00→16:52)
[2023-03-26] MEDS: Carbidopa/Levodopa 25/100 Tablet PO ×3 (06:00→16:52)
[2023-03-26] MEDS: buPROPion (XL) 150 MG TABLET.XL PO (06:00)
[2023-03-26] MEDS: Nystatin Powder 15gm Bottle 1 APPLIC TOPICAL ×2 (06:00→16:53)
[2023-03-26 07:14] LABS: Absolute Lymphocyte Count 1.34 X10^3/uL (0.83-4.51); Absolute Neutrophil Count 5.7 X10^3/uL (2.0-7.7); Basophil# 0.05 X10^3/uL; Basophil% 0.6 % (0-1); Eosinophil# 0.27 X10^3/uL; Eosinophils% 3.3 % (0-5); Hematocrit 27.7 % (40-54); Hemoglobin 8.9 g/dL (13.0-16.5); Lymphocyte # 1.34 X10^3/ul (0.83-4.51); Lymphocyte % 16.3 % (19-41); Mean Corp Hgb Conc 32.1 g/dL (32-36); Mean Corpuscular Hgb 32.1 pg (27.0-32.0); Monocyte# 0.88 X10^3/uL; Monocyte% 10.7 % (0-10); NRBC Flagged by Analyzer 0 % (0-5); Neutrophil # 5.65 X10^3/uL (2.7-7.7); Neutrophil % 68.9 % (47-70); Platelet Count 241 K/mm3 (150-450); RBC Distribution Width CV 14.6 % (11.6-14.6); RBC Distribution Width SD 53.5 fl (35.1-43.9); Red Blood Count 2.77 M/mm3 (4.6-6.2); White Blood Count 8.2 K/mm3 (4.4-11.0)
[2023-03-26 07:35] LABS: Anion Gap 4 (5-15); BUN 17 mg/dL (7-18); BUN/Creat Ratio 11.1 RATIO (10-20); Calcium,Total 8.9 mg/dL (8.5-10.1); Chloride 109 mmol/L (98-107); Creatinine, Serum 1.53 mg/dL (0.70-1.30); EST Glomerular Filtration Rate 47 mL/min (>60); Est Glom Filt Rate - Afr Amer 57 mL/min (>60); Estimated Creatinine Clearance 37.25 ml/min; Glucose 91 mg/dL (74-106); Potassium 4.1 mmol/L (3.5-5.1); Sodium Level 141 mmol/L (136-145)
[2023-03-26] MEDS: Aspirin 81 MG TAB.CHEW PO (07:44)
[2023-03-26] MEDS: Ferrous Sulfate 300 MG/5 ML UDC PO ×2 (07:44→16:52)
[2023-03-26] MEDS: Tamsulosin HCl 0.4 MG Capsule PO (07:45)
[2023-03-26] MEDS: Cholecalciferol (VIT D3) 25 MCG TABLET (1,000 UNITS) PO (07:45)
[2023-03-26 08:11] VITALS: O2SAT 95
--- NOTE | 2023-03-26 10:39 | CASEMGMT ---
Social Work BIMS (12/11) and PHQ-9 (11/25) completed for MDS assessment. Alyssa Lane MSW ENVIRONMENTAL EDUCATOR
[2023-03-26 14:34] VITALS: BP 112/39; PULSE 76; RESP 18; TEMP 36.2; O2SAT 91
[2023-03-26 16:52] VITALS: PULSE 76
[2023-03-26] MEDS: Atorvastatin Calcium 40 MG Tablet PO (19:39)
[2023-03-26] MEDS: traZODone 100 MG Tablet PO (19:39)
[2023-03-26] MEDS: Mirtazapine 15 MG Tablet 7.5 MG PO (19:39)
[2023-03-26 19:53] VITALS: RESP 16; O2SAT 92
--- NOTE | 2023-03-26 21:15 | NURSING ---
[employer] entered room and found patient sitting on floor by wall, he had turned his recliner so that it was facing the nightstand. He stated he was trying to get in his drawers. Patient did say he bumped his head when it happened. No red petros, or bump noted to head. No other injuries noted. VS WNL. Patient assisted up to chair, assisted with getting ready for bed, then assisted to bed. Neuro assessments were completed. Will continue to monitor.
[2023-03-27] MEDS: Ensure Plus High Protein 120 ML LIQUID PO (06:26)
[2023-03-27] MEDS: Umeclidinium Bromide Inhaler 1 PUFF INHALATION (06:27)
[2023-03-27] MEDS: Carbidopa/Levodopa 25/100 Tablet PO (06:31)
[2023-03-27] MEDS: lamoTRIgine 25 MG Tablet PO (06:31)
[2023-03-27 06:32] VITALS: BP 109/71; PULSE 73
[2023-03-27] MEDS: Metoprolol Tartrate 25 MG Tablet 12.5 MG PO (06:32)
[2023-03-27] MEDS: buPROPion (XL) 150 MG TABLET.XL PO (06:32)
[2023-03-27] MEDS: Pantoprazole Sodium 40 MG Tablet PO (06:32)
[2023-03-27] MEDS: Senna/Docusate Sodium 1 Tablet PO (06:32)
[2023-03-27] MEDS: Nystatin Powder 15gm Bottle 1 APPLIC TOPICAL (06:37)
[2023-03-27] MEDS: Tamsulosin HCl 0.4 MG Capsule PO (08:35)
[2023-03-27] MEDS: Aspirin 81 MG TAB.CHEW PO (08:35)
[2023-03-27] MEDS: Ferrous Sulfate 300 MG/5 ML UDC PO (08:35)
[2023-03-27] MEDS: Cholecalciferol (VIT D3) 25 MCG TABLET (1,000 UNITS) PO (08:35)
[2023-03-27 10:30] VITALS: BP 96/53; PULSE 53; RESP 16; TEMP 36.7; O2SAT 94
== END 2023-03-27 10:30 | disposition intermediate care facility (04) | DRG 949 ==
PROVIDERS: Admitting Provider Family Medicine Geriatric Medicine; PCP Internal Medicine; Visit Provider Family Medicine Geriatric Medicine
DX: Z48.815 Encounter for surgical aftercare following surgery on the digestive system (principal); J69.0 Pneumonitis due to inhalation of food and vomit; J90 Pleural effusion, not elsewhere classified; G20 Parkinson's disease; D50.9 Iron deficiency anemia, unspecified; B35.4 Tinea corporis; I48.91 Unspecified atrial fibrillation; E55.9 Vitamin D deficiency, unspecified; F31.9 Bipolar disorder, unspecified; N18.31 Chronic kidney disease, stage 3a; J43.9 Emphysema, unspecified; I25.10 Atherosclerotic heart disease of native coronary artery without angina pectoris; I12.9 Hypertensive chronic kidney disease with stage 1 through stage 4 chronic kidney disease, or unspecified chronic kidney disease; K21.9 Gastro-esophageal reflux disease without esophagitis; G47.33 Obstructive sleep apnea (adult) (pediatric); E78.5 Hyperlipidemia, unspecified; K31.89 Other diseases of stomach and duodenum; Z87.891 Personal history of nicotine dependence; N40.0 Benign prostatic hyperplasia without lower urinary tract symptoms; Z79.899 Other long term (current) drug therapy; Z79.51 Long term (current) use of inhaled steroids; Z79.82 Long term (current) use of aspirin; Z90.3 Acquired absence of stomach [part of]; Z23 Encounter for immunization; G47.00 Insomnia, unspecified
CPT/HCPCS: 36415; 71046; 80048; 85014; 85018; 85025; 87426; 87811; 90677; 92507; 92526; 92610; 93005; 94640; 94668; 97110; 97112; 97116; 97162; 97166; 97530; 97535; 97802; G0009; J7120; A4216

== ENCOUNTER → 2023-03-18 | Outpatient (CLI) | payer MEDICARE, OTHER, SELFPAY | END | disposition home or self-care (01) | PROVIDERS: PCP Internal Medicine; Referring Provider Family Medicine Geriatric Medicine; Visit Provider Family Medicine Geriatric Medicine | DX: Z00.00 Encounter for general adult medical examination without abnormal findings (principal) ==

== ENCOUNTER → 2023-03-18 | Outpatient (CLI) | payer MEDICARE, OTHER, SELFPAY ==
--- NOTE | 2023-03-18 09:53 | CT_ITS ---
HISTORY: Other nonspecific abnormal finding of lung field. TECHNIQUE: Helically acquired images were obtained of the chest without contrast. A radiation dose optimization technique was used for this scan. 1116 images. COMPARISON: XR 03/16/2023. FINDINGS: LARGE AIRWAYS: Artifact with dynamic airway narrowing. Trace fluid in the right bronchus. LUNGS: Very mild emphysema with 2 mm biapical nodules or scars. Calcified granuloma with lingular atelectasis. Calcified granulomas and mild linear scarring in the bilateral lower lobes. PLEURA: No pneumothorax or significant pleural effusion. HEART/PERICARDIUM: Heart within normal limits in size. Postoperative changes in the mediastinum with midline sternotomy and coronary artery disease. No pericardial effusion. VESSELS: Thoracic aorta nondilated. MEDIASTINUM/SALBADOR: Borderline enlarged mediastinal lymph nodes. UPPER ABDOMEN: Cholecystectomy. Calcified splenic granulomas. BONES: Degenerative change. Nondisplaced and mildly displaced left third through ninth posterior and lateral rib fractures with callus formation. Old left 10th and right ninth rib fractures. CT/Chest without Contrast IMPRESSION: Multiple healing left rib fractures accounting for nodular opacities on recent radiograph. Very mild emphysema and scarring in the lung apices. Lingular atelectasis. Chronic granulomatous disease of the chest and abdomen. Electronically Signed: Jackie Byers MD at 14:06 EDT ,
== END | disposition home or self-care (01) ==
PROVIDERS: PCP Internal Medicine; Referring Provider Family Medicine Geriatric Medicine; Visit Provider Family Medicine Geriatric Medicine
DX: R91.8 Other nonspecific abnormal finding of lung field (principal)
CPT/HCPCS: 71250

== ENCOUNTER → 2023-03-20 | Outpatient (CLI) | payer MEDICARE, OTHER, SELFPAY ==
--- NOTE | 2023-03-20 18:57 | CT_ITS ---
STUDY: CT Abdomen And Pelvis W/ Contrast Injection 03/20/2023 8:10 PM REASON FOR EXAM: Male, 82 years old. Abdominal pain VOMITING AND GASTRIC NECROSIS Individualized dose optimization techniques were used for this CT. COMPARISON: 01.19.21. TECHNIQUE: CT Abdomen And Pelvis W/ Contrast Injection IV 100mL Isovue-300 FINDINGS: There are atherosclerotic calcifications of visualized coronary arteries. The visualized portions of the heart are within normal limits. Multiple median sternotomy wires are noted consistent for cardiac surgery. Stable right lower lobe calcified granuloma. Healing left rib fractures. Normal liver. There are surgical clips in the gallbladder fossa consistent with a prior cholecystectomy. Normal spleen. Normal pancreas. Normal bilateral adrenal glands. No acute findings of the right kidney. No acute findings of the left kidney. Focal wall thickening of the antrum of stomach. This can suggest a gastritis. Normal small intestine. Right hemicolectomy changes. There is non-visualization of the appendix. There are calcifications of the abdominal aorta. This is consistent for atherosclerotic disease. There is 34mm abdominal aortic aneurysm. Vascular workup can be obtained based on clinical correlation. Normal inferior vena cava. Subcentimeter mesenteric lymph nodes. Normal urinary bladder. There are prostatic seed implants. There is an umbilical hernia containing fat. There is bilateral neural foraminal stenosis at L4-5 and L5-S1. There are diffuse degenerative changes of the visualized lumbar spine. CT/Abdomen/Pelvis W IV Cont ONLY IMPRESSION: (NOT LISTED IN ORDER OF SIGNIFICANCE) Gastritis. 34mm abdominal aortic aneurysm. Other findings as above. Electronically Signed: Amos Rios MD at 20:15 EDT ,
== END | disposition home or self-care (01) ==
LOC: CT 18:55
PROVIDERS: PCP Internal Medicine; Referring Provider Internal Medicine Gastroenterology; Visit Provider Internal Medicine Gastroenterology
DX: R11.10 Vomiting, unspecified (principal); K31.89 Other diseases of stomach and duodenum
CPT/HCPCS: 74177; Q9967; A4216

== ENCOUNTER 2023-03-21 15:25 | Day surgery (SDC) | payer MEDICARE, OTHER, SELFPAY ==
[2023-03-21] VITALS (8 sets, daily range): BP systolic 73–131; BP diastolic 46–71; PULSE 63–72; RESP 16–18; TEMP 36.1–36.6; O2SAT 97–100; BMI 25.8
[2023-03-21] MEDS: Lactated Ringers 1,000 ML 15 ML IV (15:34)
--- NOTE | 2023-03-21 16:45 | IMM_PTH ---
PATIENT: JOSEI KERNS LOC: EN U#:[id number] AGE/SX: 82/M ROOM: RE03/21/[address]: Dr. Bienvenido Persaud DO : 1940 BED: DIS: 03/21/2023 SPEC #: [id number] RECD: 03/24/23 13:28 STATUS: GEORGES RELiza #: [id number] JEREMY: 03/21/23 16:[address]: Bienvenido Persaud DEPT: IMMUNOHISTOCHEMISTRY RECD BY: Pat Tony ENTERED: 03/24/23 13:29 SP TYPE: IMMUNO OTHR DR: Dr. Bradley Castrejon MD Tissues: Stomach, NOS Procedures: H Pylori (initial) PHYSICIAN & INSTITUTION [place] [id number] SPECIMEN INFORMATION: Tissue Source: Gastric body Clinical Info: Abnormal CT scan, GI bleed, gastritis Specimen Number: [id number] CPT code: 58993 METHODOLOGY: Deparaffinized sections of prefer/formalin-fixed tissue or PAP/DQ stained slides are incubated with monoclonal/polyclonal antibodies/oligonucleotide probes. Localization is made via biotin free immunoperoxidase method. Appropriate controls are performed and reacted as expected. Results on target cell population are indicated in the following table: RESULTS: ANTIBODY / CLONE RESULT H Pylori (polyclonal) negative These tests were developed and their performance characteristics determined by [facility]. They may not have been cleared or approved by the U.S. Food and Drug Administration. The FDA has determined that such clearance or approval is not necessary. The above immunohistochemical/dualISH markers are ordered and reviewed by the Pathologist. INTERPRETATION: Gastric body, biopsy: Negative for Helicobacter pylori organisms. SJ:luis 03/25/2023
--- NOTE | 2023-03-21 16:45 | EGD_PTH ---
PATIENT: JOSIE KERNS LOC: EN U#:[id number] AGE/SX: 82/M ROOM: RE03/21/[address]: Dr. Bienvenido Persaud DO : 1940 BED: DIS: 03/21/2023 SPEC #: [id number] RECD: 03/21/23 20:12 STATUS: GEORGES LISA #: [id number] JEREMY: 03/21/23 16:[address]: Bienvenido Persaud DEPT: SURGICAL PATHOLOGY RECD BY: Agnes Heaton ENTERED: 03/24/23 09:33 SP TYPE: EGD BIOPSY OT DR: Dr. Bradley Castrejon MD Tissues: Gastric mucous membrane Procedures: Surgery Specimen Level IV HEADER OPERATION: EGD ([facility] [place]) with biopsy PRE-OP DIAGNOSIS: Abnormal CT scan, GI bleed TISSUE SUBMITTED: Gastritis in the gastric body MICROSCOPIC DIAGNOSIS Gastric body, biopsy: Chronic gastritis. See comment. AM:luis 03/25/2023 COMMENT The results of immunohistochemistry for Helicobacter pylori will be reported separately ([id number]). MICROSCOPIC DESCRIPTION Slides are reviewed. GROSS DESCRIPTION Received in fixative is one container labeled with the patient's name and designated gastric body. The specimen consists of multiple irregular fragments of light holden soft tissue that in aggregate measure 0.6 x 0.6 x 0.1 cm. The specimen is totally submitted in one cassette. / SJ:luis 03/24/2023 TC:3 CPT: 46021
--- NOTE | 2023-03-21 17:00 | HP.PCM_ITS ---
History and Physical Date of Admission: 03/21/23 JOSIE KERNS, is a 82-year-old man with a history of coronary artery disease diagnosed in 2019.? He had presented with chest discomfort was transferred to [facility] where he underwent a cardiac catheterization and then subsequently transferred to the [facility] where he elected to have bypass surgery.? He underwent a left internal mammary artery to the left anterior descending artery and a saphenous vein graft to the posterior descending artery.? Postoperatively he did develop atrial fibrillation for which he was put on amiodarone, beta-janusz, and anticoagulation.? The amiodarone and the anticoagulation was subsequently discontinued.? In April 2021, he underwent a Holter monitor which demonstrated an average heart rate of 79 bpm with occasional ectopic atrial tachycardia.? Stress test in April of the same year demonstrated no evidence of ischemia.? An echocardiogram performed demonstrated preserved ejection fraction of 55 to 60% with no wall motion abnormalities present.? He was hospitalized for gastric necrosis, underwent wedge gastrectomy with partial sleeve of stomach 02/04/2023, complicated by pleural effusion, hypoxia, dysphagia, admitted to TCU with debility, here for rehabilitation, strengthening, prior to discharge home. I was consulted to see him due to some persistent vomiting with possible regurgitation.? Most the history is as obtained from the chart and the patient's son.? He says that his father has been getting nauseous and is not sure if he is eating too fast since his surgery.? He denies any abdominal pain with eating he just cannot eat much and is getting full fast and has been noted to have several episodes of vomiting. [facility] Medical History?(Updated 03/20/23 @ 18:[address] Faria Friend, DO) Atherosclerotic heart disease of [place] coronary artery without angina pectoris Bipolar disorder BPH (benign prostatic hyperplasia) Chest congestion Chronic vomiting CKD (chronic kidney disease), stage III COPD (chronic obstructive pulmonary disease) Cough Degeneration of cervical intervertebral disc Depressive disorder Diarrhea Emphysema, unspecified History of alcohol abuse History of prostate cancer Hyperlipidemia Hypocalcemia Impotence of organic origin Macrocytic anemia Malignant neoplasm of skin Nonallopathic lesion of sacroiliac region SHELDON (obstructive sleep apnea) PAD (peripheral artery disease) Pancytopenia Postoperative atrial fibrillation (12/09/19) Sciatica Sleep disorder breathing Tobacco dependence in remission Tremor Volvulus of colon Home Medications aspirin 81 mg tablet,delayed release 81 mg PO DAILY heart health 05/24/20 [History Last Taken Unknown] atorvastatin 40 mg tablet 40 mg PO QHS cholesterol 02/18/23 [History Last Taken Unknown] bupropion HCl 150 mg 24 hr tablet, extended release 150 mg PO DAILY antidepressant 02/18/23 [History Last Taken Unknown] cholecalciferol (vitamin D3) 25 mcg (1,000 unit) tablet (Vitamin D3) 25 mcg PO DAILY supplement 02/18/23 [History Last Taken Unknown] ipratropium 0.5 mg-albuterol 3 mg (2.5 mg base)/3 mL nebulization soln 3 ml inhalation Q4H PRN PRN wheezing/sob 02/18/23 [History Last Taken Unknown] lamotrigine 25 mg tablet (Lamictal) 25 mg PO DAILY seizures 02/18/23 [History Last Taken Unknown] metoprolol tartrate 25 mg tablet 12.5 mg PO BID BP 02/18/23 [History Last Taken Unknown] tamsulosin 0.4 mg capsule 0.4 mg PO DAILY prostate 02/18/23 [History Last Taken Unknown] umeclidinium 62.5 mcg/actuation blister powder for inhalation (Incruse Ellipta) 1 inh inhalation DAILY lungs 02/18/23 [History Last Taken Unknown] acetaminophen 500 mg tablet 1,000 mg PO Q6H PRN PRN Pain 1-10 #0 tabs 03/18/23 [Rx Last Taken Unknown] carbidopa 25 mg-levodopa 100 mg tablet 1 tab PO TIDAC #0 tabs 03/18/23 [Rx Last Taken Unknown] ferrous sulfate 300 mg (60 mg iron)/5 mL oral liquid 300 mg (5 mL) PO BIDCM #0 mL 03/18/23 [Rx Last Taken Unknown] food supplemt, lactose-reduced 0.08 gram-1.5 kcal/mL oral liquid (Ensure Plus High Protein) 120 ml PO 4X/DAY #0 mL 03/18/23 [Rx Last Taken Unknown] mirtazapine 15 mg tablet 7.5 mg PO QHS #0 tabs 03/18/23 [Rx Last Taken Unknown] nystatin 100,000 unit/gram topical powder (Nyamyc) 1 applic topical BID #0 grams 03/18/23 [Rx Last Taken Unknown] pantoprazole 40 mg tablet,delayed release 40 mg PO 0700,1700 #0 tabs 03/18/23 [Rx Last Taken Unknown] trazodone 100 mg tablet 100 mg PO QHS #0 tabs 03/18/23 [Rx Last Taken Unknown] Allergy/AdvReac Type Severity Reaction Status Date / Time meclizine AdvReac ? Other Verified 02/18/23 17:19 Family History? Father Emphysema, unspecified Heart diseaseMother Kidney disease Heart diseaseBrother Heart disease Surgical History?(Updated 02/18/23 @ 22:[address] Jean Pérez MD) H/O coronary artery bypass surgery (12/07/19) H/O hemicolectomy History of appendectomy History of cholecystectomy History of colonoscopy History of left inguinal hernia repair History of open heart surgery History of partial colectomy History of partial gastrectomy Social History?(Updated 02/18/23 @ 22:[address] Jean Pérez MD) household members:? spouse Smoking Status:? Former smoker quit date: 08/29/13 Tobacco: How many years used:? 54 second hand exposure:? Yes alcohol intake:? never substance use type:? does not use what type of physical activity do you participate in:? other details: cardiac rehab ROS Constitutional Constitutional: Denies chills, fever(s) or weight gain ENT HEENT: Denies headache(s), nasal congestion or nasal discharge Cardiovascular Cardiovascular: Denies chest pain or palpitations Respiratory/Chest Respiratory/Chest: Denies cough, excessive phlegm production or shortness of breath with exertion Gastrointestinal Gastrointestinal: Denies abdominal pain, nausea or vomiting Genitourinary Genitourinary: Denies dysuria Musculoskeletal Musculoskeletal: Denies joint pain or joint swelling Integumentary Integumentary: Denies rash or wounds Neurologic Neurologic: Denies focal weakness, numbness or tingling Psychiatric Psychiatric: Denies anxiety, auditory hallucinations, depression, homicidal ideation or suicidal ideation Physical Exam Const alert General Appearance: cooperative HEENT normocephalic Eyes PERRL and EOMs intact bilaterally Neck supple, no JVD and no carotid bruits Resp normal respiratory effort, normal air movement and clear to auscultation bilaterally Cardio regular rate and regular rhythm GI normal to inspection, nondistended, normoactive bowel sounds, non-tender and non-distended Extremity normal capillary refill General Extremity: Negative for edema Skin no rashes or lesions noted General Skin Exam: no breakdown Psych affect normal Appearance: appropriate Lab / Micro Data Result Diagrams: 03/19/23 05:19? 03/19/23 05:19? 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 It is unknown if he had a vagotomy and pyloroplasty as I do not know the location of the ulcer.? I cannot find it on clinisync.? I will order a CAT scan of the abdomen pelvis to evaluate his abdomen.? He would likely need upper endoscopy to make sure he does not have any ulcerations at the site of anastomosis and to have GERD I direct visualization of his anatomy.? For now recommend PPI therapy.? If his upper endoscopy is normal then he would need a gastric emptying study. I have examined the patient and the H&P has been reviewed. There are no clinical changes since date of exam.
--- NOTE | 2023-03-21 17:51 | OP.EGD_ITS ---
Patient Name: Froylan Vines Procedure Date: 03/21/2023 5:16 PM Date of : 1940 Age: 82 Procedure: Upper GI endoscopy Indications: Persistent vomiting of unknown cause Providers: Bienvenido Persaud DO Medicines: Monitored Anesthesia Care Patient Profile: This is an 82 year old male. Refer to note in patient chart for documentation of history and physical. Patient has symptoms of acute vomiting and chronic vomiting. Complications: No immediate complications. Procedure: Pre-Anesthesia Assessment: - Prior to the procedure, a History and Physical was performed, and patient medications and allergies were reviewed. The patient is competent. The risks and benefits of the procedure and the sedation options and risks were discussed with the patient. All questions were answered and informed consent was obtained. Patient identification and proposed procedure were verified by the physician. Mental Status Examination: normal. Prophylactic Antibiotics: The patient does not require prophylactic antibiotics. Prior Anticoagulants: The patient has taken no previous anticoagulant or antiplatelet agents. ASA Grade Assessment: III - A patient with severe systemic disease. After reviewing the risks and benefits, the patient was deemed in satisfactory condition to undergo the procedure. The anesthesia plan was to use monitored anesthesia care (MAC). Immediately prior to administration of medications, the patient was re-assessed for adequacy to receive sedatives. The heart rate, respiratory rate, oxygen saturations, blood pressure, adequacy of pulmonary ventilation, and response to care were monitored throughout the procedure. The physical status of the patient was re-assessed after the procedure. After obtaining informed consent, the endoscope was passed under direct vision. Throughout the procedure, the patient's blood pressure, pulse, and oxygen saturations were monitored continuously. The gastroscope was introduced through the mouth, and advanced to the second part of duodenum. The upper GI endoscopy was accomplished without difficulty. The patient tolerated the procedure well. Scope In: 5:30:01 PM Scope Out: 5:34:44 PM Total Procedure Duration Time 0 hours 4 minutes 43 seconds Findings: LA Grade A (one or more mucosal breaks less than 5 mm, not extending between tops of 2 mucosal folds) esophagitis with no bleeding was found 37 to 39 cm from the incisors. 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 This was characterized by congestion, edema and erythema. Biopsies were taken with a cold forceps for histology. Verification of patient identification for the specimen was done. Estimated blood loss was minimal. The first portion of the duodenum was normal. Biopsies were taken with a cold forceps for histology. Verification of patient identification for the specimen was done. Estimated blood loss was minimal. Impression: - LA Grade A acute esophagitis. 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 Biopsied. - Normal first portion of the duodenum. Biopsied. Recommendation: - Return patient to TCU for ongoing care. - Resume previous diet. - Gastric emptying study - Continue present medications. - Await pathology results. - Increase Protonix to twice daily - Scopolamine Q72 hrs -Dietary changes: AVOID simple carbs. Carbs consumed should be complex. Have protein with each meal/snack Eat ~3 meals + 3 snacks per day (reg spaced) Procedure Code(s): --- Professional --- 47694, Esophagogastroduodenoscopy, flexible, transoral; with biopsy, single or multiple CPT copyright 2017 [employer]. All rights reserved. The codes documented in this report are preliminary and upon oracle application consultant review may be revised to meet current compliance requirements. Bienvenido Persaud DO 03/21/2023 5:51:21 PM This report has been signed electronically. Number of Addenda: 0 Note Initiated On: 03/21/2023 5:16 PM
--- NOTE | 2023-03-21 17:52 | OP.CCLET_ITS ---
03/21/2023 Bradley Castrejon MD [address] [place] [address] [place] [address] Re : Upper GI endoscopy procedure for Froylan Vines Dear Dr. Castrejon This procedure was performed on Tuesday, March 21, 2023. My impressions and recommendations are as follows: Impressions : - LA Grade A acute esophagitis. 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 Biopsied. - Normal first portion of the duodenum. Biopsied. Recommendations : - Return patient to TCU for ongoing care. - Resume previous diet. - Gastric emptying study - Continue present medications. - Await pathology results. - Increase Protonix to twice daily - Scopolamine Q72 hrs -Dietary changes: AVOID simple carbs. Carbs consumed should be complex. Have protein with each meal/snack Eat ~3 meals + 3 snacks per day (reg spaced) My findings are described in the full procedure note, which is enclosed. If I can be of further assistance, please feel free to contact me at . Sincerely, Bienvenido Friend, 03/21/2023 5:51:21 PM This report has been signed electronically.
== END 2023-03-21 18:27 | disposition home or self-care (01) ==
LOC: EN 15:26 → AC 15:27
PROVIDERS: PCP Internal Medicine; Referring Provider Internal Medicine; Visit Provider Internal Medicine Gastroenterology
PROC: 0DJ08ZZ Inspection of Upper Intestinal Tract, Via Natural or Artificial Opening Endoscopic (ICD-10-PCS; CPT 43235; principal; 2023-03-21 16:40)
DX: K20.80 Other esophagitis without bleeding (principal); J44.9 Chronic obstructive pulmonary disease, unspecified; F31.9 Bipolar disorder, unspecified; N18.30 Chronic kidney disease, stage 3 unspecified; R11.10 Vomiting, unspecified; R60.9 Edema, unspecified; I25.10 Atherosclerotic heart disease of native coronary artery without angina pectoris; Z87.891 Personal history of nicotine dependence; K29.50 Unspecified chronic gastritis without bleeding; E78.5 Hyperlipidemia, unspecified; I12.9 Hypertensive chronic kidney disease with stage 1 through stage 4 chronic kidney disease, or unspecified chronic kidney disease; Z95.1 Presence of aortocoronary bypass graft; G47.33 Obstructive sleep apnea (adult) (pediatric); Z85.46 Personal history of malignant neoplasm of prostate
CPT/HCPCS: 43239; 88305; 88342